=== PATIENT | female | born 1985 | race Caucasian/White ===

== ENCOUNTER → 2019-09-03 17:20 | Outpatient (CLI) | payer BC, SELFPAY ==
[2019-09-03 11:43] VITALS: BMI 29.6
[2019-09-03 18:06] LABS: Amphetamine Urine VISTA NEGATIVE (<1000 ng/mL); Barbiturate Urine VISTA NEGATIVE (< 200 ng/mL); Benzodiazepine Urine VISTA NEGATIVE (< 200 ng/mL); Cocaine Urine VISTA NEGATIVE (< 300 ng/mL); Ecstacy Urine VISTA NEGATIVE (< 500 ng/mL); Methadone Urine VISTA NEGATIVE (< 300 ng/mL); PCP Urine VISTA NEGATIVE (< 25 ng/mL); THC Urine VISTA NEGATIVE (< 50 ng/mL); Vista UDS pH Range 6
[2019-09-03 19:03] LABS: Chlamydia Trachomatis by PCR Negative (Negative); Neisserai gonorrhoeae by PCR Negative (Negative); Probe Check PASS; Sample Adequacy Control PASS; Specimen Processing Control PASS
[2019-09-10 15:26] LABS: HPV APTIMA, High Risk Negative (Negative)
== END ==
PROVIDERS: Referring Provider Obstetrics & Gynecology; Visit Provider Obstetrics & Gynecology
DX: Z12.4 Encounter for screening for malignant neoplasm of cervix (principal); Z34.90 Encounter for supervision of normal pregnancy, unspecified, unspecified trimester
CPT/HCPCS: 80307; 87086; 87088; 87491; 87591; 87624; 88175; G0145

== ENCOUNTER → 2019-09-11 16:19 | Outpatient (CLI) | payer BC, SELFPAY ==
[2019-09-03 11:43] VITALS: BMI 29.6
[2019-09-11 17:07] LABS: Absolute Lymphocyte Count 2.01 X10^3/uL (0.83-4.51); Absolute Neutrophil Count 6.4 X10^3/uL (2.0-7.7); Basophil# 0.03 X10^3/uL; Basophil% 0.3 % (0-1); Eosinophil# 0.11 X10^3/uL; Eosinophils% 1.2 % (0-5); Hematocrit 36.1 % (37-47); Hemoglobin 12.1 g/dL (12.0-15.0); Lymphocyte # 2.01 X10^3/ul (4.0); Lymphocyte % 21.9 % (19-41); Mean Corp Hgb Conc 33.5 g/dL (32-36); Mean Corpuscular Hgb 30.9 pg (27.0-32.0); Mean Corpuscular Volume 92.1 fL (81-99); Mean Platelet Vol. 12.3 fl (6.2-12.0); Monocyte# 0.66 X10^3/uL; Monocyte% 7.2 % (0-10); NRBC Flagged by Analyzer 0 % (0-5); Neutrophil # 6.36 X10^3/uL (2.7-7.7); Neutrophil % 69.2 % (47-70); Platelet Count 232 K/mm3 (150-450); RBC Distribution Width CV 12.2 % (11.6-14.6); RBC Distribution Width SD 40.8 fl (35.1-43.9); Red Blood Count 3.92 M/mm3 (4.2-5.4); White Blood Count 9.2 K/mm3 (4.4-11.0)
[2019-09-11 17:43] LABS: NATERA MAILED SPECIMEN
[2019-09-12 09:15] LABS: HIV - WCH Non-Reactive (Nonreactive); Hepatitis B Surface Antigen Non-Reactive (Nonreactive); Hepatitis C Antibody Non-Reactive (Nonreactive); Rubella IgG 412.8 IU/mL
[2019-09-13 02:01] LABS: Rapid Plasmin Reagin (RPR) NONREACTIVE (NONREACTIVE)
== END ==
PROVIDERS: Referring Provider Obstetrics & Gynecology; Visit Provider Obstetrics & Gynecology
DX: Z34.81 Encounter for supervision of other normal pregnancy, first trimester (principal); Z31.430 Encounter of female for testing for genetic disease carrier status for procreative management
CPT/HCPCS: 36415; 85025; 86592; 86703; 86762; 86803; 86850; 86900; 86901; 87340

== ENCOUNTER → 2019-11-26 16:11 | Outpatient (CLI) | payer BC, SELFPAY ==
[2019-11-26 15:35] VITALS: BMI 31.7
[2019-11-26 17:40] LABS: T4 Free Direct 0.95 ng/dL (0.76-1.46); Thyroid Stim Hormone (TSH) 2.54 uIU/mL (0.358-3.74)
== END ==
PROVIDERS: Referring Provider Nurse Practitioner Women's Health; Visit Provider Nurse Practitioner Women's Health
DX: Z13.29 Encounter for screening for other suspected endocrine disorder (principal); E03.9 Hypothyroidism, unspecified
CPT/HCPCS: 36415; 84439; 84443

== ENCOUNTER → 2020-01-14 12:48 | Outpatient (CLI) | payer BC, SELFPAY ==
[2019-12-24 13:43] VITALS: BMI 32.2
[2020-01-14 13:27] LABS: Absolute Lymphocyte Count 1.75 X10^3/uL (0.83-4.51); Absolute Neutrophil Count 6.1 X10^3/uL (2.0-7.7); Basophil# 0.03 X10^3/uL; Basophil% 0.4 % (0-1); Eosinophil# 0.06 X10^3/uL; Eosinophils% 0.7 % (0-5); Hematocrit 32.9 % (37-47); Hemoglobin 10.9 g/dL (12.0-15.0); Lymphocyte # 1.75 X10^3/ul (4.0); Lymphocyte % 20.6 % (19-41); Mean Corp Hgb Conc 33.1 g/dL (32-36); Mean Corpuscular Hgb 31.1 pg (27.0-32.0); Mean Platelet Vol. 12.3 fl (6.2-12.0); Monocyte# 0.46 X10^3/uL; Monocyte% 5.4 % (0-10); NRBC Flagged by Analyzer 0 % (0-5); Neutrophil # 6.14 X10^3/uL (2.7-7.7); Neutrophil % 72.1 % (47-70); Platelet Count 167 K/mm3 (150-450); RBC Distribution Width CV 12.8 % (11.6-14.6); RBC Distribution Width SD 43.9 fl (35.1-43.9); White Blood Count 8.5 K/mm3 (4.4-11.0)
[2020-01-14 13:53] LABS: Glucose Challenge Gest 1H 50g 108 mg/dL (70-140)
== END ==
PROVIDERS: Referring Provider Obstetrics & Gynecology; Visit Provider Obstetrics & Gynecology
DX: Z13.1 Encounter for screening for diabetes mellitus (principal); O09.90 Supervision of high risk pregnancy, unspecified, unspecified trimester
CPT/HCPCS: 36415; 82950; 85025

== ENCOUNTER → 2020-02-11 14:09 | Outpatient (CLI) | payer BC, SELFPAY ==
[2020-02-11 13:26] VITALS: BMI 34.0
[2020-02-11 14:54] LABS: Absolute Lymphocyte Count 1.91 X10^3/uL (0.83-4.51); Absolute Neutrophil Count 5.9 X10^3/uL (2.0-7.7); Basophil# 0.03 X10^3/uL; Basophil% 0.4 % (0-1); Eosinophil# 0.08 X10^3/uL; Eosinophils% 0.9 % (0-5); Hematocrit 33.2 % (37-47); Lymphocyte # 1.91 X10^3/ul (4.0); Lymphocyte % 22.6 % (19-41); Mean Corp Hgb Conc 33.1 g/dL (32-36); Mean Corpuscular Hgb 30.6 pg (27.0-32.0); Mean Corpuscular Volume 92.5 fL (81-99); Mean Platelet Vol. 12.5 fl (6.2-12.0); Monocyte# 0.47 X10^3/uL; Monocyte% 5.5 % (0-10); NRBC Flagged by Analyzer 0 % (0-5); Neutrophil # 5.86 X10^3/uL (2.7-7.7); Neutrophil % 69.2 % (47-70); Platelet Count 172 K/mm3 (150-450); RBC Distribution Width CV 13.1 % (11.6-14.6); RBC Distribution Width SD 43.5 fl (35.1-43.9); Red Blood Count 3.59 M/mm3 (4.2-5.4); White Blood Count 8.5 K/mm3 (4.4-11.0)
[2020-02-11 15:27] LABS: T4 Free Direct 0.86 ng/dL (0.76-1.46); Thyroid Stim Hormone (TSH) 1.85 uIU/mL (0.358-3.74)
== END ==
PROVIDERS: Referring Provider Obstetrics & Gynecology; Visit Provider Obstetrics & Gynecology
DX: E03.9 Hypothyroidism, unspecified (principal); O99.019 Anemia complicating pregnancy, unspecified trimester; D64.9 Anemia, unspecified; Z3A.00 Weeks of gestation of pregnancy not specified
CPT/HCPCS: 36415; 84439; 84443; 85025

== ENCOUNTER → 2020-03-10 13:17 | Outpatient (CLI) | payer BC, SELFPAY ==
[2020-03-10 10:51] VITALS: BMI 34.7
== END ==
PROVIDERS: Referring Provider Obstetrics & Gynecology; Visit Provider Obstetrics & Gynecology
DX: O09.90 Supervision of high risk pregnancy, unspecified, unspecified trimester (principal)
CPT/HCPCS: 87081

== ENCOUNTER → 2020-03-24 09:22 | Outpatient (CLI) | payer BC, SELFPAY ==
[2020-03-17 10:42] VITALS: BMI 35.6
--- NOTE | 2020-03-24 09:26 | US_ITS ---
STUDY: SECOND AND THIRD TRIMESTER OBSTETRICAL ULTRASOUND - LIMITED REASON FOR EXAM: Female, 34 years old LARGER THEN DATES LMP: 07/01/2019. PRIOR ULTRASOUND: None. TECHNIQUE: Transabdominal TECHNICAL QUALITY: Adequate. FINDINGS: There is a single intrauterine fetus. The fetus is in a cephalic presentation. There is demonstrated cardiac activity with a heart rate of 144 bpm. There is a normal amniotic fluid volume. The largest amniotic fluid pocket measures 4 cm. The amniotic fluid index (ALEYDA) is 13 cm. The placenta is posterior and left lateral in location and is not low lying. There are Grade 3 placental changes. The cervix measures 3.5 cm in length. BIOMETRY: BPD: 9 cm: 36 weeks, 3 days HC: 33.4 cm: 38 weeks, 1 days AC: 37.6 cm: 40 weeks, 4 days FL: 7.4 cm: 38 weeks, 0 days Age by LMP: 38 weeks, 1 days. VIDYA by LMP: 04/06/2020. age by current US: 38 weeks, 2 days. VIDYA by current US: 04/05/2020. Estimated weight: 3691 grams, +/- 539 grams, 85 percentile. US/OB Limited With Biometrics IMPRESSION: Single live intrauterine gestation with a mean gestational age of 38 weeks and 2 days. Electronically Signed: Andrea Nieves MD at 11:15 EST , Service support ,
== END ==
PROVIDERS: Referring Provider Obstetrics & Gynecology; Visit Provider Obstetrics & Gynecology
DX: O26.849 Uterine size-date discrepancy, unspecified trimester (principal); Z3A.00 Weeks of gestation of pregnancy not specified
CPT/HCPCS: 76816

== ENCOUNTER 2020-03-26 04:35 | Inpatient (IN) | payer BC, SELFPAY ==
[2020-03-24 10:26] VITALS: BMI 35.4
[2020-03-26] VITALS (53 sets, daily range): BP systolic 105–158; BP diastolic 52–94; PULSE 78–109; RESP 16; TEMP 36.2–37.3; O2SAT 90–100; BMI 35.3
[2020-03-26] MEDS: Lactated Ringers 1,000 ML 50 ML IV (05:00)
[2020-03-26 05:13] LABS: Absolute Lymphocyte Count 2.29 X10^3/uL (0.83-4.51); Absolute Neutrophil Count 5.5 X10^3/uL (2.0-7.7); Basophil# 0.02 X10^3/uL; Basophil% 0.2 % (0-1); Eosinophil# 0.07 X10^3/uL; Eosinophils% 0.8 % (0-5); Hematocrit 33.5 % (37-47); Lymphocyte # 2.29 X10^3/ul (4.0); Mean Corp Hgb Conc 32.8 g/dL (32-36); Mean Corpuscular Hgb 30.1 pg (27.0-32.0); Mean Corpuscular Volume 91.5 fL (81-99); Mean Platelet Vol. 13.2 fl (6.2-12.0); Monocyte# 0.58 X10^3/uL; Monocyte% 6.8 % (0-10); NRBC Flagged by Analyzer 0 % (0-5); Neutrophil # 5.45 X10^3/uL (2.7-7.7); Neutrophil % 64.4 % (47-70); Platelet Count 152 K/mm3 (150-450); RBC Distribution Width CV 13.7 % (11.6-14.6); RBC Distribution Width SD 45.1 fl (35.1-43.9); Red Blood Count 3.66 M/mm3 (4.2-5.4); White Blood Count 8.5 K/mm3 (4.4-11.0)
[2020-03-26] MEDS: Lactated Ringers 500 ML 999 ML IV (06:00)
[2020-03-26] MEDS: fentaNYL-bupivacaine (epidural) 100 ML BAG EPIDURAL ×2 (06:53→11:56)
--- NOTE | 2020-03-26 07:16 | HP.PCM_ITS ---
- Problem List (1) SROM (spontaneous rupture of membranes) Status: Acute (2) 35 weeks gestation of Status: Acute Comment: electronic covid test ordered 03/03/20 (scheduled for 03/31/20 at 1330), 03/24 US nl (3) Anemia affecting Status: Acute Qualifiers: Comment: Start iron (4) History of delivery Status: Acute Comment: plan TOLAC 67% chance success. previous cs for NRFHTs. (5) History of tetanus, diphtheria, and acellular pertussis booster vaccination (Tdap) Status: Acute Comment: 01/14/20 (6) Hypothyroid Status: Acute Qualifiers: Comment: check labs q trimester(11/25:nl) (7) Status: Acute Qualifiers: Comment: NIPT low risk, carrier, and ntd screening planned. carrier neg. NL anatomy (8) Supervision of high-risk Status: Acute Qualifiers: Comment: PRR VIDYA 04/06/20 Boy - Low PC Rama Jose History and Physical Date of Admission: 03/26/20 Intake Vital Signs 03/24/20 Height 5 ft 2 in 03/24/20 Weight: 194 lb 03/24/20 BMI 35.4 03/24/20 BP 128/64 H Intake Visit Reasons: 38 WK OB Chief Complaint: est ob Shactor Helper Required: No Is patient in pain?: No Allergies Sulfa (Sulfonamide Antibiotics) Allergy (Mild, Verified 03/24/20 10:26) hives Medications fluticasone propionate 50 mcg/actuation nasal spray,suspension 2 spray INTRANASAL DAILY 09/03/19 [History Confirmed 03/24/20] levocetirizine 5 mg tablet 5 mg PO DAILY 09/03/19 [History Confirmed 03/24/20] levothyroxine 50 mcg tablet 50 mcg PO DAILY 09/03/19 [History Confirmed 03/24/20] vitamin#30 30 mg iron-10 mg iron-folic acid 1 mg-omg3 capsule cap PO 09/03/19 [History Confirmed 03/24/20] Last Menstral Period: 06/24/19 Zika: Zika virus screening: Negative : No PFSH PFSH Medical History Thyroid disorder (Acute) Chronic sinus infection (Chronic) Surgical History delivery delivered (Acute) H/O rhinoplasty (Acute) Hx of LASIK (Acute) Family History Mother Hypertension Hyperlipidemia TIA (transient ischemic attack) Father Hypertension Grandmother Uterine cancer, Onset Age: 60 Grandfather Cancer stomach cancer (paternal) Social History (Updated 03/24/20 @ 11:[address] Renetta Toribio MD) Smoking Status: Never smoker alcohol intake: current details: pre substance use type: does not use caffeine: Yes what type of physical activity do you participate in: walking seatbelt use: always do you feel safe at home: Yes additional social history: Jose- SSA Patient works in [employer] ([employer]) Pregancy History 2 Elective abortions Hx Para 1 Spontaneous abortions Hx # Term Pregnancies Ectopic pregnancies Hx # Pregnancies Multiple births # of living children Past Pregnancies Del. Date Name GA/Weeks Outcome Route Bth Weight Gen Labor Lgth Anesthesia Del [facility] Provider FOB Unknown Rama 11/09/2014 40 live - full term 7lbs 1oz Female spinal [facility] Dr. Carrington Delivery Date: NST Decels, spontaneous ROM, Pitocin decels Renetta Torbiio HPI 38 WK OB: Details: DEONTE SESAY is a 34 year old who presents with spontaneous rupture m embranes clear fluid and regular contractions. She had previous for nonreassuring heart tones OB Visit VIDYA Calculator Estimated Delivery Date Method Current WG Current Estimate 04/06/20 Ultrasound #1 38w 1d Other Estimates 03/30/20 LMP (Certain) 39w 1d Expected Delivery Route/Plan TOLAC by 41 weeks RLTCS vs IOL at that GA based on vizcaino score patient counseled regarding risks/benefits of trial of labor versus repeat . ACOG/uptodate education given to patient. 67 % likelihood of success per calculator TOLAC consent form signed: signed 01/27 Labor Preferences- CB/BF classes: no labor support person: Jose labor intervention preferences: open to AROM, would like to avoid pitocin if possible pain management options preferred: prefers natural but open to epidural cut cord/dad catch: maybe cord : [] PP control planned: [] discussed possible routes of delivery and associated risks: discussed possible delivery modalities and possible indications for each including R/B/A of , VAVD, FAVD and CS. questions answered. special requests: no Specific Issue/Plans flu vaccine: yes tdap vaccine: 01/13 rhogam: NA LARC form signed: 01/13 movement and labor precautions reviewed. Problem list reviewed and updated with the most current plan of care details and appropriate orders placed. Relevant counseling for the gestational age provided. Continue routine care and follow up unless otherwise noted in visit notes/problem list details Initial Weight: 160 lb Date EGA Weight BP Urine Prot Glucose FHR FuHt Pres Dilation Effaced St Visit Note 09/03/19 9w 1d 162 lb (+2 lb) 116/66 175 SM- CRL SM- CRL- 2.19cm SM- CRL- 2.19cm not consistent with LMP 10/01/19 13w 1d 165 lb 4 oz (+5 lb 4 oz) 126/70 Negative Negative 160 MH-no VB, LOF. Nausea lessening. Brief US to confirm FHT. Recent antibiotic for URI. Sx of yeast-enc OTC monistat 10/29/19 17w 1d 167 lb (+7 lb) 108/66 Negative Negative 145 18 Sm- no vb cramping discussed fatigue and stress. moving. 11/26/19 21w 1d 173 lb 8 oz (+13 lb 8 oz) 112/72 Negative Negative 147 21 MH-No VB, LOF. Good FM. Flu vaccine. Reviewed anatomy US MH-No VB, LOF. Good FM. Flu vaccine. MH-No VB, LOF. Good FM. Flu vaccine. TSH and T4 today. Reviewed normal anatomy US 12/24/19 25w 1d 176 lb 2 oz (+16 lb 2 oz) 120/76 Negative Negative 150 25 GP - no ctx, LOF, VB, DFM. GCT next visit. 01/14/20 28w 1d 180 lb 8 oz (+20 lb 8 oz) 122/60 Negative Negative 135 28 GP- no ctx, LOF, VB, DFM. GCT done but pending. TDAP given. LARC form signed. 01/28/20 30w 1d 120/80 140 30 SM- no vb lof good fm no regular ctx. tolac consent signed SM- no vb lof good fm no regular ctx. tolac consent signed. check cbc tsh next visit 02/11/20 32w 1d 186 lb 4 oz (+26 lb 4 oz) 130/82 Negative Negative 130 32 GP - no LOF, VB, DFM, ctx. Discussed COVID precautions and vaccine 02/25/20 34w 1d 188 lb (+28 lb) 124/80 135 34 SM- no vb lof good fm no regular ctx, discussed covid vaccine. 03/10/20 36w 1d 190 lb 4 oz (+30 lb 4 oz) 126/82 Negative Negative 180 155 36 Cephalic 0.5 50 -2 GP - no LOF, VB, DFM, ctx . Discussed labor preferences and routes of delivery. Baby tachy initially on doppler - NST done in office. 03/17/20 37w 1d 195 lb (+35 lb) 150 37 Cephalic 0.5 SM- no vb lof good fm no regular ctx 03/24/20 38w 1d 194 lb (+34 lb) 128/64 Negative Negative 140 38 Cephalic 0.5 SM- no vb lof good fm irregular ctx increased swelling ACOG First Trimester First Trimester: Desire for , Alcohol, Tobacco Cessation, Illicit/R ecreational Drug/Substance Use, Intimate Partner Violence, Barriers to care, Unstable Housing, Communication Barriers, Environmental/Work Hazards, Anticipated Course of Care, Toxoplasmosis Precations, Use of Any medications, Sexual activity, Exercise, Dental Care, Sauna/Hot tub use, Seat Belt use, Childbirth classes/Hospital facilities, , Travel, Indications for US and Screening for Aneuploidy Diagnostics Diagnostics Diagnostics Glucose 1 Hr 50 gm 108 mg/dL (70-140) 01/14/20 Hgb 11.0 g/dL (12.0-15.0) L 02/11/20 Hct 33.2 % (37-47) L 02/11/20 Details: HIV: Urine Culture: Sequential Screen: NIPT Screen: ROS Const Reports system reviewed and no additional complaints, except as docu Card Reports system reviewed and no additional complaints, except as docu Resp Reports system reviewed and no additional complaints, except as docu GI Reports system reviewed and no additional complaints, except as docu, Reports nausea Reports system reviewed and no additional complaints, except as docu Musc Reports system reviewed and no additional complaints, except as docu Exam Const General: cooperative, healthy appearing, comfortable, anxious [facility] Head: normal to inspection Nose: external nose normal Face and sinus: normal facial exam Neck Neck: normal visual inspection, full ROM, no lymphadenopathy Thyroid: thyroid normal Chest Chest palpation & inspection: normal inspection of the chest Resp Effort & Inspection: normal respiratory effort GI Inspection: normal to inspection Palpation: soft, other (gravid uterus) Other: vertex and appropriate size for gestational age Other: Cervical Exam: Extrem General: pedal edema Results POC Urinalysis 2 Dip (Clinic) Office Urine Glucose Negative Last Edit by Martita Carney on 03/24/20 10:3 1 Office Urine Protein Negative Last Edit by Martita Carney on 03/24/20 10:3 1 Assessment & Plan Problems 1. Supervision of high-risk O09.90 PRR VIDYA 04/06/20 Jesus CARTAGENA Rama Ojse 2. History of delivery Z98.891 plan TOLAC 67% chance success. previous cs for NRFHTs. 3. Hypothyroid E03.9 check labs q trimester(11/25:nl) 4. Anemia affecting O99.019 Start iron 5. 35 weeks gestation of Z3A.35 electronic covid test ordered 03/03/20 (scheduled for 03/31/20 at 1330) 6. Z34.90 NIPT low risk, carrier, and ntd screening planned. carrier neg. 14 NL anatomy 7. History of tetanus, diphtheria, and acellular pertussis booster vaccination (Tdap) Z92.29 01/14/20 Patient presents IAL, plan expectant management for , SROM clear fluid. Pain management: [plans epidural]. GBS negative. Management of any complications: [none] I have reviewed the [facility], [facility] and made any clinically relevant updates. Orders Orders: POC Urinalysis 2 Dip (Clinic) Today Coding Level of Care Code OB Routine Diagnoses Supervision of high-risk O09.90 History of delivery Z98.891 Hypothyroid E03.9 Anemia affecting O99.019 35 weeks gestation of Z3A.35 Z34.90 History of tetanus, diphtheria, and acellular pertussis booster vaccination (Tdap) Z92.29
[2020-03-26] MEDS: Lactated Ringers 1,000 ML 200 ML IV ×2 (09:09→14:07)
[2020-03-26] MEDS: Oxytocin 30 units/NS 500 ml 30 UNITS/500 ML IV.SOLN 334 UNITS IV (14:48)
--- NOTE | 2020-03-26 15:22 | PCM.OPRPT ---
Problem List (1) SROM (spontaneous rupture of membranes) Status: Acute (2) 35 weeks gestation of Status: Acute Comment: electronic covid test ordered 03/03/20 (scheduled for 03/31/20 at 1330), 03/24 US nl (3) Anemia affecting Status: Acute Qualifiers: Comment: Start iron (4) History of tetanus, diphtheria, and acellular pertussis booster vaccination (Tdap) Status: Acute Comment: 01/14/20 (5) Hypothyroid Status: Acute Qualifiers: Comment: check labs q trimester(11/25:nl) (6) History of delivery Status: Acute Comment: plan TOLAC 67% chance success. previous cs for NRFHTs. (7) Status: Acute Qualifiers: Comment: NIPT low risk, carrier, and ntd screening planned. carrier neg. NL anatomy (8) Supervision of high-risk Status: Acute Qualifiers: Comment: PRR VIDYA 04/06/20 Jesus - Low PC Rama Jose Vaginal Delivery Maternal Presentation: Active Labor 34yo at 38 weeks admitted in active labor. Made cervical change to complete dilation without augmentation Amniotic Membrane Rupture Type: Spontaneous at home Amniotic Fluid Description: Clear Final VIDYA: 04/06/20 Gestational age: 38 Weeks and 3 Days Date of Procedure: 03/26/20 Pre-Operative Diagnosis: Term , TOLAC, Active labor Post-Operative Diagnosis: Successful Surgery/ Procedure Performed: Spontaneous Vaginal Delivery Type of Anesthesia: Epidural Description of Procedure: Patient began pushing and delivered the head in the EFE presentation. The head was delivered atraumatically and a loose nuchal cord ?1 was identified and easily reduced over the infant's head. The anterior and posterior shoulders delivered without complication followed by the rest of the infant and the was placed on the maternal abdomen. Delayed cord clamping was employed for approximately 60 seconds. Cord was clamped and cut and gentle traction was applied to the cord and the placenta delivered spontaneously immediately following it was noted to be intact with three-vessel cord. The perineum and vagina were inspected and a midline second degree perineal laceration was noted and repaired in the standard fashion using 3-0 vicryl rapide suture. EBL was 150 cc. Patient and tolerated delivery well. Presentation: Vertex, MAKEDA Placental Delivery Description: Spontaneous Placenta Disposition: [facility] Cord Vessel Description: 3 Vessels Nuchal Cord Compression: Without compression Cord Entanglement: Around neck x 1, loose Drain: Bruno to straight drain Estimated Blood Loss: 150 Infant A gender: Male (1 minute): 8 (5 minute): 9 Episiotomy Description: None Laceration: Midline, Perineal Extension/lac, 2nd degree Medications given after delivery: IV Pitocin Complications: None Multi Select Codes - Urinary/Genital Urinary/Genital CPT Codes: 79171 delivery [facility]
[2020-03-26] MEDS: Naproxen 250 MG Tablet 500 MG PO (17:06)
[2020-03-26] MEDS: 0.9% Saline Lock 10 ML Syringe IV (17:19)
[2020-03-26] MEDS: Oxymetazoline 0.05% 1 SPRAY SPRAY.BTL NASAL (21:16)
[2020-03-26] MEDS: Acetaminophen 500 MG Tablet 1000 MG PO (23:46)
[2020-03-27] VITALS (8 sets, daily range): BP systolic 112–124; BP diastolic 58–72; PULSE 77–80; RESP 16–18; TEMP 36.3–36.6
[2020-03-27] MEDS: Naproxen 250 MG Tablet 500 MG PO ×2 (02:06→11:22)
[2020-03-27] MEDS: Levothyroxine 50 MCG Tablet PO (06:34)
--- NOTE | 2020-03-27 07:42 | PCM.PN.OB ---
Patient Problems: Active and Suspected Problems (Last Reviewed 03/24/20 @ 10:27 by Martita Carney) SROM (spontaneous rupture of membranes) (Acute) 35 weeks gestation of (Acute) electronic covid test ordered 03/03/20 (scheduled for 03/31/20 at 1330), 03/24 nl Anemia affecting (Acute) Start iron History of tetanus, diphtheria, and acellular pertussis booster vaccination (Tdap) (Acute) 01/14/20 Hypothyroid (Acute) check labs q trimester(11/25:nl) History of delivery (Acute) plan TOLAC 67% chance success. previous cs for NRFHTs. (Acute) NIPT low risk, carrier, and ntd screening planned. carrier neg. NL anatomy Supervision of high-risk (Acute) PRR VIDYA 04/06/20 Boy - Low CARTAGENA Rama Jose Subjective: Patient doing well without complaints. Tolerating PO. Ambulating and voiding without difficulty. Breast feeding well. Denies chest pain, shortness of breath, calf pain/swelling, fevers, chills, lightheadedness. - Physical Exam Vitals/I&O's: Vital Signs Temp Pulse Resp BP Pulse Ox 97.5 F L 80 16 114/58 L 100 03/27/20 03:42 03/27/20 03:42 03/27/20 03:42 03/27/20 03:42 03/26/20 17:33 Weight: 193 lb Body Mass Index (BMI) 35.3 Intake and Output for Last 24 Hours 03/25/20 03/26/20 03/27/20 23:59 23:59 23:59 Intake Total 3472.50 / 3472.50 Output Total 1000 / 1000 Balance 2472.50 / 2472.50 General: Alert, Oriented x3, Cooperative, No apparent distress, Well developed, Well nourished HEENT: Atraumatic, PERRLA, EOMI, Normocephalic Neck: Supple, No JVD Lungs: Normal air movement Cardiovascular: Regular rate Abdomen: Soft, Non Tender, Non-Distended, - - fundus firm Extremities: No Calf Tenderness, Edema - trace Neurological: Cranial nerves II-XII grossly intact, Neuro grossly intact Psych/Mental Status: Normal Affect, Appropriate Microbiology Past 72 Hours 03/26/20 05:10 Mucosa - Nose SARS-CoV-2 Antigen (Rapid) - Final Current Medications Acetaminophen (Acetaminophen 500 Mg Tablet) 1,000 mg PO Q8H PRN PRN PRN Reason: Pain Score 1-3 Last Admin: 03/26/20 23:46 Dose: 1,000 mg Documented by: Bisacodyl (Bisacodyl 10 Mg Suppository) 10 mg RC UD PRN PRN Reason: If no BM Dibucaine (Dibucaine 30 Gm Tube) 1 applic TOPICAL TID PRN PRN; Protocol PRN Reason: Discomfort Hydrocortisone (Hydrocortisone 2.5% Crm) 1 applic TOPICAL TID PRN PRN; Protocol PRN Reason: Discomfort Levothyroxine Sodium (Levothyroxine 50 Mcg Tablet) 50 mcg PO DAILY@0600 [facility] Last Admin: 03/27/20 06:34 Dose: 50 mcg Documented by: Methylergonovine Maleate (Methylergonovine 0.2 Mg/Ml Ampul) 0.2 mg IM X1 PRN PRN Reason: Excess bleeding/uterine atony Naproxen (Naproxen 250 Mg Tablet) 500 mg PO Q8H PRN PRN PRN Reason: Pain Score 1-3 Last Admin: 03/27/20 02:06 Dose: 500 mg Documented by: Ondansetron HCl (Ondansetron 4 Mg/2 Ml Vial) 4 mg IV Q4H PRN PRN PRN Reason: Nausea Oxycodone HCl (Oxycodone 5 Mg Tablet) 5 - 10 mg PO Q4H PRN PRN PRN Reason: Pain Score 4-10 Oxymetazoline HCl (Oxymetazoline 0.05% 1 Gordon Gordon.Btl) 1 spray NASAL BID [facility] Last Admin: 03/26/20 21:16 Dose: 1 spray Documented by: Senna/Docusate Sodium (Senna/Docusate Sodium 1 Tablet) 1 - 2 tablet PO DAILY PRN PRN PRN Reason: Constipation Simethicone (Simethicone 80 Mg Tablet) 80 mg PO PCHS PRN PRN Reason: Indigestion/Stomach pain Sodium Chloride (0.9% Saline Lock 10 Ml Syringe) 5 - 15 ml IV UD PRN PRN Reason: SALINE FLUSH Last Admin: 03/26/20 17:19 Dose: 10 ml Documented by: Medical Necessity - Tobacco Use Smoking Status: Never smoker Assessment/Plan All Active Problems (Last Reviewed 03/24/20 @ 10:27 by Martita Carney) SROM (spontaneous rupture of membranes) (Acute) 35 weeks gestation of (Acute) Anemia affecting (Acute) History of tetanus, diphtheria, and acellular pertussis booster vaccination (Tdap) (Acute) Hypothyroid (Acute) History of delivery (Acute) (Acute) Supervision of high-risk (Acute)
--- NOTE | 2020-03-27 07:43 | DCINST_ITS ---
Discharge Diet: No Restrictions Discharge Activity: Return to Normal Activity, May not drive while taking narcotic pain medications., May Shower May resume sexual activity in: 4-6 weeks Additional Activity Instructions:: Nothing in the vagina for 4-6 weeks. You may return to work/school in 6 weeks. Call your doctor if your incision/area has: Continuous Slow Oozing, Sudden Increased Bleeding, Increased Pain/ Swelling, Increased Redness, Foul Smelling Discharge Additional Instructions: If you experience any of the following, contact your healthcare provider. * Bleeding that soaks a pad every hour for 2 hours * Fever 100.4 or higher * Unrelieved incision or abdominal pain * Swelling, redness, discharge or bleeding from your incision or episiotomy site * Your incision begins to separate * Problems urinating (including inability to urinate or burning while urinating). * Visual changes * Severe headache * Flu-like symptoms * Pain or redness in one of both of your breasts * Pain, warmth, tenderness or swelling in your legs, especially the calf area * Frequent nausea and vomiting * Symptoms of depression or anxiety If you experience any of the following, call 911 or go to the nearest Emergency Room. * Chest pain * Problems breathing * Seizure activity * Partial or complete paralysis of a body part, slurred speech, weakness or drooping of the face, or a sudden inability to walk or hold your balance Allergies/Adverse Reactions: Allergies Sulfa (Sulfonamide Antibiotics) Allergy (Mild, Verified 03/26/20 04:42) hives Medications to take at Discharge fluticasone propionate 50 mcg/actuation nasal spray,suspension 2 spray INTRANASAL DAILY 09/03/19 levocetirizine 5 mg tablet 5 mg PO DAILY 09/03/19 levothyroxine 50 mcg tablet 50 mcg PO DAILY 09/03/19 vitamin#30 30 mg iron-10 mg iron-folic acid 1 mg-omg3 capsule 1 cap PO DAILY 09/03/19 When: Call to make an appointment with your doctor in 6 weeks. If you had elevated Blood Pressure or 4th degree laceration you will need to be seen in 2 weeks. Primary Care Physician: Care Physician,No Primary [Primary Care Provider] - Test Results: Test results from this visit will be discussed in further detail at your follow- up appointment, if applicable.
[2020-03-27] MEDS: Senna/Docusate Sodium 1 Tablet PO (08:21)
[2020-03-27] MEDS: Acetaminophen 500 MG Tablet 1000 MG PO (08:21)
[2020-03-27] MEDS: Oxymetazoline 0.05% 1 SPRAY SPRAY.BTL NASAL (11:19)
== END 2020-03-27 17:05 | disposition home or self-care (01) | DRG 807 ==
LOC: WPOUT 04:38 → WP 04:38
PROVIDERS: Admitting Provider Obstetrics & Gynecology; Referring Provider Obstetrics & Gynecology; Visit Provider Obstetrics & Gynecology
DX: O70.1 Second degree perineal laceration during delivery (principal); Z37.0 Single live birth; O34.219 Maternal care for unspecified type scar from previous cesarean delivery; O99.02 Anemia complicating childbirth; D64.9 Anemia, unspecified; O99.284 Endocrine, nutritional and metabolic diseases complicating childbirth; E03.9 Hypothyroidism, unspecified; O69.1XX0 Labor and delivery complicated by cord around neck, with compression, not applicable or unspecified; Z23 Encounter for immunization; Z3A.38 38 weeks gestation of pregnancy
CPT/HCPCS: 59025; 59050; 85025; 86850; 86900; 86901; 87426; 99218; J7120; A4216; G0378

== ENCOUNTER → 2021-01-20 17:13 | Outpatient (CLI) | payer BC, SELFPAY ==
[2021-01-20 18:12] LABS: Amphetamine Urine VISTA NEGATIVE (<1000 ng/mL); Barbiturate Urine VISTA NEGATIVE (< 200 ng/mL); Benzodiazepine Urine VISTA NEGATIVE (< 200 ng/mL); Cocaine Urine VISTA NEGATIVE (< 300 ng/mL); Ecstacy Urine VISTA NEGATIVE (< 500 ng/mL); Methadone Urine VISTA NEGATIVE (< 300 ng/mL); PCP Urine VISTA NEGATIVE (< 25 ng/mL); THC Urine VISTA NEGATIVE (< 50 ng/mL); Vista UDS pH Range 7
[2021-01-22 22:07] LABS: Chlamydia By Nucleic Acid AMP Negative (Negative)
[2021-01-23 16:08] LABS: Gonococcus By Nucleic Acid AMP Negative (Negative)
== END ==
PROVIDERS: Referring Provider Obstetrics & Gynecology; Visit Provider Obstetrics & Gynecology
DX: Z34.80 Encounter for supervision of other normal pregnancy, unspecified trimester (principal)
CPT/HCPCS: 80307; 87086; 87491; 87591

== ENCOUNTER → 2021-02-02 09:32 | Outpatient (CLI) | payer BC, SELFPAY ==
[2021-02-02 10:15] LABS: Absolute Lymphocyte Count 1.35 X10^3/uL (0.83-4.51); Absolute Neutrophil Count 4.4 X10^3/uL (2.0-7.7); Basophil# 0.02 X10^3/uL; Basophil% 0.3 % (0-1); Eosinophil# 0.07 X10^3/uL; Eosinophils% 1.1 % (0-5); Hematocrit 37.8 % (37-47); Hemoglobin 12.7 g/dL (12.0-15.0); Lymphocyte # 1.35 X10^3/ul (0.83-4.51); Lymphocyte % 22.1 % (19-41); Mean Corp Hgb Conc 33.6 g/dL (32-36); Mean Corpuscular Hgb 29.9 pg (27.0-32.0); Mean Corpuscular Volume 88.9 fL (81-99); Monocyte% 4.9 % (0-10); NRBC Flagged by Analyzer 0 % (0-5); Neutrophil # 4.35 X10^3/uL (2.7-7.7); Neutrophil % 71.3 % (47-70); Platelet Count 193 K/mm3 (150-450); RBC Distribution Width SD 42.2 fl (35.1-43.9); Red Blood Count 4.25 M/mm3 (4.2-5.4); White Blood Count 6.1 K/mm3 (4.4-11.0)
[2021-02-02 10:34] LABS: Glucose Challenge Gest 1H 50g 96 mg/dL (70-140)
[2021-02-02 10:46] LABS: NATERA MAILED SPECIMEN
[2021-02-02 11:18] LABS: HIV - WCH Non-Reactive (Nonreactive); Hepatitis B Surface Antigen Non-Reactive (Nonreactive); Hepatitis C Antibody Non-Reactive (Nonreactive); Rubella IgG Reactive (Nonreactive); Syphilis Antibodies Non-reactive
== END ==
PROVIDERS: Referring Provider Obstetrics & Gynecology; Visit Provider Obstetrics & Gynecology
DX: Z34.80 Encounter for supervision of other normal pregnancy, unspecified trimester (principal)
CPT/HCPCS: 36415; 82950; 85025; 86703; 86762; 86780; 86803; 86850; 86900; 86901; 87340

== ENCOUNTER 2021-02-17 14:46 | Outpatient (CLI) | payer BC, SELFPAY ==
[2021-02-17 16:48] LABS: Thyroid Stim Hormone (TSH) 1.17 uIU/mL (0.358-3.74)
== END 2021-02-17 23:59 | disposition short-term general hospital (02) ==
LOC: LAB 14:51
PROVIDERS: Visit Provider Obstetrics & Gynecology
DX: E03.9 Hypothyroidism, unspecified (principal)
CPT/HCPCS: 36415; 84443

== ENCOUNTER 2021-06-02 14:40 | Outpatient (CLI) | payer BC, SELFPAY ==
[2021-06-02 15:20] LABS: Absolute Lymphocyte Count 2.03 X10^3/uL (0.83-4.51); Absolute Neutrophil Count 6.4 X10^3/uL (2.0-7.7); Basophil# 0.02 X10^3/uL; Basophil% 0.2 % (0-1); Eosinophil# 0.07 X10^3/uL; Eosinophils% 0.8 % (0-5); Hematocrit 33.1 % (37-47); Lymphocyte # 2.03 X10^3/ul (0.83-4.51); Lymphocyte % 22.2 % (19-41); Mean Corp Hgb Conc 33.2 g/dL (32-36); Mean Corpuscular Hgb 30.6 pg (27.0-32.0); Mean Corpuscular Volume 91.9 fL (81-99); Mean Platelet Vol. 12.9 fl (6.2-12.0); Monocyte# 0.54 X10^3/uL; Monocyte% 5.9 % (0-10); NRBC Flagged by Analyzer 0 % (0-5); Neutrophil # 6.36 X10^3/uL (2.7-7.7); Neutrophil % 69.7 % (47-70); Platelet Count 169 K/mm3 (150-450); RBC Distribution Width CV 13.3 % (11.6-14.6); RBC Distribution Width SD 45.1 fl (35.1-43.9); White Blood Count 9.1 K/mm3 (4.4-11.0)
[2021-06-02 16:00] LABS: Glucose Challenge Gest 1H 50g 120 mg/dL (70-140); T4 Free Direct 0.83 ng/dL (0.76-1.46); Thyroid Stim Hormone (TSH) 1.78 uIU/mL (0.358-3.74)
== END 2021-06-02 23:59 | disposition home or self-care (01) ==
PROVIDERS: Referring Provider Obstetrics & Gynecology; Visit Provider Obstetrics & Gynecology
DX: O09.899 Supervision of other high risk pregnancies, unspecified trimester (principal); O99.280 Endocrine, nutritional and metabolic diseases complicating pregnancy, unspecified trimester; E03.9 Hypothyroidism, unspecified
CPT/HCPCS: 36415; 82950; 84439; 84443; 85025

== ENCOUNTER → 2021-07-01 | Outpatient (CLI) | payer BC, SELFPAY ==
--- NOTE | 2021-07-01 15:16 | US_ITS ---
STUDY: SECOND AND THIRD TRIMESTER OBSTETRICAL ULTRASOUND - LIMITED REASON FOR EXAM: Female, 36 years old growth @ 32 and 36 weeks -- standing order LMP: 11/19/2020. PRIOR ULTRASOUND: None. TECHNIQUE: Transabdominal TECHNICAL QUALITY: Adequate. FINDINGS: There is a single intrauterine fetus. The fetus is in a cephalic presentation. There is demonstrated cardiac activity with a heart rate of 139 bpm. There is a normal amniotic fluid volume. The largest amniotic fluid pocket measures 5.5 cm x 2.5 cm. The amniotic fluid index (ALEYDA) is 20.54 cm. The placenta is posterior in location and is not low lying. There are Grade 2 placental changes. The cervix measures 4.4 cm in length. BIOMETRY: BPD: 8.13 cm: 32 weeks, 4 days HC: 29.65 cm: 32 weeks, 5 days AC: 28.61 cm: 32 weeks, 4 days FL: 5.98 cm: 30 weeks, 0 days Age by LMP: 32 weeks, 0 days. VIDYA by LMP: 08/26/2021. age by current US: 32 weeks, 1 days. VIDYA by current US: 08/25/2021. Estimated weight: 1942 grams, +/- 291 grams, 48.2 percentile. US/OB Limited With Biometrics IMPRESSION: Single live intrauterine gestation with a mean gestational age of 32 weeks and 1 day. Electronically Signed: Andrea Nieves MD at 9:37 EDT ,
== END | disposition home or self-care (01) ==
PROVIDERS: Visit Provider Nurse Practitioner Women's Health
DX: O98.519 Other viral diseases complicating pregnancy, unspecified trimester (principal); U07.1 COVID-19
CPT/HCPCS: 76816

== ENCOUNTER → 2021-07-29 | Outpatient (CLI) | payer BC, SELFPAY ==
--- NOTE | 2021-07-29 15:25 | US_ITS ---
STUDY: SECOND AND THIRD TRIMESTER OBSTETRICAL ULTRASOUND - LIMITED REASON FOR EXAM: Female, 36 years old. growth PRIOR ULTRASOUND: Jul 01 2021 3:27pm TECHNIQUE: Transabdominal TECHNICAL QUALITY: Adequate. FINDINGS: There is a single intrauterine fetus. The fetus is in a cephalic presentation. There is demonstrated cardiac activity with a heart rate of 145 bpm. There is a normal amniotic fluid volume. The largest amniotic fluid pocket measures 4.6 cm. The amniotic fluid index (ALEYDA) is 13.9 cm. The placenta is posterior in location and is not low lying. There are Grade 2 placental changes. The cervix measures cm in length: 3.6. BIOMETRY: BPD: 86 mm: 34 weeks, 3 days HC: 332 mm: 37 weeks, 5 days AC: 324 mm: 36 weeks, 2 days FL: 67 mm: 34 weeks, 1 days CI: 75 FL/AC: 20 FL/BPD: 77 HC/AC: 1.02 age by current US: 36 weeks, 2 days. VIDYA by current US: 7.11.22. Estimated weight: 2715 grams, +/- 407 grams, 40 %. Age by LMP: 36 weeks, 0 days. VIDYA by LMP: 7.13.22. US/OB Limited With Biometrics IMPRESSION: There is a single live intrauterine with a heart rate of 145 bpm. age by current US: 36 weeks, 2 days. VIDYA by current US: 7.11.22. Estimated weight: 2715 grams, +/- 407 grams, 40 %. Electronically Signed: Gabriel Castellano MD at 16:47 EDT ,
== END | disposition home or self-care (01) ==
LOC: US 15:22
PROVIDERS: Referring Provider Obstetrics & Gynecology; Visit Provider Obstetrics & Gynecology
DX: O09.529 Supervision of elderly multigravida, unspecified trimester (principal); Z3A.00 Weeks of gestation of pregnancy not specified
CPT/HCPCS: 76816

== ENCOUNTER → 2021-07-31 | Outpatient (CLI) | payer BC, SELFPAY | END | disposition home or self-care (01) | LOC: LABSPEC 08-03 08:13 | PROVIDERS: Visit Provider Obstetrics & Gynecology | DX: Z34.80 Encounter for supervision of other normal pregnancy, unspecified trimester (principal) | CPT/HCPCS: 87081 ==

== ENCOUNTER 2021-08-18 04:53 | Inpatient (IN) | payer BC, SELFPAY ==
[2021-08-18] VITALS (36 sets, daily range): BP systolic 107–152; BP diastolic 58–101; PULSE 68–137; RESP 16–18; TEMP 36.3–36.9; O2SAT 82–100; BMI 35.6
[2021-08-18 05:01] LABS: ROM Internal Control Test YES-OK TO RESULT pt. (Internal QC)
[2021-08-18 05:02] LABS: ROM Patient Test POSITIVE (Negative)
[2021-08-18 05:42] LABS: Absolute Lymphocyte Count 2.42 X10^3/uL (0.83-4.51); Absolute Neutrophil Count 5.9 X10^3/uL (2.0-7.7); Basophil# 0.05 X10^3/uL; Basophil% 0.5 % (0-1); Eosinophil# 0.08 X10^3/uL; Eosinophils% 0.9 % (0-5); Hematocrit 35.1 % (37-47); Hemoglobin 11.5 g/dL (12.0-15.0); Lymphocyte # 2.42 X10^3/ul (0.83-4.51); Lymphocyte % 26.4 % (19-41); Mean Corp Hgb Conc 32.8 g/dL (32-36); Mean Corpuscular Hgb 30.8 pg (27.0-32.0); Mean Corpuscular Volume 94.1 fL (81-99); Mean Platelet Vol. 13.7 fl (6.2-12.0); Monocyte% 6.5 % (0-10); NRBC Flagged by Analyzer 0 % (0-5); Neutrophil # 5.92 X10^3/uL (2.7-7.7); Neutrophil % 64.6 % (47-70); Platelet Count 185 K/mm3 (150-450); RBC Distribution Width CV 13.9 % (11.6-14.6); RBC Distribution Width SD 47.4 fl (35.1-43.9); Red Blood Count 3.73 M/mm3 (4.2-5.4); White Blood Count 9.2 K/mm3 (4.4-11.0)
--- NOTE | 2021-08-18 05:43 | NURSING ---
unsuccessful IV attempts x2 each per Nia Casarez RN, Rachel Alvarez RN, and Tiffanie Camp RN, Angelika Sanabria transfer and pumphouse operator called to attempt IV
[2021-08-18] MEDS: LACTATED RINGERS 500 ML 999 ML IV (05:46)
--- NOTE | 2021-08-18 06:11 | HP.PCM.OB_ITS ---
HPI - General General Date of Admission: 08/18/21 HPI Narrative DEONTE SESAY, is a 36 F who presents IAL 4-5 cm with ROM clear fluid good fm reassuring FHT. Maternal Data Information IVDYA Calculator Estimated Delivery Date Method Current WG Current Estimate 08/26/21 LMP (Certain) 38w 6d Other Estimates 08/28/21 Ultrasound #1 38w 4d PFSH PFSH Medical History (Updated 08/18/21 @ 06:[address] Renetta Toribio MD) Chronic sinus infection Depression Lab test positive for detection of COVID-19 virus Nuchal fold thickening on ultrasound Thyroid disorder Vaginal after Home Medications fluticasone propionate 50 mcg/actuation nasal spray,suspension 2 spray intranasal DAILY nutrition 09/03/19 [History Last Taken 03/25/20 23:00] levothyroxine 50 mcg tablet 50 mcg PO DAILY nutrition 09/03/19 [History Last Taken 08/17/21 09:00] multivitamin no.47-iron fum 27 mg-folate no.1 1 mg-dha 300 mg capsule (PNV-DHA) 1 cap PO DAILY 01/06/21 [History Last Taken 08/17/21 09:00] aspirin 81 mg capsule 81 mg PO DAILY COVID during 08/18/21 [History Last Taken 08/17/21 09:00] bupropion HCl 150 mg 24 hr tablet, extended release (Wellbutrin XL) 150 mg PO QAM depression 08/18/21 [History Last Taken 08/17/21 09:00] Allergy/AdvReac Type Severity Reaction Status Date / Time Sulfa (Sulfonamide Allergy Mild hives Verified 08/18/21 06:04 Antibiotics) Family History Mother Hypertension Hyperlipidemia TIA (transient ischemic attack) Father Hypertension Grandmother Uterine cancer, Onset Age: 60 Grandfather Cancer stomach cancer (paternal) Surgical History (Updated 08/18/21 @ 05:17 by Betty Alvarez) delivery delivered H/O rhinoplasty Hx of LASIK [place] teeth removed Social History household members: family housing: house number of children: 2 current occupational status: employed Smoking Status: Never smoker second hand exposure: No alcohol intake: current details: pre substance use type: does not use caffeine: Yes what type of physical activity do you participate in: walking seatbelt use: always do you feel safe at home: Yes additional social history: Jose- SSA Patient works in [employer] ([employer]) History 3 Elective abortions Hx Para 2 Spontaneous abortions Hx # Term Pregnancies Ectopic pregnancies Hx # Pregnancies Multiple births # of living children 2 Past Pregnancies Del. Date Name GA/Weeks Outcome Route Bth Weight Infant Gen Labor Lgth Anesthesia Del Locatn Provider FOB Unknown Rama 11/09/2014 40 live - full term 7lbs 1o z Female spinal [facility]. Carrington 03/26/20 Low 38 live - full term 7lbs 1oz Male 11 hours epidural [facility] GP Delivery Date: Last Updated by: Renetta Toribio MD NST Decels, spontaneous ROM, Pitocin decels Delivery Date: 03/26/20 Last Updated by: Seble Dodson Laceration: Midline, Perineal Extension/lac, 2nd degree; nuchal cord loose Visit Details Expected Delivery Route/Plan patient counseled regarding risks/benefits of trial of labor versus repeat . ACOG/uptodate education given to patient. [] % likelihood of success per calculator TOLAC consent form signed: [] Labor Preferences- CB/BF classes: no labor support person: Jose labor intervention preferences: [] pain management options preferred: epidural ok if needed cut cord/dad catch: cord : yes PP control planned: discussed-vasectomy completed discussed possible routes of delivery and associated risks: [] special requests: [] Plans Covid status: fully vaccinated Flu vaccine: vaccinated Tdap vaccine: given Rhogam: na LARC form signed: yes Problem list reviewed and updated with the most current plan of care details and appropriate orders placed. Relevant counseling for the gestational age provided. Continue routine care and follow up unless otherwise noted in visit notes/problem list details OB Flowsheet Initial Weight: 179 lb Date -?-?-?-?-?-?-?-?-?-?-?-?- EGA Weight BP Urine Prot -?-?-?-?-?-?-?-?-?-?-?-?- Glucose FHR FuHt Pres Dilation -?-?-?-?-?-?-?-?-?-?-?-?- Effaced St Visit Note 01/20/21 -?-?-?-?-?-?-?-?-?-?-?-?- 8w 6d 179 lb 6 oz (+6 oz) 120/70 -?-?-?-?-?-?-?-?-?-?-?-?- -?-?-?-?-?-?-?-?--?-?-?-?- JV- CRL consiste nt with LMP 02/17/21 -?-?-?-?-?-?-?-?-?-?-?-?- 12w 6d 179 lb 8 oz (+8 oz) 126/72 -?-?-?-?-?-?-?-?-?-?-?-?- 168 -?-?-?-?-?-?-?-?-?-?-?-?- JV- tsh was not collected. pt to go down now for blood draw. She is requesting to go back on wellbutrin starting 2nd trimester 03/16/21 -?-?-?-?-?-?-?-?-?-?-?-?- 16w 5d 177 lb (-2 lb) 112/70 -?-?-?-?-?-?-?-?-?-?-?-?- 150 -?-?-?-?-?-?-?--?-?-?-?-?- SM- no bang lacy, seeing chiropractor for pain 04/13/21 -?-?-?-?-?-?-?-?-?-?-?-?- 20w 5d 180 lb (+16 oz) 102/66 -?-?-?-?-?-?-?-?-?-?-?-?- 150 -?-?-?-?-?-?-?-?-?-?-?-?- SM- she has had a cough since tuesday, pink eye left all drainage and congestion, greenish. pressure in ears. she took a course of augmentin a few weeks ago. 05/11/21 -?-?-?-?-?-?-?-?-?-?-?-?- 24w 5d 183 lb (+4 lb) 118/72 Negative -?-?-?-?-?-?-?--?-?-?-?-?- Negative 145 -?-?-?-?-?-?-?-?-?-?-?-?- SM- no vb lof go od fm no regular ctx 06/02/21 -?-?-?-?-?-?-?-?-?-?-?-?- 27w 6d 187 lb 4 oz (+8 lb 4 oz) 110/62 Negative -?-?-?-?-?-?-?-?-?-?-?-?- Negative 141 -?-?-?-?-?-?-?-?-?-?-?-?- -No Vb, LOF. G ood FM. 28 wk labs, larc, tdap. 06/22/21 -?-?-?-?-?-?-?-?-?-?-?-?- 30w 5d 188 lb 4 oz (+9 lb 4 oz) 132/80 Trace -?-?-?-?-?-?-?-?-?-?-?-?- Negative 153 30 -?-?-?-?-?-?-?-?-?-?-?-?- MH-No Vb, LOF. G ood FM. Recent covid. Taking ASA. Fatigue is problematic. Growth US 32 wk. 07/10/21 -?-?-?-?-?-?--?-?-?-?-?-?- 33w 2d 191 lb 4 oz (+12 lb 4 oz) 120/68 Trace -?-?-?-?-?-?-?-?-?-?-?-?- Negative 140 33 -?-?-?-?-?-?-?-?-?-?-?-?- SM- no vb lof go od fm no regualr ctx 07/24/21 -?-?-?-?-?-?-?-?-?-?-?-?- 35w 2d 194 lb 2 oz (+15 lb 2 oz) 122/70 Negative -?-?-?-?-?-?-?-?-?-?-?-?- Negative 155 36 -?-?-?-?-?-?-?-?-?-?-?-?- JV- no lof, va g inal bleeding, or dec fm. no complaitns. needs to bring back tolac consent. growth scan next viist. still wants to . 07/31/21 -?-?-?-?-?-?-?-?-?-?-?-?- 36w 2d 196 lb (+17 lb) 110/72 Negative -?-?-?-?-?-?-?-?-?-?-?-?- Negative 162 36 Cephalic 1 -?-?-?-?-?-?-?-?-?-?-?-?- 60 -2 JV- GBS co llect. pt forgot to bring back consent. normal growth scan. 08/06/21 -?-?-?-?-?-?-?-?-?-?-?-?- 37w 1d 192 lb 8 oz (+13 lb 8 oz) 120/78 Negative -?-?-?-?-?-?-?-?-?-?-?-?- Negative 145 37 Cephalic 1 -?-?-?-?-?-?-?-?-?-?-?-?- 50 -1 JV-GBS is negative. aunt and uncle at home this week and patient will be attending this weekend. 08/14/21 -?-?-?-?-?-?-?--?-?-?-?-?- 38w 2d 198 lb (+19 lb) 134/70 Negative -?-?-?-?-?-?-?-?-?-?-?-?- Negative 140 38 Cephalic 1 -?-?-?-?-?-?-?-?-?-?-?-?- 60 -1 JV- pt hav ing episodes of decreased movement more than usual. NST ordered. 08/18/21 -?-?-?-?-?-?-?-?-?-?-?-?- 38w 6d 195 lb 3.2 oz (+16 lb 3.2 oz) 152/101 139/87 -?-?-?-?-?-?-?-?-?-?-?-?- -?-?-?-?-?-?-?-?-?-?-?-?- NST FHR Rate Baby A Baseline: 140 Variability:: Moderate Accelerations:: 15 x 15 Decelerations:: None NST Reactive:: Yes FHR Category:: Category I Uterine Activity:: q3-5 ROS Constitutional Constitutional: Reports systems reviewed and no addt'l complaints, except as documented ENT HEENT: Reports systems reviewed and no addt'l complaints, except as documented Cardiovascular Cardiovascular: Reports systems reviewed and no addt'l complaints, except as documented Respiratory/Chest Respiratory/Chest: Reports systems reviewed and no addt'l complaints, except as documented Gastrointestinal Gastrointestinal: Reports systems reviewed and no addt'l complaints, except as documented and nausea; Denies abdominal pain Genitourinary Genitourinary: Reports systems reviewed and no addt'l complaints, except as documented, contractions Details: present and frequency (regular ) and movement Details: present Musculoskeletal Musculoskeletal: Reports systems reviewed and no addt'l complaints, except as documented Integumentary Integumentary: Reports as per HPI Neurologic Neurologic: Reports systems reviewed and no addt'l complaints, except as documented Endocrine Endocrinology: Reports systems reviewed and no addt'l complaints, except as documented Vital Signs Vital Signs Vital Signs: 08/18/21 04:47 08/18/21 04:47 08/18/21 04:59 Pulse Rate 85 Blood Pressure 152/101 H BP Systolic 152 BP Diastolic 101 Pulse Ox 99 08/18/21 04:59 08/18/21 06:01 08/18/21 06:01 Pulse Rate 74 69 Blood Pressure 139/87 H BP Systolic 139 BP Diastolic 87 Pulse Ox Weight Weight: 195 lb 3.2 oz Body Mass Index (BMI) 35.6 Physical Exam Const alert, oriented x3 and healthy appearing Constitutional Narrative: uncomfortable with contractions HEENT normocephalic and moist oral mucous membranes Head and Scalp: atraumatic Neck full ROM, no lymphadenopathy, supple and thyroid normal General: trachea midline Thyroid: thyroid normal Lymph Lymphatic: no lymphadenopathy noted Chest inspection of chest normal Resp normal respiratory effort Cardio regular rate GI normal to inspection, nondistended, normoactive bowel sounds, soft to palpation and non-tender Inspection: gravid external exam normal Bimanual Exam - Vag & Uterus: uterus non-tender Manual OB Exam: estimated gestational size appropriate, presentation cephalic, dilated, effaced and station Extremity normal to inspection General Extremity: Negative for edema Skin no rashes or lesions noted Neuro deep tendon reflexes 2+ bilaterally Motor Exam: strength 5/5 throughout and clonus absent Psych mental status grossly normal Labs Labs Labs: Blood Type B POSITIVE Antibody Screen NEGATIVE Hct 35.1 % (37-47) L Hgb 11.5 g/dL (12.0-15.0) L Pap Smear Negative Obstetrics US Syphilis Total Ab Non-reactive Rubella IgG Antibody Reactive (Nonreactive) Hep Bs Antigen Non-Reactive (Nonreactive) Chlamydia DNA (AAMIR) Negative (Negative) Neisseria gonorrhoeae DNA (AAMIR) Negative (Negative) HIV 1&2 Antibody Non-Reactive (Nonreactive) Glucose 1 Hr 50 gm 120 mg/dL (70-140) Rhogam given: No Assessment & Plan (1) History of delivery: COMMENT: previous cs for NRFHTs. successful 03/2020 (2) Hypothyroid: COMMENT: Synthroid 50mcg- check labs q trimester- last checked 10/2020 (3) : QUALIFIERS: Weeks of gestation: 38 weeks Qualified Code(s): Z3A.38 - 38 weeks gestation of COMMENT: anatomy nl, NIPT low risk, Carrier neg . afp declined. GBS neg (4) Supervision of other normal : COMMENT: PRR VIDYA: 08/26/21 BOY PC: Low Ontiveros Spouse: Jose (5) Short interval between pregnancies affecting , antepartum: COMMENT: 03/2020 (6) Depression affecting : COMMENT: Wellbutrin (7) Obesity affecting : (8) AMA (advanced maternal age) multigravida 35+: COMMENT: nl NIPT growth us at 36 weeks (9) Lab test positive for detection of COVID-19 virus: COMMENT: 32 and 36 wk growth US, 81mg asa, 32 wk growth nl (10) Nuchal fold thickening on ultrasound: COMMENT: 04/01 anatomy US showed 7.9mm, normal echo (11) Active labor at term: PLAN: Plan Patient presents IAL, plan expectant management for , pitocin/AROM PRN if needed. Pain management: plans epidural. GBS neg. Management of any complications: none I have reviewed the [facility] and made any clinically relevant updates.
[2021-08-18] MEDS: Lactated Ringers 1,000 ML 200 ML IV (06:21)
[2021-08-18 06:24] LABS: ALB/GLOB Ratio 0.6 RATIO (0.9-2.4); AST(SGOT) 29 U/L (15-37); Alanine Aminotransfer ALT/SGPT 18 U/L (13-56); Albumin, Serum 2.5 g/dL (3.2-5.0); Alkaline Phosphatase 138 U/L (45-117); Anion Gap 7 (5-15); BUN 10 mg/dL (7-18); BUN/Creat Ratio 13.1 RATIO (10-20); Calcium,Total 9.5 mg/dL (8.5-10.1); Chloride 108 mmol/L (98-107); Creatinine, Serum 0.76 mg/dL (0.55-1.02); EST Glomerular Filtration Rate 91 mL/min (>60); Est Glom Filt Rate - Afr Amer 111 mL/min (>60); Estimated Creatinine Clearance 81.71 ml/min; Globulin 4.2 g/dL (2.2-4.2); Glucose 101 mg/dL (74-106); Potassium 4.2 mmol/L (3.5-5.1); Protein, Total 6.7 g/dL (6.4-8.2); Sodium Level 138 mmol/L (136-145)
[2021-08-18] MEDS: fentaNYL-bupivacaine (epidural) 100 ML BAG EPIDURAL (06:45)
[2021-08-18] MEDS: Oxytocin 30 units/NS 500 ml 30 UNITS/500 ML IV.SOLN 334 UNITS IV (07:25)
--- NOTE | 2021-08-18 07:48 | OP.PCM_ITS ---
Maternal Data Information VIDYA Calculator Estimated Delivery Date Method Current Current Estimate 08/26/21 LMP (Certain) 38w 6d Other Estimates 08/28/21 Ultrasound #1 38w 4d Vaginal Delivery Operative Information Date of Procedure: 08/18/21 Pre-Operative Diagnosis: IAL Post-Operative Diagnosis: same Surgery / Procedure Performed: Type of Anesthesia: Epidural and Local with 1% Lidocaine Special Medications: none Estimated Blood Loss: 100 Fluids Replaced: crystalloid Findings Description of Procedure: Patient began pushing and delivered the head in the EFE presentation. The head was delivered atraumatically . The anterior and posterior shoulders delivered without complication followed by the rest of the infant and the was placed on the maternal abdomen. Delayed cord clamping was employed for approximately 60 seconds. Cord was clamped and cut and gentle traction was applied to the cord and the placenta delivered spontaneously immediately following it was noted to be intact with three-vessel cord. The perineum and vagina were inspected and noted to have a second degree laceration repaired in the usual fashion with 3-0 rapide. EBL was 100 cc. Patient and tolerated delivery well. Presentation: EFE Amniotic Membrane Rupture Type: Artificial Amniotic Fluid Description: Clear Placental Delivery Description: Spontaneous Placenta Disposition: [facility] Cord Vessel Description: 3 Vessels Cord Entanglement: None Delayed Cord Clamping: Yes Post Vaginal Delivery Medications Given After Delivery: IV Pitocin Episiotomy Description: None Laceration: Perineal Extension/lac and 2nd degree Complication Complications: None Procedures Urinary/Genital [id number]: [id number] delivery [facility]
--- NOTE | 2021-08-18 07:49 | DCINST_ITS ---
Discharge Instructions Diet Discharge Diet: No restrictions Activity Discharge Activity: Return to Normal Activity, May Drive, May Shower and May Take a Tub Bath (in 4 weeks) May resume sexual activity in: 6-8 weeks (after seen by OB provider) Weight Bearing Status: Full weight bearing Lifting Restrictions: none Dressing / Incision Call your doctor if you observe: Fever of 101 or Higher, Inability to urinate, Using more than 1 pad per hour (for more than 2 hours in a row or more), Shortness of breath, Dizziness, Chest pain and - (headache not controlled with tylenol, change in vision) Follow Up Care When: in 6 weeks for visit, call the office to make the appointment. If you had elevated blood pressures call the office to be seen within 1 week. Test Results: Test results from this visit will be discussed in further detail at your follow- up appointment, if applicable. Discharge Plan Admission Admit Date/Time: 08/18/21 04:53 Attending Provider: Renetta Toribio Primary Care Provider: DEJUAN GONZALEZ Discharge Orders/Prescriptions Prescriptions: No Action fluticasone propionate 50 mcg/actuation spray,suspension 2 spray INTRANASAL DAILY Rx Instructions: administer into each nostril levothyroxine 50 mcg tablet 50 mcg PO DAILY PNV-DHA 27 mg iron-1 mg -300 mg capsule 1 cap PO DAILY bupropion HCl [Wellbutrin XL] 150 mg tablet extended release 24 hr 150 mg PO QAM aspirin 81 mg Capsule 81 mg PO DAILY Referrals / Follow Up: DEJUAN GONZALEZ [Other] Disposition Disposition (needs filled in before D/C Order can be placed): Home, Self Care
[2021-08-18] MEDS: buPROPion (XL) 150 MG TABLET.XL PO (09:10)
[2021-08-18] MEDS: Levothyroxine 50 MCG Tablet PO (09:10)
[2021-08-18] MEDS: Naproxen 500 MG Tablet PO ×2 (09:30→18:00)
[2021-08-18] MEDS: Acetaminophen 500 MG Tablet 1000 MG PO ×2 (13:51→20:53)
--- NOTE | 2021-08-18 15:30 | NURSING ---
This RN in room to perform fundal check and vitals. Patient's abdomen firm and distended. Bleeding WNL. Patient reports pain when abdomen is pushed. Assisted patient in getting to the bathroom to void. 800 mL out. Fundus then felt at the umbilicus, but abdomen still somewhat firm. Dr. Peres notified. Order to place freeman catheter and monitor output.
[2021-08-19 04:12] VITALS: BP 121/75; PULSE 75; RESP 17; TEMP 36.6; O2SAT 100
[2021-08-19 04:14] VITALS: BP 121/75; PULSE 76
[2021-08-19] MEDS: Levothyroxine 50 MCG Tablet PO (06:20)
[2021-08-19] MEDS: buPROPion (XL) 150 MG TABLET.XL PO (06:20)
--- NOTE | 2021-08-19 08:12 | PCM.PN.OB ---
Subjective Subjective Patient doing well without complaints. Tolerating PO. Ambulating and voiding without difficulty. Feeding well. Denies chest pain, shortness of breath, calf pain/swelling, fevers, chills, lightheadedness. Objective Data Objective Data Vital Signs: Vital Signs Temp Pulse Resp BP Pulse Ox O2 Del Method 97.8 F 76 17 121/75 H 100 Room Air 08/19/21 04:12 08/19/21 04:14 08/19/21 04:12 08/19/21 04:14 08/19/21 04:12 08/19/21 04:12 Oxygen Delivery Method Room Air Weight: 195 lb 3.2 oz Body Mass Index (BMI) 35.6 Intake & Output: Intake and Output for Last 24 Hours 08/17/21 08/18/21 08/19/21 23:59 23:59 23:59 Intake Total 1213.33 / 1213.33 Output Total 700 / 700 Balance 513.33 / 513.33 Lab / Micro Data Result Diagrams: 08/18/21 05:30 08/18/21 05:45 Physical Exam Const alert and oriented x3 HEENT normocephalic Eyes PERRL Neck full ROM Resp normal respiratory effort GI soft to palpation GI Narrative: FF below U Assessment & Plan (1) Vaginal after : COMMENT: IAL 39 SM boy [place] (2) Depression affecting : COMMENT: Wellbutrin; stable PLAN: Plan s/p PPD # 1 1. routine post delivery care 2. breast feeding- support given 3. rh positive 4. rubella immune
[2021-08-19 08:22] VITALS: BP 114/66; PULSE 72
[2021-08-19 08:25] VITALS: BP 114/66; PULSE 72; RESP 16; TEMP 36
[2021-08-19] MEDS: Naproxen 500 MG Tablet PO (08:34)
[2021-08-19] MEDS: Senna/Docusate Sodium 1 Tablet PO (08:34)
[2021-08-19 13:10] VITALS: BP 125/77; PULSE 67; RESP 16; TEMP 36.5
[2021-08-19 13:11] VITALS: BP 125/77; PULSE 67
== END 2021-08-19 14:10 | disposition home or self-care (01) | DRG 807 ==
LOC: WPOUT 04:56 → WP 04:56
PROVIDERS: Admitting Provider Obstetrics & Gynecology; Visit Provider Obstetrics & Gynecology
DX: O34.219 Maternal care for unspecified type scar from previous cesarean delivery (principal); Z37.0 Single live birth; O26.23 Pregnancy care for patient with recurrent pregnancy loss, third trimester; E03.9 Hypothyroidism, unspecified; O99.284 Endocrine, nutritional and metabolic diseases complicating childbirth; O70.1 Second degree perineal laceration during delivery; Z79.82 Long term (current) use of aspirin; Z3A.38 38 weeks gestation of pregnancy; Z86.16 Personal history of COVID-19
CPT/HCPCS: 59025; 59050; 80053; 84112; 85025; 86850; 86900; 86901; 99218; J7120; G0378

== ENCOUNTER → 2022-10-04 | Outpatient (CLI) | payer BC, SELFPAY ==
[2022-10-04 17:14] LABS: Prolactin 24.1 ng/mL
[2022-10-08 04:07] LABS: 17-Hydroxyprogesterone 178 ng/dL (.)
[2022-10-14 01:07] LABS: Testosterone Free 0.8 pg/mL (0.0-4.2)
== END | disposition home or self-care (01) ==
PROVIDERS: Referring Provider Obstetrics & Gynecology; Visit Provider Obstetrics & Gynecology
DX: N91.4 Secondary oligomenorrhea (principal); E03.9 Hypothyroidism, unspecified
CPT/HCPCS: 36415; 82627; 83498; 84146; 84402; 82626

== ENCOUNTER → 2024-10-08 | Outpatient (CLI) | payer BC, SELFPAY ==
[2024-10-10 12:08] LABS: HPV APTIMA, High Risk Negative (Negative)
== END | disposition home or self-care (01) ==
LOC: LABSPEC 12:11
PROVIDERS: Referring Provider Obstetrics & Gynecology; Visit Provider Obstetrics & Gynecology
DX: Z12.4 Encounter for screening for malignant neoplasm of cervix (principal)
CPT/HCPCS: 87624; 88175; G0145

== ENCOUNTER → 2024-11-07 | Outpatient (CLI) | payer BC, SELFPAY ==
--- OUTSIDE RECORDS SUMMARY | 2024-11-07 07:37 | XMS RPT_ITS | CCD ---
Author Organization [facility] Care Team Providers Care Pantograph I Engraver Name Role Phone GIBRAN KING Unavailable Unavailable KEATONMADELYN SUTTON C Unavailable Unavailable KEATONMADELYN SUTTON C Unavailable Unavailable MADELYN PUGH C Unavailable Unavailable CIARA VICTORIA Unavailable Unavailable PROVIDER, UNKNOWN Unavailable Unavailable Damon Ponce Attending Unavailable Gibran King Primary Care Unavailable Javid Mon Attending Unavailable Gbiran King Primary Care Unavailable Care Physician, No Primary Referring Provider Un available Dr. Maureen Hartman Attending Provider [phone] DEJUAN GONZALEZ Primary Care Provider UnavailDr. Renetta Nixon Attending Provider [phone] Vianney AGRICULTURAL SPECIALIST, CLIFF Vasquez Attending Provider [phone] DEJUAN GONZALEZ Referring Provider Unavailable Dr. Renetta Toribio Attending Provider [phone] DEJUAN GONZALEZ Primary Care Provider UnavailDr. Maureen Velasquez Attending Provider [phone] CARLOS TORIBIO, DEJUAN Primary Care Physician [phone] Dr. Renetta Toribio Attending Provider [phone] Unavailable Primary Care Provider Unavailabl e RODO VALERO DO Attending Unavailable [employer] FOREST PATHOLOGY ASSOCIATE PROFESSOR-ROTATING FIELD ASSEMBLER, DEJUAN Primary Care Unavaila ble [employer] FOREST PATHOLOGY ASSOCIATE PROFESSOR-ROTATING FIELD ASSEMBLER, DEJUAN Attending Unavaila ble [employer] FOREST PATHOLOGY ASSOCIATE PROFESSOR-ROTATING FIELD ASSEMBLER, DEJUAN Primary Care Unavaila ble [employer]OSLER FOREST PATHOLOGY ASSOCIATE PROFESSOR-ROTATING FIELD ASSEMBLER, DEJUAN Attending Unavaila ble CARLOS FOREST PATHOLOGY ASSOCIATE PROFESSOR-ROTATING FIELD ASSEMBLER, DEJUAN Primary Care Unavaila ble RODO VALERO DO Attending Unavailable ALEXANDERLER FOREST PATHOLOGY ASSOCIATE PROFESSOR-ROTATING FIELD ASSEMBLER, DEJUAN Primary Care Unavaila RODO Kam DO Attending Unavailable [employer]EST PATHOLOGY ASSOCIATE PROFESSOR-ROTATING FIELD ASSEMBLER, DEJUAN Primary Care Unavaila ble RODO VALERO DO Attending Unavailable [employer] FOREST PATHOLOGY ASSOCIATE PROFESSOR-ROTATING FIELD ASSEMBLER, DEJUAN Primary Care Unavaila ble RODO VALERO DO Attending Unavailable [employer] FOREST PATHOLOGY ASSOCIATE PROFESSOR-ROTATING FIELD ASSEMBLER, DEJUAN Primary Care Unavaila JOANA Urena MD Consulting Unavailable [employer] FOREST PATHOLOGY ASSOCIATE PROFESSOR-ROTATING FIELD ASSEMBLER, DEJUAN Attending Unavaila ble [employer] FOREST PATHOLOGY ASSOCIATE PROFESSOR-ROTATING FIELD ASSEMBLER, DEJUAN Primary Care Unavaila ble [employer]LER FOREST PATHOLOGY ASSOCIATE PROFESSOR-ROTATING FIELD ASSEMBLER, DEJUAN Primary Care Unavaila ble GATO FOREST PATHOLOGY ASSOCIATE PROFESSOR-CNM, LAKESHIA Lynn Attending Stephani vailable [employer] PATHOLOGY ASSOCIATE PROFESSOR-ROTATING FIELD ASSEMBLER, DEJUAN Primary Care Unavaila ble [employer] FOREST PATHOLOGY ASSOCIATE PROFESSOR-ROTATING FIELD ASSEMBLER, DEJUAN Attending Unavaila brando Toribio MD, Dr. Jackson Attending Provider Dr. Renetta Toribio MD Referring Provider [phone] Renetta Toribio Attending Unavailable Renetta Toribio Referring Unavailable Renetta Toribio Attending Unavailable Allergies Allergy Classification Reported Allergen(s) Allergy Type Date of Onset Reaction(s) Facility (1 source) Sulfonamides (Antibiotic) [facility] Sulfonamides (Antibiotic); Translations: [Sulfa (Sulfonamide Antibiotics)] Allergy to substance 2 [facility] (1 source) Sulfamethoxazole ; Translations: [sulfamethoxazol e] Drug Allergy [facility] (2 sources) Sulfonamides (Antibiotic); Translations: [sulfa drugs] Drug allergy [place] (disorder) [facility] Medications Current Medications Medication Drug Class(es) Dates Sig (Normalized) Sig (Original) acetaminophen 325 mg / HYDROcodone bitartrate 5 mg oral tablet (1 source) Opioid Agonist Start: 11-05-2022 End: 11-07-2022 take 1 tablet by mouth every four hours as needed for pain [place]ondo 325- 5 mg oral tablet Dose = 1 tab(s), Oral, q4h, PRN as needed for pain, X 2 day(s), # 5 tab(s), 0 Refill(s), Pharmacy: [id number], Post-op pain, 157.5, cm, 11/05/22 8:52:00 EDT, Height, 78.1, kg, 11/05/22 8:52:00 EDT, Dosing Weight Start Date: 11/05/22 Stop Date: 11/07/22 Status: Ordered bacitracin 0.5 unt/mg / polymyxin b 10 unt/mg ophthalmic ointment (3 sources) Polymyxin-class Antibacterial Start: 04-13-2021 Bacitracin-Polym yxin B Active 1 APPLIC OPHTHALMIC 6 times per day 3.5 April 13, 2021 1:00am administer while awake 24 hr buPROPion hydrochloride 300 mg extended release oral tablet (16 sources) Aminoketone Start: 08-03-2022 take 1 tablet by mouth every hour, then take 1 tablet by mouth once daily Wellbutrin XL 300 mg/24 hours oral tablet, extended release Dose : 300 mg = 1 tab(s), Oral, qDay, # 30 tab(s), 0 Refill(s) Start Date: 08/03/22 Status: Ordered Start: 11-03-2021 End: 10-04-2022 take 1 tablet by mouth once daily in the morning Bupropion Hcl 300 mg tablet extended release 24 hr Discontinued 300 mg PO EVERY MORNING 12 02November 03, 2021 11:25am October 04, 2022 3:21pm depression Start: 11-03-2021 End: 11-03-2021 Bupropion Hcl (Wellbutrin Xl ) 150 mg tablet extended release 24 hr Discontinued 300 mg PO EVERY MORNING November 03, 2021 11:25am November 03, 2021 11:25am depression Start: 02-17-2021 End: 11-03-2021 take 1 tablet by mouth once daily in the morning Bupropion Hcl (Wellbutrin Xl) 150 mg tablet extended release 24 hr Discontinued 150 mg PO EVERY MORNING August 18, 2021 5:19am November 03, 2021 11:25am depression levothyroxine (14 sources) l-Thyroxine Start: 10-08-2024 take 1 capsule by mouth once daily Levothyroxine 88 mcg capsule Active 88 ug PO daily October 08, 2024 12:00am Start: 10-04-2022 End: 10-08-2024 take 2 tablets by mouth once daily Levothyroxine 50 mcg tablet Discontinued 100 ug PO DAILY October 04, 2022 3:21pm October 08, 2024 11:15am nutrition Start: 10-04-2022 take 100 ug by mouth once ozzie y Levothyroxine Active 100 MCG PO DAILY October 04, 2022 3:21pm Start: 07-22-2022 levothyroxine 100 mcg (0.1 mg) oral tablet Dose : 100 mcg = 1 tab(s), Oral, qAM, # 30 tab(s), 2 Refill(s), Pharmacy: [id number], 159, cm, 07/22/22 10:23:00 EDT, Height Start Date: 07/22/22 Status: Ordered Start: 09-03-2019 End: 10-04-2022 take 1 tablet by mouth once daily Levothyroxine 50 mcg tablet Discontinued 50 ug PO DAILY September 03, 2019 12:00am October 04, 2022 3:21pm nutrition liothyronine sodium 0.05 mg oral tablet (2 sources) l-Triiodothyronine Start: 10-08-2024 take 1 tablet by mouth once daily Liothyronine 50 mcg tablet Active 100 ug PO daily October 08, 2024 12:00am montelukast 10 mg oral tablet (3 sources) Leukotriene Receptor Antagonist Start: 01-06-2021 take 1 tablet by mouth once daily Montelukast (Singulair) 10 mg tablet Active 10 MG PO DAILY January 06, 2021 1:00am Multiple Vitamins oral capsule (3 sources) Start: 07-24-2018 take 1 capsule by mouth once daily Multiple Vitamins oral capsule Dose = 1 cap(s), Oral, qDay, 0 Refill(s) Start Date: 07/24/18 Status: Ordered Start: 07-24-2018 take 1 capsule by [facility] once daily Multiple Vitamins oral capsule Dose = 1 cap(s), Oral, Daily, 0 Refill(s) Start Date: 07/24/18 Status: Ordered Multivit 00-Rytu-Xyhfso 1-Dh a (Pnv-Dha) 27 mg iron-1 mg -300 mg capsule (6 sources) Start: 01-06-2021 Multivit 47-Ir on-Folate 1-Dha (Pnv-Dha) 27 mg iron-1 mg -300 mg capsule Active CAP PO January 06, 2021 11:23am Start: 01-06-2021 End: 10-08-2024 Multivit 00-Xjeo-Tfbvso 1-Dh a (Pnv-Dha) 27 mg iron-1 mg -300 mg capsule Discontinued 1 NMA PO DAILY January 06, 2021 1:00am October 08, 2024 11:15am Start: 01-06-2021 take 1 capsule by mo uth once daily Multivit 20-Eyed-Itblzc 1-Dha (Pnv-Dha) 27 mg iron-1 mg -300 mg capsule Active 1 CAP PO DAILY January 06, 2021 1:00am Start: 01-06-2021 Multivit 47-Ir on-Folate 1-Dha (Pnv-Dha) 27 mg iron-1 mg -300 mg capsule Active CAP PO January 06, 2021 1:00am progesterone 100 mg oral capsule (2 sources) Progesterone Start: 10-08-2024 take 1 capsule by mouth once daily in the morning Progesterone Micronized 100 mg capsule Active 100 mg PO EVERY MORNING October 08, 2024 12:00am off 7 days; repeat cycle Completed/Discontinued Medications Medication Drug Class(es) Dates Sig (Normalized) Sig (Original) amoxicillin 500 mg / clavulanate 125 mg oral tablet (18 sources) Penicillin-class Antibacterial Start: 04-13-2021 End: 04-20-2021 Amoxicillin-Pot Clavulanate (Augmentin) 500-125 mg tablet Discontinued 1 {tbl} PO Q8H 21 7 0 April 13, 2021 1:00am April 19, 2021 1:00am April 20, 2021 1:03am Start: 03-10-2020 End: 03-24-2020 Amoxicillin-Pot Clavulanate (Augmentin) 500-125 mg tablet Discontinued 1 {tbl} PO TWICE A DAY March 10, 2020 1:00am March 24, 2020 11:26am Start: 10-01-2019 End: 10-29-2019 Amoxicillin-Pot Clavulanate (Augmentin) 875-125 mg tablet Discontinued 1 {tbl} PO TWICE A DAY October 01, 2019 12:00am October 29, 2019 3:27pm aspirin 81 mg oral tablet (3 sources) Platelet Aggregation Inhibitor, Nonsteroidal Anti-inflammatory Drug Start: 08-18-2021 End: 10-02-2021 take 1 capsule by mouth once daily Aspirin 81 mg Capsule Discontinued 81 mg PO DAILY August 18, 2021 12:00am October 02, 2021 3:06pm COVID during fluticasone propionate 0.05 mg/actuat metered dose nasal spray (7 sources) Corticosteroid Start: 09-03-2019 End: 10-02-2021 Fluticasone Propionate 50 mcg/actuation spray,suspension Discontinued 2 NMA INTRANASAL DAILY September 03, 2019 12:00am October 02, 2021 3:06pm nutrition administer into each nostril Start: 09-03-2019 End: 10-02-2021 take 1 spray(s) nasal route once daily Fluticasone Propionate Discontinued 2 SPRAY INTRANASAL DAILY September 03, 2019 12:00am October 02, 2021 3:06pm administer into each nostril Start: 07-24-2018 take 1 dose nasal ro [place] twice daily fluticasone 50 mcg/inh NASAL spray Dose = 2 spray(s), Nostril, each, BID, 0 Refill(s) Start Date: 07/24/18 Status: Ordered levocetirizine dihydrochloride 5 mg oral tablet (6 sources) Histamine-1 Receptor Antagonist Start: 09-03-2019 End: 01-06-2021 take 1 tablet by mouth once daily Levocetirizine (Xyzal) 5 mg tablet Discontinued 5 mg PO DAILY September 03, 2019 12:00am January 06, 2021 11:24am Check with primary doctor naproxen 250 mg oral tablet (6 sources) Nonsteroidal Anti-inflammatory Drug Start: 03-27-2020 End: 05-07-2020 take 250-500 mg by mouth every eight hours as needed for pain Naproxen 250 MG tablet Discontinued 250 - 500 mg PO EVERY 8 HOURS NEEDED as needed for MILD PAIN 30 March 27, 2020 1:00am May 07, 2020 10:03am Pnv #42-Ebxf-Zmhli Acid-Omega3 30 mg iron-10 mg iron-1 mg capsule (1 source) Start: 09-03-2019 End: 05-07-2020 Pnv #05-Mclm-Jwcur Acid-Omega3 30 mg iron-10 mg iron-1 mg capsule Discontinued 1 NMA PO DAILY September 03, 2019 12:00am May 07, 2020 10:04am Check with primary doctor Pnv 39-Jhkn-Dvlcd Oilv-Gmdna-3 30 mg iron-10 mg iron-1 mg capsule (1 source) Start: 09-03-2019 End: 05-07-2020 Pnv 01-Fobq-Nbpjo Awer-Zejoz-6 30 mg iron-10 mg iron-1 mg capsule Discontinued 1 NMA PO DAILY September 03, 2019 12:00am May 07, 2020 10:04am Check with primary doctor vitamin#30 30 mg iron-10 mg iron-folic acid 1 mg-omg3 capsule (4 sources) Start: 09-03-2019 End: 05-07-2020 take 1 capsule by mouth once daily vitamin#30 30 mg iron-10 mg iron-folic acid 1 mg-omg3 capsule Discontinued 1 CAP PO DAILY September 03, 2019 11:44am May 07, 2020 10:04am Start: 09-03-2019 End: 05-07-2020 take 1 capsule by mouth once daily vitamin#30 30 mg iron-10 mg iron-folic acid 1 mg-omg3 capsule Discontinued 1 CAP PO DAILY September 03, 2019 12:00am May 07, 2020 10:04am Problems Active Problems Problem Classification Problem Date Documented Date Episodic/Chronic Abdominal hernia (3 sources) Umbilical hernia 07-22-2022 Episodic Cardiac dysrhythmias (3 sources) Intermittent palpitations 02-25-2019 Episod ic Deficiency and other anemia (1 source) Iron deficiency anemia 07-21-2020 Episodic Disorders of lipid metabolism (3 sources) Hypertriglyceridemia 01-21-2020 Chronic Genitourinary symptoms and ill-defined conditions (5 sources) Genuine stress incontinence; Translations: [Stress incontinence (female) (male)] Onset: 10-09-19 25 10-08-2024 Chronic Comment on above: pfpt recommended Menstrual disorders (7 sources) Secondary oligomenorrhea; Translations: [Secondary oligomenorrhea] Onset: 10-09-1910-04-2022 Chronic Comment on above: sees myobgyn, on bio identical progesterone, discussed slynd or prometrium. Mood disorders (3 sources) Depressive disorder 11-03-2020 Chronic Mycoses (3 sources) Onychomycosis 11-03-2020 Episodic Nutritional deficiencies (1 source) Vitamin D deficiency 02-25-2019 Chronic Other and unspecified benign neoplasm (3 sources) Lipoma (clinical) 07-22-2022 Episodic Other complications of (6 sources) Anemia of ; Translations: [Anemia complicating , unspecified trimester] 01-06-2021 Chronic Comment on above: Start iron Other complications of (6 sources) Maternal obesity complicating , childbirth and the puerperium, antepartum; Translations: [Obesity complicating , unspecified trimester] 08-18-2021 Chronic Other complications of (19 sources) Obesity complicating , unspecified trimester; Translations: [Obesity complicating , childbirth, or the puerperium, unspecified as to episode of care or not applicable] Chronic Other complications of (6 sources) Multigravida of advanced maternal age; Translations: [Supervision of elderly multigravida, unspecified trimester] 08-18-2021 Episodic Comment on above: nl NIPT growth us at 36 weeks Other complications of (6 sources) High risk ; Translations: [Supervision of high risk , unspecified, unspecified trimester] 01-06-2021 Episodic Comment on above: PRR VIDYA 04/06/20 Jesus CARTAGENA Rama Jose Other complications of (6 sources) Finding of pattern of ; Translations: [Supervision of other high risk pregnancies, unspecified trimester] 08-18-2021 Episodic Comment on above: 03/2020 Other complications of (6 sources) ultrasound scan abnormal; Translations: [Abnormal ultrasonic finding on screening of mother] 08-18-2021 Episodic Comment on above: 04/01 anatomy US show ed 7.9mm, normal echo Other complications of (6 sources) Depressive disorder in mother complicating ; Translations: [Other mental disorders complicating , unspecified trimester] 08-19-2021 Episodic Comment on above: Wellbutrin; stable Other complications of (19 sources) Other mental disorders complicating , unspecified trimester; Translations: [Mental disorders of mother, unspecified as to episode of care or not applicable] Episodic Other complications of (19 sources) Supervision of other high risk pregnancies, unspecified trimester; Translations: [Supervision of other high-risk ] Episodic Other complications of (14 sources) Supervision of elderly multigravida, unspecified trimester; Translations: [Elderly multigravida, unspecified as to episode of care or not applicable] Episodic Other complications of (14 sources) Abnormal ultrasonic finding on screening of mother; Translations: [Abnormal finding on screening] Episodic Other ear and sense organ disorders (2 sources) Tinnitus 10-22-2022 Episodic Other gastrointestinal disorders (1 source) Irritable bowel syndrome 07-21-2020 Chronic Other nervous system disorders (1 source) Postoperative pain ; Translations: [Other acute postprocedural pain] Onset: 11-06-19 Episodic Other nutritional; endocrine; and metabolic disorders (3 sources) Body mass index 30+ - obesity 07-22-2022 Chronic Other nutritional; endocrine; and metabolic disorders (3 sources) Obese class I 07-22-2022 Chronic Other and delivery including normal (20 sources) Supervision of other normal ; Translations: [] Episodic Comment on above: PRR VIDYA: 2 BOY PC: Low Ontiveros Spouse: Jose NIPT low risk, la er, and ntd screening planned. carrier neg. NL anatomy anatomy nl, NIPT low risk, Carrier neg . afp declined. GBS neg Other screening for suspected conditions (not mental disorders or infectious disease) (1 source) Encounter for screening for malignant neoplasm of cervix; Translations: [Encounter for screening for malignant neoplasm of cervix] Onset: 10-13-19 Episodic Other upper respiratory disease (2 sources) Seasonal allergy 10-22-2022 Chronic Other upper respiratory disease (2 sources) Congestion of nasal sinus 10-22-2022 Episod ic Polyhydramnios and other problems of amniotic cavity (2 sources) Spontaneous rupture of membranes 01-06-2021 Episodic Previous (3 sources) Vaginal delivery following previous section; Translations: [Maternal care for unspecified type scar from previous delivery] 08-18-2021 Episodic Comment on above: IAL 39 SM boy A rthur Residual codes; unclassified (12 sources) History of vaccination; Translations: [Personal history of other drug therapy] 03-16-2021 Episodic Comment on above: Moderna 02/2020; 202001/14/20 Residual codes; unclassified (6 sources) Gestation period, 35 weeks; Translations: [35 weeks gestation of ] 01-06-2021 Episodic Comment on above: electronic covid perry t ordered 03/03/20 (scheduled for 03/31/20 at 1330), 03/24 US nl Residual codes; unclassified (14 sources) History of uterine scar from previous surgery; Translations: [Other postprocedural status] Episodic Residual codes; unclassified (1 source) Personal history of other drug therapy; Translations: [Personal history of other drug therapy] Episodic Thyroid disorders (20 sources) Hypothyroidism; Translations: [Hypothyroidism, unspecified] Onset: 09-11-19 23 Chronic Comment on above: Synthroid 50mcg- bob ck labs q trimester- last checked 10/2020 Unclassified (1 source) Unknown / UNK(Unknown) Onset: 12-16-19 18 Unclassified (2 sources) COUGH,SORE THROAT,CONGESTION,LOW FEVER Onset: 05-18-19 19 Unclassified (9 sources) Patient encounter status 07-21-2020 Viral infection (14 sources) COVID-19; Translations: [Severe acute respiratory syndrome coronavirus 2 (SARS-CoV-2) detected] Episodic Comment on above: 32 and 36 wk growth US, 81mg asa, 32 wk growth nl Past or Other Problems Problem Classification Problem Date Documented Da te Episodic/Chronic Unclassified (1 source) E03.9 E55.9 Onset: 12-15-2017 Unclassified (4 sources) Spontaneous rupture of membranes; Translations: [Spontaneous rupture of amniotic membranes] 01-06-2021 Unclassified (1 source) Normal labor; Translations: [Active labor at term] 08-18-2021 Results Test Name Value Interpretation Reference Range Facility PAP IG HPV APTIMA 16/18,45on 10-10-2024 ADEQ Comment Normal . [facility] Comment on above: Order Comment: Speci marcio Comment: [id number] Specimen Comment: No. of containers..01 ThinPrep Vial Result Comment: Sati sfactory for evaluation. Endocervical and/or squamous metaplastic cells (endocervical component) are present. Performed By: #### L 7400.0280 #### [facility] [address] [place], [place], [id number] COMM . Normal . [facility] Comment on above: Order Comment: Specfaustina buckley Comment: [id number] Specimen Comment: No. of containers..01 ThinPrep Vial Performed By: #### L [id number] #### [facility] [address] [place], [place], [address] COMMENT Comment Normal . [facility] Comment on above: Order Comment: Speci men Comment: [id number] Specimen Comment: No. of containers..01 ThinPrep Vial Result Comment: This liquid based ThinPrep(R) pap test was screened with the use of an image guided system. Performed By: #### L 7400.0280 #### [facility] [address] [place], [address] DIAG Comment Normal . [facility] Comment on above: Order Comment: Speci men Comment: [id number] Specimen Comment: No. of containers..01 ThinPrep Vial Result Comment: NEGA TIVE FOR INTRAEPITHELIAL LESION OR MALIGNANCY. Performed By: #### L 7400.0280 #### [facility] [address] [place], [address] HPV APTIMA, HR Negative Normal Negative [facility] Comment on above: Order Comment: Speci men Comment: [id number] Specimen Comment: No. of containers..01 ThinPrep Vial Result Comment: This nucleic acid amplification test detects fourteen high- risk HPV types (16,18,31,33,35,39,45,51,52,56,58,59,66,68) without differentiation. Performed By: #### L [id number] #### [facility] [address] [place], [address] HPV Ayde Rfx Comment Normal . [facility] Comment on above: Order Comment: Speci men Comment: [id number] Specimen Comment: No. of containers..01 ThinPrep Vial Result Comment: Crit eria not met, HPV Genotype not performed. Performed at: [address] [id number] [employer]: Anju Rogers MD, Phone: [phone] Performed at: =[address] [id number] [employer]: Anju Rogers MD, Phone: [phone] Performed By: #### L [id number] #### [facility] [address] [place], [place], [address] PAPSMR Comment Normal . [facility] Comment on above: Order Comment: Speci men Comment: [id number] Specimen Comment: No. of containers..01 ThinPrep Vial Result Comment: The Pap smear is a screening test designed to aid in the detection of premalignant and malignant conditions of the uterine cervix. It is not a diagnostic procedure and should not be used as the sole means of detecting cervical cancer. Both false-positive and false-negative reports do occur. Performed By: #### L [id number] #### [facility] [address] [place], [place], [id number] PERFORM Comment Normal . [facility] Comment on above: Order Comment: Speci men Comment: [id number] Specimen Comment: No. of containers..01 ThinPrep Vial Result Comment: Aishwarya Dasilva Tar Worker Performed By: #### L [id number] #### [facility] [address] [place], [place], [id number] Cervical or vaginal specimen microscopic examination by liquid based cytology (reportOrdered By: Renetta Toribio on 10-08-2024 Cytology report Cyto stain.thin prep Doc (Cvx/Vag) Comment . [facility] Comment on above: Criteria not met, HP V Genotype not performed.Performed at: - [address] [id number] Director: Anju Rogers MD, Phone: [phone] at: =[address] [id number] Director: Anju Rogers MD, Phone: [phone] Cervical or vagninal specime n microscopic examination by cytology stain (reported asOrdered By: Renetta Toribio on 10-08-2024 Cytology report Cyto stain Doc (Cvx/Vag) Comment . [facility] Comment on above: The Pap smear is a s creening test designed to aid in thedetection of premalignant and malignant conditions of theuterine cervix. It is not a diagnostic procedure andshould not be used as the sole means of detecting cervicalcancer. Both false-positive and false-negative reports dooccur. Detection in cervical specim en of any of human papilloma virus (HPV) 16, 18, 31, 33,Ordered By: Renetta Toribio on 10-08-2024 HPV 16+18+31+33+35+39+4 5+51+52+56+58+59+66 +68 DNA Probe+sig amp Ql (Cvx) Negative Negative [facility] Comment on above: This nucleic acid am plification test detects fourteen high- risk HPV types (16,18,31,33,35,39,45,51,52,56,58,59,66,68)without differentiation. Laboratory - CytologyOrdered By: Renetta Toribio on 10-08-2024 Tar Worker Cyto stain Nom (Cvx/Vag) [ID] Comment . [facility] Comment on above: [facility] - Miscellaneous t estsOrdered By: Renetta Toribio on 10-08-2024 Service comment (Unsp spec) [Interp] . . [facility] No Panel InformationOrdered By: Renetta Toribio on 10-08-2024 Pap Smear Specimen Adequacy Comment . [facility] Comment on above: Satisfactory for tuyet luation. Endocervical and/or squamous metaplasticcells (endocervical component) are present. [facility] Visit Reporton 10-08-2024 [facility] Visit Report [facility] [address], [address] [place] [address] OFFICE VISIT Date of Service: 10/08/24 MR#: [id number] Acct: [id number] Name: HEIDY CAMPA Rep #: [id number] : 1985 Provider: Dr. 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 Required: No Is patient in pain?: No Allergies Sulfa (Sulfonamide Antibiotics) Allergy (Mild, Verified 10/08/24 11:15) hives Medications ???Medication ???Instructions ???Recorded ???Confirmed ???Type levothyroxine 88 mcg capsule 88 mcg PO QDAY 10/08/24 10/08/24 H istory liothyronine 50 mcg tablet 100 mcg PO QDAY 10/08/24 10/08/24 History progesterone micronized 100 mg 100 mg PO QAM 10/08/24 10/08/24 Hi story capsule Is last menstrual period known: Yes Last Menstrual Period: 10/01/24 Post menopausal: No Patient : No : No PFSH Medical History Vaginal after Depression Lab test positive for detection of COVID-19 virus Nuchal fold thickening on ultrasound Chronic sinus infection Thyroid disorder Surgical History [place] teeth removed Hx of LASIK delivery delivered H/O rhinoplasty Family History Mother Hypertension Hyperlipidemia TIA (transient ischemic attack) Father Hypertension Grandmother Uterine cancer, Onset Age: 60 Grandfather Cancer stomach cancer (paternal) Social History (Updated 10/08/24 @ 11:17 by Christina Banda) household members: family housing: house number of children: 3 current occupational status: employed 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 Date Name GA/Weeks Outcome Route Bth Weight Infant Gen Labor Lgth Anesthesia Del Locatn Provider FOB Unknown Rama 11/09/2014 40 live - full term 7lbs 1oz Female spinal [facility]. Carrington 03/26/20 Low 38 live - full term 7lbs 1oz Male 11 hours epidural [facility] GP 08/18/21 [place] 39 live - full term Male [facility] Dr. Ruth lovett Delivery Date: Last Updated by: Renetta Toribio MD NST Decels, spontaneous ROM, Pitocin decels Delivery Date: 03/26/20 Last Updated by: Seble Dodson Laceration: Midline, Perineal Extension/lac, 2nd degree; nuchal cord loose HPI Encounter for routine gynecological examination Details: HEIDY CAMPA is a 39 year old who presents for annual exam. Last PAP: 09/03/2019 - normal History of abnormal PAP: Last mammogram: not due History of abnormal mammogram: Colon cancer screening: not due Other preventative health care screenings: PCP Carlos Hutchison). Sees "[facility]" AGRICULTURAL SPECIALIST for progesterone Female Reproductive History Last Menstrual Period: 10/01/24 Cycle Length: 21-35 Bleeding Duration: 5 Questions: metrorrhagia: No, sexually active: Yes, dyspareunia: No and PCB: No Menopausal Symptoms: Yes hot flashes, No night sweats, No weight change, No mood changes, No difficulty concentrating, No sleep problems and No change in libido ROS Const Constitutional: Reports as per HPI; Denies fatigue, increased appetite, poor appetite, night sweats, weight gain or weight loss Cardio Card: Denies chest pain Resp Resp: Denies cough or dyspnea GI GI: Reports as per HPI and bloating; Denies abdominal pain, constipation, nausea or vomiting : Reports as per HPI, hot flashes, urinary incontinence and other; Denies difficulty voiding, dysuria, hematuria, nipple discharge, pelvic pain, prolapse symptoms, urinary frequency, urinary urgency, vaginal discharge, vaginal dryness, vaginal odor or vaginal pruritus Skin Skin/Breast: Denies changing lesions, breast mass, breast pain, breast skin changes or nipple discharge Psych Psych: Denies anxiety, change in libido, depression or difficulty concentrating Exam Const General: cooperative, healthy appearing, comfortable, no acute distress, well developed and well groomed HENMI Head: normal to inspection and (more content not included)... Normal [facility] FT3on 07-24-2024 Free T3 [Mass/Vol] 4.10 pg/mL Normal 2.30-4.20 [facility] Comment on above: Performed By: #### F T3, FT4, VIDH #### [address] [address] FT4on 07-24-2024 Free T4 [Mass/Vol] 1.60 ng/dL Normal 0.89-1.76 [facility] Comment on above: Result Comment: No te - New Reference Range in effect 19 Performed By: #### F T3, FT4, VIDH #### [address] [address] VIDHon 07-24-2024 Vit. D 25-Hydroxy 78.1 ng/mL Normal [facility] Comment on above: Result Comment: Inte rpretive Values Based on Total 25(OH)D: Severe Deficiency <20 ng/mL Mild to Moderate Deficiency 20-30 ng/mL Optimum Levels 30-100 ng/mL Toxicity Possible >100 ng/mL Performed By: #### F T3, FT4, VIDH #### [address] [address] .Auto Diffon 07-16-2024 Basophil, Absolute 0.0 10 3/mcL Normal 0.0-0.3 [facility] Comment on above: Performed By: #### C BC, CMP, ADIFF, ANEU, GFR, LIPID, TSH #### [address] [address] Basophils/100 WBC (Bld) 0.2 % Normal 0.0-2.5 [facility] Comment on above: Performed By: #### C BC, CMP, ADIFF, ANEU, GFR, LIPID, TSH #### [address] [address] Eosinophil, Absolute 0.1 10 3/mcL Normal 0.0-0.7 [facility] Comment on above: Performed By: #### C BC, CMP, ADIFF, ANEU, GFR, LIPID, TSH #### [place] [id number] Eosinophils/100 WBC (Bld) 2.0 % Normal 0.0-6.0 [facility] Comment on above: Performed By: #### C BC, CMP, ADIFF, ANEU, GFR, LIPID, TSH #### [address] [address] Lymphocyte, Absolute 1.6 10 3/mcL Normal 0.9-4.3 [facility] Comment on above: Performed By: #### C BC, CMP, ADIFF, ANEU, GFR, LIPID, TSH #### [address] [address] Lymphocytes/100 WBC (Bld) 31.9 % Normal 20.0-40.0 [facility] Comment on above: Performed By: #### C BC, CMP, ADIFF, ANEU, GFR, LIPID, TSH #### [address] [address] Monocyte, Absolute 0.4 10 3/mcL Normal 0.1-1.4 [facility] Comment on above: Performed By: #### C BC, CMP, ADIFF, ANEU, GFR, LIPID, TSH #### [address] [address] Monocytes/100 WBC (Bld) 7.2 % Normal 2.0-13.0 [facility] Comment on above: Performed By: #### C BC, CMP, ADIFF, ANEU, GFR, LIPID, TSH #### [address] [address] Neutrophils/100 WBC (Bld) 58.7 % Normal 50.0-75.0 [facility] Comment on above: Performed By: #### C BC, CMP, ADIFF, ANEU, GFR, LIPID, TSH #### [address] [address] .GFRon 07-16-2024 Estimated Glomerular Filtration Rate 108 ml/min/1.73sqm Normal [facility] Comment on above: Result Comment: Stages of Chronic Kidney Disease (CKD) Stage Description eGFR(ml/min/1.73 sq.m.) CKD 1 Normal kidney function or >=90 normal kindney function with possible kidney damage (ex. Proteinuria) CKD 2 Kidney damage with mild loss 60-89 of kidney function CKD 3a Mild to moderate loss of kidney 45-59 function CKD 3b Moderate to severe loss of 30-44 of kindey function CKD 4 Severe loss of kidney function 15-29 CKD 5 Kidney failure <15 Note: (go live 2024) the eGFR calculation was updated to the 2020 CKD-EPI creatinine equation without a race factor to calculate the eGFR results. Performed By: #### C BC, CMP, ADIFF, ANEU, GFR, LIPID, TSH #### [address] [address] .NEUABSon 07-16-2024 Neutrophil, Absolute 3.0 10 3/mcL Normal 2.3-8.1 [facility] Comment on above: Performed By: #### C BC, CMP, ADIFF, ANEU, GFR, LIPID, TSH #### [place] [address] CBCon 07-16-2024 Erythrocyte distribution width (RBC) [Ratio] 12.5 % Normal 11.5-15.5 [facility] Comment on above: Performed By: #### C BC, CMP, ADIFF, ANEU, GFR, LIPID, TSH #### [place] [address] Hematocrit (Bld) [Volume fraction] 42.2 % Normal 34.0-46.0 [facility] Comment on above: Performed By: #### C BC, CMP, ADIFF, ANEU, GFR, LIPID, TSH #### [place] [address] Hgb 14.0 G/dL Normal 12.0-16.0 [facility] Comment on above: Performed By: #### C BC, CMP, ADIFF, ANEU, GFR, LIPID, TSH #### [place] [address] MCH (RBC) [Entitic mass] 29.7 pg Normal 27.0-33.0 [facility] Comment on above: Performed By: #### C BC, CMP, ADIFF, ANEU, GFR, LIPID, TSH #### [place] [id number] MCHC 33.2 G/dL Normal 32.0-36.0 [facility] Comment on above: Performed By: #### C BC, CMP, ADIFF, ANEU, GFR, LIPID, TSH #### [place] [address] MCV (RBC) [Entitic vol] 89.4 fL Normal 80.0-99.0 [facility] Comment on above: Performed By: #### C BC, CMP, ADIFF, ANEU, GFR, LIPID, TSH #### [place] [id number] Platelet 186 10 3/mcL Normal 150-450 [facility] Comment on above: Performed By: #### C BC, CMP, ADIFF, ANEU, GFR, LIPID, TSH #### [place] [address] Platelet mean volume (Bld) [Entitic vol] 11.4 fL High 6.6-10.5 [facility] Comment on above: Performed By: #### C BC, CMP, ADIFF, ANEU, GFR, LIPID, TSH #### [place] [address] RBC 4.72 10 6/mcL Normal 4.10-5.30 [facility] Comment on above: Performed By: #### C BC, CMP, ADIFF, ANEU, GFR, LIPID, TSH #### [place] [id number] WBC 5.0 10 3/mcL Normal 4.5-10.8 [facility] Comment on above: Performed By: #### C BC, CMP, ADIFF, ANEU, GFR, LIPID, TSH #### [place] [address] CMPon 07-16-2024 Albumin Level 3.9 G/dL Normal 3.2-4.8 [facility] Comment on above: Performed By: #### C BC, CMP, ADIFF, ANEU, GFR, LIPID, TSH #### [place] [address] Albumin/Globulin [Mass ratio] 1.3 {ratio} Normal 0.9-1.6 [facility] Comment on above: Performed By: #### C BC, CMP, ADIFF, ANEU, GFR, LIPID, TSH #### [address] [address] ALP [Catalytic activity/Vol] 59 U/L Normal 38-126 [facility] Comment on above: Performed By: #### C BC, CMP, ADIFF, ANEU, GFR, LIPID, TSH #### [address] [address] ALT [Catalytic activity/Vol] 15 U/L Normal 10-49 [facility] Comment on above: Performed By: #### C BC, CMP, ADIFF, ANEU, GFR, LIPID, TSH #### [address] [address] AST [Catalytic activity/Vol] 18 U/L Normal 8-34 [facility] Comment on above: Performed By: #### C BC, CMP, ADIFF, ANEU, GFR, LIPID, TSH #### [place] [id number] Bili Total 0.50 mg/dL Normal 0.20-1.20 [facility] Comment on above: Result Comment: Use of this assay is not recommended for patients undergoing treatment with eltrombopag due to the potential for falsely elevated results. Performed By: #### C BC, CMP, ADIFF, ANEU, GFR, LIPID, TSH #### [address] [address] BUN/Creatinine Ratio 27.4 ratio High 10.0-22.0 [facility] Comment on above: Performed By: #### C BC, CMP, ADIFF, ANEU, GFR, LIPID, TSH #### [address] [address] Calcium [Mass/Vol] 9.2 mg/dL Normal 8.7-10.4 [facility] Comment on above: Performed By: #### C BC, CMP, ADIFF, ANEU, GFR, LIPID, TSH #### [address] [address] Chloride [Moles/Vol] 107 mmol/L Normal 98-110 [facility] Comment on above: Performed By: #### C BC, CMP, ADIFF, ANEU, GFR, LIPID, TSH #### [address] [address] CO2 [Moles/Vol] 30 mmol/L Normal 22-32 [facility] Comment on above: Performed By: #### C BC, CMP, ADIFF, ANEU, GFR, LIPID, TSH #### [address] [address] Creatinine [Mass/Vol] 0.73 mg/dL Normal 0.50-1.20 [facility] Comment on above: Result Comment: Test ing performed on Balluun analyzer using enzymatic creatinine methodology. Performed By: #### C BC, CMP, ADIFF, ANEU, GFR, LIPID, TSH #### [address] [address] Electrolyte Balance 5.0 mEq/L Normal 4.0-15.0 [facility] Comment on above: Performed By: #### C BC, CMP, ADIFF, ANEU, GFR, LIPID, TSH #### [address] [address] Globulin 2.9 G/dL Normal 2.5-4.2 [facility] Comment on above: Performed By: #### C BC, CMP, ADIFF, ANEU, GFR, LIPID, TSH #### [address] [address] Glucose [Mass/Vol] 89 mg/dL Normal 70-110 [facility] Comment on above: Performed By: #### C BC, CMP, ADIFF, ANEU, GFR, LIPID, TSH #### [address] [address] Potassium [Moles/Vol] 4.7 mmol/L Normal 3.5-5.0 [facility] Comment on above: Performed By: #### C BC, CMP, ADIFF, ANEU, GFR, LIPID, TSH #### [address] [address] Sodium [Moles/Vol] 142 mmol/L Normal 136-145 [facility] Comment on above: Performed By: #### C BC, CMP, ADIFF, ANEU, GFR, LIPID, TSH #### [address] [address] Total Protein 6.8 G/dL Normal 5.7-8.2 [facility] Comment on above: Performed By: #### C BC, CMP, ADIFF, ANEU, GFR, LIPID, TSH #### [address] [address] Urea nitrogen [Mass/Vol] 20.0 mg/dL Normal 8.0-22.0 [facility] Comment on above: Performed By: #### C BC, CMP, ADIFF, ANEU, GFR, LIPID, TSH #### [address] [address] LIPIDon 07-16-2024 Cholesterol [Mass/Vol] 146 mg/dL Normal 50-199 [facility] Comment on above: Result Comment: Chol esterol Reference Interval: Less than 200 Desirable 200-239 Borderline high risk 240 and above High risk Performed By: #### C BC, CMP, ADIFF, ANEU, GFR, LIPID, TSH #### [place] [id number] Cholesterol in HDL [Mass/Vol] 36 mg/dL Low 40-59 [facility] Comment on above: Performed By: #### C BC, CMP, ADIFF, ANEU, GFR, LIPID, TSH #### [address] [address] Cholesterol in LDL [Mass/Vol] 95 mg/dL Normal 0-129 [facility] Comment on above: Performed By: #### C BC, CMP, ADIFF, ANEU, GFR, LIPID, TSH #### [address] [address] Triglyceride [Mass/Vol] 76 mg/dL Normal 3-149 [facility] Comment on above: Performed By: #### C BC, CMP, ADIFF, ANEU, GFR, LIPID, TSH #### [address] [address] TSHon 07-16-2024 TSH 0.186 mIU/mL Low 0.550-4.78 0 [facility] Comment on above: Performed By: #### C BC, CMP, ADIFF, ANEU, GFR, LIPID, TSH #### [place] [address] [address] [place] [address] .Auto Diffon 05-04-2024 Basophil, Absolute 0.0 10 3/mcL Normal 0.0-0.2 [facility] Comment on above: Performed By: #### C MP, ANEU, LIPID, GFR, ADIFF, TSH, CBC #### [address] [address] Basophils/100 WBC (Bld) 0.4 % Normal 0.0-2.5 [facility] Comment on above: Performed By: #### C MP, ANEU, LIPID, GFR, ADIFF, TSH, CBC #### [address] [address] Eosinophil, Absolute 0.1 10 3/mcL Normal 0.0-0.7 [facility] Comment on above: Performed By: #### C MP, ANEU, LIPID, GFR, ADIFF, TSH, CBC #### [address] [address] Eosinophils/100 WBC (Bld) 1.8 % Normal 0.0-7.0 [facility] Comment on above: Performed By: #### C MP, ANEU, LIPID, GFR, ADIFF, TSH, CBC #### [address] [address] Lymphocyte, Absolute 1.7 10 3/mcL Normal 0.9-4.3 [facility] Comment on above: Performed By: #### C MP, ANEU, LIPID, GFR, ADIFF, TSH, CBC #### [address] [address] Lymphocytes/100 WBC (Bld) 35.4 % Normal 20.0-40.0 [facility] Comment on above: Performed By: #### C MP, ANEU, LIPID, GFR, ADIFF, TSH, CBC #### [address] [address] Monocyte, Absolute 0.3 10 3/mcL Normal 0.1-1.4 [facility] Comment on above: Performed By: #### C MP, ANEU, LIPID, GFR, ADIFF, TSH, CBC #### [place] [address] [place], [place] [address] Monocytes/100 WBC (Bld) 5.6 % Normal 2.0-13.0 [facility] Comment on above: Performed By: #### C MP, ANEU, LIPID, GFR, ADIFF, TSH, CBC #### [place] [address] [place], [place] [address] Neutrophils/100 WBC (Bld) 56.8 % Normal 50.0-75.0 [facility] Comment on above: Performed By: #### C MP, ANEU, LIPID, GFR, ADIFF, TSH, CBC #### [address] [address] .GFRon 05-04-2024 Estimated Glomerular Filtration Rate 89 ml/min/1.73sqm Normal [facility] Comment on above: Result Comment: Stages of Chronic Kidney Disease (CKD) Stage Description eGFR(ml/min/1.73 sq.m.) CKD 1 Normal kidney function or >=90 normal kindney function with possible kidney damage (ex. Proteinuria) CKD 2 Kidney damage with mild loss 60-89 of kidney function CKD 3a Mild to moderate loss of kidney 45-59 function CKD 3b Moderate to severe loss of 30-44 of kindey function CKD 4 Severe loss of kidney function 15-29 CKD 5 Kidney failure <15 Note: (go live 2024) the eGFR calculation was updated to the 2020 CKD-EPI creatinine equation without a race factor to calculate the eGFR results. Performed By: #### C MP, ANEU, LIPID, GFR, ADIFF, TSH, CBC #### [address] [address] .NEUABSon 05-04-2024 Neutrophil, Absolute 2.8 10 3/mcL Normal 2.3-8.1 [facility] Comment on above: Performed By: #### C MP, ANEU, LIPID, GFR, ADIFF, TSH, CBC #### [place] [address] [place], [place] [address] CBCon 05-04-2024 Erythrocyte distribution width (RBC) [Ratio] 12.5 % Normal 11.5-15.5 [facility] Comment on above: Performed By: #### C MP, ANEU, LIPID, GFR, ADIFF, TSH, CBC #### [address] [address] Hematocrit (Bld) [Volume fraction] 41.2 % Normal 34.0-46.0 [facility] Comment on above: Performed By: #### C MP, ANEU, LIPID, GFR, ADIFF, TSH, CBC #### [address] [address] Hgb 14.0 G/dL Normal 12.0-16.0 [facility] Comment on above: Performed By: #### C MP, ANEU, LIPID, GFR, ADIFF, TSH, CBC #### [address] [address] MCH (RBC) [Entitic mass] 30.0 pg Normal 27.0-33.0 [facility] Comment on above: Performed By: #### C MP, ANEU, LIPID, GFR, ADIFF, TSH, CBC #### [address] [address] MCHC 34.1 G/dL Normal 32.0-36.0 [facility] Comment on above: Performed By: #### C MP, ANEU, LIPID, GFR, ADIFF, TSH, CBC #### [address] [address] MCV (RBC) [Entitic vol] 87.9 fL Normal 80.0-99.0 [facility] Comment on above: Performed By: #### C MP, ANEU, LIPID, GFR, ADIFF, TSH, CBC #### [address] [address] Platelet 236 10 3/mcL Normal 150-450 [facility] Comment on above: Performed By: #### C MP, ANEU, LIPID, GFR, ADIFF, TSH, CBC #### [address] [address] Platelet mean volume (Bld) [Entitic vol] 10.4 fL Normal 6.6-10.5 [facility] Comment on above: Performed By: #### C MP, ANEU, LIPID, GFR, ADIFF, TSH, CBC #### [address] [address] RBC 4.68 10 6/mcL Normal 4.10-5.30 [facility] Comment on above: Performed By: #### C MP, ANEU, LIPID, GFR, ADIFF, TSH, CBC #### [address] [address] WBC 4.8 10 3/mcL Normal 4.5-10.8 [facility] Comment on above: Performed By: #### C MP, ANEU, LIPID, GFR, ADIFF, TSH, CBC #### [address] [address] CMPon 05-04-2024 Albumin Level 3.7 G/dL Normal 3.5-5.0 [facility] Comment on above: Performed By: #### C MP, ANEU, LIPID, GFR, ADIFF, TSH, CBC #### [address] [address] Albumin/Globulin [Mass ratio] 1.1 {ratio} Normal 1.1-2.5 [facility] Comment on above: Performed By: #### C MP, ANEU, LIPID, GFR, ADIFF, TSH, CBC #### [address] [address] ALP [Catalytic activity/Vol] 70 U/L Normal 40-135 [facility] Comment on above: Performed By: #### C MP, ANEU, LIPID, GFR, ADIFF, TSH, CBC #### [address] [address] ALT [Catalytic activity/Vol] 19 U/L Normal 14-59 [facility] Comment on above: Performed By: #### C MP, ANEU, LIPID, GFR, ADIFF, TSH, CBC #### [address] [address] AST [Catalytic activity/Vol] 17 U/L Normal 10-40 [facility] Comment on above: Performed By: #### C MP, ANEU, LIPID, GFR, ADIFF, TSH, CBC #### [address] [address] Bili Total 0.3 mg/dL Normal 0.2-1.0 [facility] Comment on above: Result Comment: Use of this assay is not recommended for patients undergoing treatment with eltrombopag due to the potential for falsely elevated results. Performed By: #### C MP, ANEU, LIPID, GFR, ADIFF, TSH, CBC #### [address] [address] BUN/Creatinine Ratio 20 ratio Normal 7-27 [facility] Comment on above: Performed By: #### C MP, ANEU, LIPID, GFR, ADIFF, TSH, CBC #### [address] [address] Calcium [Mass/Vol] 9.1 mg/dL Normal 8.4-10.2 [facility] Comment on above: Performed By: #### C MP, ANEU, LIPID, GFR, ADIFF, TSH, CBC #### [address] [address] Chloride [Moles/Vol] 102 mmol/L Normal 98-107 [facility] Comment on above: Performed By: #### C MP, ANEU, LIPID, GFR, ADIFF, TSH, CBC #### [address] [address] CO2 [Moles/Vol] 27 mmol/L Normal 22-29 [facility] Comment on above: Performed By: #### C MP, ANEU, LIPID, GFR, ADIFF, TSH, CBC #### [address] [address] Creatinine [Mass/Vol] 0.86 mg/dL Normal 0.55-1.02 [facility] Comment on above: Result Comment: Test ing performed on Siemens Dimension EXL analyzer using a modified kinetic Lucas technique. Performed By: #### C MP, ANEU, LIPID, GFR, ADIFF, TSH, CBC #### [address] [address] Electrolyte Balance 9.0 mEq/L Normal 4.0-15.0 [facility] Comment on above: Performed By: #### C MP, ANEU, LIPID, GFR, ADIFF, TSH, CBC #### [address] [address] Globulin 3.5 G/dL Normal 1.5-3.8 [facility] Comment on above: Performed By: #### C MP, ANEU, LIPID, GFR, ADIFF, TSH, CBC #### [address] [address] Glucose [Mass/Vol] 82 mg/dL Normal 70-105 [facility] Comment on above: Performed By: #### C MP, ANEU, LIPID, GFR, ADIFF, TSH, CBC #### [address] [address] Potassium [Moles/Vol] 4.2 mmol/L Normal 3.5-5.1 [facility] Comment on above: Performed By: #### C MP, ANEU, LIPID, GFR, ADIFF, TSH, CBC #### [address] [address] Sodium [Moles/Vol] 138 mmol/L Normal 136-145 [facility] Comment on above: Performed By: #### C MP, ANEU, LIPID, GFR, ADIFF, TSH, CBC #### [address] [address] Total Protein 7.2 G/dL Normal 6.4-8.2 [facility] Comment on above: Performed By: #### C MP, ANEU, LIPID, GFR, ADIFF, TSH, CBC #### [address] [address] Urea nitrogen [Mass/Vol] 17 mg/dL Normal 7-18 [facility] Comment on above: Performed By: #### C MP, ANEU, LIPID, GFR, ADIFF, TSH, CBC #### [address] [address] LIPIDon 05-04-2024 Cholesterol [Mass/Vol] 168 mg/dL Normal 0-200 [facility] Comment on above: Result Comment: Chol esterol Reference Interval: Less than 200 Desirable 200-239 Borderline high risk 240 and above High risk Performed By: #### C MP, ANEU, LIPID, GFR, ADIFF, TSH, CBC #### [address] [address] Cholesterol in HDL [Mass/Vol] 46 mg/dL Normal 40-60 [facility] Comment on above: Performed By: #### C MP, ANEU, LIPID, GFR, ADIFF, TSH, CBC #### [address] [address] Cholesterol in LDL [Mass/Vol] 97 mg/dL Normal 0-130 [facility] Comment on above: Performed By: #### C MP, ANEU, LIPID, GFR, ADIFF, TSH, CBC #### [address] [address] Triglyceride [Mass/Vol] 124 mg/dL Normal 0-150 [facility] Comment on above: Result Comment: Trig lyceride Reference Interval: Less than 150 Normal 150-199 Borderline high risk 200-499 High risk 500 or higher Very high risk Performed By: #### C MP, ANEU, LIPID, GFR, ADIFF, TSH, CBC #### [address] [address] TSHon 05-04-2024 TSH Qn 0.87 m[IU]/L Normal 0.36-3.74 [facility] Comment on above: Performed By: #### C MP, ANEU, LIPID, GFR, ADIFF, TSH, CBC #### [address] [address] .Auto Diffon 07-18-2023 Basophil, Absolute 0.0 10 3/mcL Normal 0.0-0.3 [facility] ([place]) Comment on above: Performed By: #### C MP, ANEU, GFR, CBC, VIDH, ADIFF, TSH, LIPID #### [facility] [address] [place] [id number] Basophils/100 WBC (Bld) 0.6 % Normal 0.0-2.5 [facility] ([place]) Comment on above: Performed By: #### C MP, ANEU, GFR, CBC, VIDH, ADIFF, TSH, LIPID #### [address] [address] Eosinophil, Absolute 0.1 10 3/mcL Normal 0.0-0.7 [facility] ([place]) Comment on above: Performed By: #### C MP, ANEU, GFR, CBC, VIDH, ADIFF, TSH, LIPID #### [address] [address] Eosinophils/100 WBC (Bld) 2.5 % Normal 0.0-6.0 [facility] ([place]) Comment on above: Performed By: #### C MP, ANEU, GFR, CBC, VIDH, ADIFF, TSH, LIPID #### [address] [address] Lymphocyte, Absolute 2.0 10 3/mcL Normal 0.9-4.3 [facility] ([place]) Comment on above: Performed By: #### C MP, ANEU, GFR, CBC, VIDH, ADIFF, TSH, LIPID #### [address] [address] Lymphocytes/100 WBC (Bld) 40.0 % Normal 20.0-40.0 [facility] ([place]) Comment on above: Performed By: #### C MP, ANEU, GFR, CBC, VIDH, ADIFF, TSH, LIPID #### [address] [address] Monocyte, Absolute 0.3 10 3/mcL Normal 0.1-1.4 [facility] ([place]) Comment on above: Performed By: #### C MP, ANEU, GFR, CBC, VIDH, ADIFF, TSH, LIPID #### [address] [address] Monocytes/100 WBC (Bld) 5.2 % Normal 2.0-13.0 [facility] ([place]) Comment on above: Performed By: #### C MP, ANEU, GFR, CBC, VIDH, ADIFF, TSH, LIPID #### [address] [address] Neutrophils/100 WBC (Bld) 51.7 % Normal 50.0-75.0 [facility] ([place]) Comment on above: Performed By: #### C MP, ANEU, GFR, CBC, VIDH, ADIFF, TSH, LIPID #### [address] [address] .GFRon 07-18-2023 GFR Non- >60 Normal [facility] ([place]) Comment on above: Result Comment: GFR Population mean for , Non- Americans Ages 20-29 = 116 mL/min/1.73 sq.m. Ages 30-39 = 107 mL/min/1.73 sq.m. Ages 40-49 = 99 mL/min/1.73 sq.m. Ages 50-59 = 93 mL/min/1.73 sq.m. Ages 60-69 = 85 mL/min/1.73 sq.m. Ages 70+ = 75 mL/min/1.73 sq.m. Chronic Kidney Disease: Less than 60 mL/min/1.73 square meters End Stage Renal Disease: Less than 15 mL/min/1.73 square meters Performed By: #### T SH #### [address] [address] GFR >60 Normal [facility] ([place]) Comment on above: Result Comment: GFR Population mean for , Non- Americans Ages 20-29 = 116 mL/min/1.73 sq.m. Ages 30-39 = 107 mL/min/1.73 sq.m. Ages 40-49 = 99 mL/min/1.73 sq.m. Ages 50-59 = 93 mL/min/1.73 sq.m. Ages 60-69 = 85 mL/min/1.73 sq.m. Ages 70+ = 75 mL/min/1.73 sq.m. Chronic Kidney Disease: Less than 60 mL/min/1.73 square meters End Stage Renal Disease: Less than 15 mL/min/1.73 square meters Performed By: #### T SH #### [address] [address] .NEUABSon 07-18-2023 Neutrophil, Absolute 2.6 10 3/mcL Normal 2.3-8.1 [facility] ([place]) Comment on above: Performed By: #### C MP, ANEU, GFR, CBC, VIDH, ADIFF, TSH, LIPID #### [place] [address] CBCon 07-18-2023 Erythrocyte distribution width (RBC) [Ratio] 12.7 % Normal 11.5-15.5 [facility] ([place]) Comment on above: Performed By: #### C MP, ANEU, GFR, CBC, VIDH, ADIFF, TSH, LIPID #### [place] [address] Hematocrit (Bld) [Volume fraction] 40.0 % Normal 34.0-46.0 [facility] ([place]) Comment on above: Performed By: #### C MP, ANEU, GFR, CBC, VIDH, ADIFF, TSH, LIPID #### [place] [address] Hgb 13.4 G/dL Normal 12.0-16.0 [facility] ([place]) Comment on above: Performed By: #### C MP, ANEU, GFR, CBC, VIDH, ADIFF, TSH, LIPID #### [place] [address] MCH (RBC) [Entitic mass] 30.3 pg Normal 27.0-33.0 [facility] ([place]) Comment on above: Performed By: #### C MP, ANEU, GFR, CBC, VIDH, ADIFF, TSH, LIPID #### [place] [address] MCHC 33.4 G/dL Normal 32.0-36.0 [facility] ([place]) Comment on above: Performed By: #### C MP, ANEU, GFR, CBC, VIDH, ADIFF, TSH, LIPID #### [place] [address] MCV (RBC) [Entitic vol] 90.8 fL Normal 80.0-99.0 [facility] ([place]) Comment on above: Performed By: #### C MP, ANEU, GFR, CBC, VIDH, ADIFF, TSH, LIPID #### [place] [id number] Platelet 222 10 3/mcL Normal 150-450 [facility] ([place]) Comment on above: Performed By: #### C MP, ANEU, GFR, CBC, VIDH, ADIFF, TSH, LIPID #### [place] [id number] Platelet mean volume (Bld) [Entitic vol] 10.6 fL High 6.6-10.5 [facility] ([place]) Comment on above: Performed By: #### C MP, ANEU, GFR, CBC, VIDH, ADIFF, TSH, LIPID #### [place] [id number] RBC 4.41 10 6/mcL Normal 4.10-5.30 [facility] ([place]) Comment on above: Performed By: #### C MP, ANEU, GFR, CBC, VIDH, ADIFF, TSH, LIPID #### [place] [id number] WBC 5.1 10 3/mcL Normal 4.5-10.8 [facility] ([place]) Comment on above: Performed By: #### C MP, ANEU, GFR, CBC, VIDH, ADIFF, TSH, LIPID #### [address] [address] CMPon 07-18-2023 Albumin Level 3.9 G/dL Normal 3.2-4.8 [facility] ([place]) Comment on above: Performed By: #### T SH #### [place] [id number] Albumin/Globulin [Mass ratio] 1.4 {ratio} Normal 0.9-1.6 [facility] ([place]) Comment on above: Performed By: #### T SH #### [place] [id number] ALP [Catalytic activity/Vol] 64 U/L Normal 38-126 [facility] ([place]) Comment on above: Performed By: #### T SH #### [address] [address] ALT [Catalytic activity/Vol] 18 U/L Normal 10-49 [facility] ([place]) Comment on above: Performed By: #### T SH #### [address] [address] AST [Catalytic activity/Vol] 19 U/L Normal 8-34 [facility] ([place]) Comment on above: Performed By: #### T SH #### [place] [id number] Bili Total 0.50 mg/dL Normal 0.20-1.20 [facility] ([place]) Comment on above: Result Comment: Use of this assay is not recommended for patients undergoing treatment with eltrombopag due to the potential for falsely elevated results. Performed By: #### T SH #### [place] [id number] BUN/Creatinine Ratio 19.0 ratio Normal 10.0-22.0 [facility] ([place]) Comment on above: Performed By: #### T SH #### [place] [id number] Calcium [Mass/Vol] 9.3 mg/dL Normal 8.7-10.4 [facility] ([place]) Comment on above: Performed By: #### T SH #### [place] [id number] Chloride [Moles/Vol] 109 mmol/L Normal 98-110 [facility] ([place]) Comment on above: Performed By: #### T SH #### [place] [id number] CO2 [Moles/Vol] 26 mmol/L Normal 22-32 [facility] ([place]) Comment on above: Performed By: #### T SH #### [place] [id number] Creatinine [Mass/Vol] 0.79 mg/dL Normal 0.50-1.20 [facility] ([place]) Comment on above: Performed By: #### T SH #### [place] [id number] Electrolyte Balance 7.0 mEq/L Normal 4.0-15.0 [facility] ([place]) Comment on above: Performed By: #### T SH #### [address] [address] Globulin 2.8 G/dL Normal 1.5-3.8 [facility] ([place]) Comment on above: Performed By: #### T SH #### [place] [id number] Glucose [Mass/Vol] 79 mg/dL Normal 70-110 [facility] ([place]) Comment on above: Performed By: #### T SH #### [place] [id number] Potassium [Moles/Vol] 4.9 mmol/L Normal 3.5-5.0 [facility] ([place]) Comment on above: Performed By: #### T SH #### [place] [address] Sodium [Moles/Vol] 142 mmol/L Normal 136-145 [facility] ([place]) Comment on above: Performed By: #### T SH #### [place] [id number] Total Protein 6.7 G/dL Normal 5.7-8.2 [facility] ([place]) Comment on above: Result Comment: No te - New Reference Range in effect 19 Performed By: #### T SH #### [place] [id number] Urea nitrogen [Mass/Vol] 15.0 mg/dL Normal 8.0-22.0 [facility] ([place]) Comment on above: Performed By: #### T SH #### [place] [id number] LIPIDon 07-18-2023 Cholesterol [Mass/Vol] 158 mg/dL Normal 50-199 [facility] ([place]) Comment on above: Result Comment: Chol esterol Reference Interval: Less than 200 Desirable 200-239 Borderline high risk 240 and above High risk Performed By: #### T SH #### [facility] [address] [place], [place] [address] Cholesterol in HDL [Mass/Vol] 41 mg/dL Normal 40-59 [facility] ([place]) Comment on above: Performed By: #### T SH #### [address] [address] Cholesterol in LDL [Mass/Vol] 89 mg/dL Normal 0-129 [facility] ([place]) Comment on above: Performed By: #### T SH #### [address] [address] Triglyceride [Mass/Vol] 142 mg/dL Normal 3-149 [facility] ([place]) Comment on above: Performed By: #### T SH #### [place] [id number] TSHon 07-18-2023 TSH 1.017 mIU/mL Normal 0.550-4.78 0 [facility] ([place]) Comment on above: Result Comment: No te - New Reference Range in effect 19 Performed By: #### T SH #### [address] [address] VIDHon 07-18-2023 Vit. D 25-Hydroxy 42.0 ng/mL Normal [facility] ([place]) Comment on above: Result Comment: Inte rpretive Values Based on Total 25(OH)D: Severe Deficiency <20 ng/mL Mild to Moderate Deficiency 20-30 ng/mL Optimum Levels 30-100 ng/mL Toxicity Possible >100 ng/mL Performed By: #### T SH #### [place] [address] Final Surgical Pathology Rep [facility] 11-08-2022 Final Surgical Pathology Report . Pathology Reports Accession: Collected Date/Time: Received Date/Time: Pathologist: [id number] 11/05/2022 11:06 EDT 11/05/2022 14:11 EDT EUGENE RIDDLE MD Final Surgical Pathology Report DIAGNOSIS: A. SOFT TISSUE, BACK, LESIONS X 2: - ANGIOLIPOMAS X 2 B. SOFT TISSUE, RIGHT FLANK: - ANGIOLIPOMA C. SOFT TISSUE, RIGHT INNER THIGH: - ANGIOLIPOMA D. SOFT TISSUE, RIGHT ANTERIOR UPPER THIGH: - ANGIOLIPOMA CLINICAL INFORMATION: Procedure: EXCISION LIPOMA LEFT LOWER BACK X2, RIGHT FLANK, RIGHT INNER THIGH, AND RIGHT ANTERIOR UPPER THIGH Preoperative diagnosis: LIPOMA LEFT LOWER BACK X2, RIGHT FLANK, RIGHT INNER THIGH, RIGHT ANTERIOR UPPER THIGH Postoperative diagnosis: LIPOMA LEFT LOWER BACK X2, RIGHT FLANK, RIGHT INNER THIGH, RIGHT ANTERIOR UPPER THIGH SPECIMEN: A BACK LIPOMA X2 B RIGHT FLANK LIPOMA C RIGHT INNER THIGH LIPOMA D RIGHT ANTERIOR UPPER THIGH LIPOMA GROSS DESCRIPTION: A. Received in formalin, labeled with the patients name, Case # [id number], and "back lipoma x 2 are 2 yellow lobulated portions of smooth adipose tissue measuring 1.2 x 0.8 x 0.6 and 3.1 x 1.7 x 1 cm. Sectioning reveals yellow, homogeneous cut surfaces with no areas of hemorrhage or necrosis. RS -1 B. Received in formalin labeled "right flank lipoma" is a yellow lobulated portion of adipose tissue measuring 2.6 x 1.5 x 1 cm. RS -1 C. Received in formalin labeled "right inner thigh lipoma" is a yellow smooth portion of adipose tissue measuring 3 x 2.4 x 1 cm. Tissue is sectioned to reveal yellow, glistening, homogeneous cut surfaces. RS -1 D. Received in formalin labeled "right anterior upper thigh lipoma" is a yellow, lobulated portion of adipose tissue measuring 1.2 x 1 x 0.8 cm. Tissue is bisected. TS -1 Dictated by PACO VANEGAS MICROSCOPIC DESCRIPTION: The microscopic examination is performed, except in the case of Gross Only. Electronically Signed by Pathology Report verified by [facility] EUGENE RIDDLE Sign out Date: 11/08/2022 12:44 Performing Lab: [address] Pathology Dept Pathology Reports Accession: Collected Date/Time: Received Date/Time: Pathologist: [id number] 11/05/2022 11:06 EDT 11/05/2022 14:11 EDT EUGENE RIDDLE MD Disclaimer If ancillary studies were utilized, the following Laboratory Developed Test (LDT) disclaimer will apply: Under CLIA requirements, [facility] is qualified to perform high complexity testing. For all ancillary stains, positive and negative controls stain appropriately. Performance characteristics of immunohistochemical and chromogenic in-situ hybridization tests have been determined by [facility]. These tests are used for clinical purposes, They should not be regarded as investigational or for research. Normal [facility]) LABORATORYOrdered By: Danya Barnes on 11-05-2022 Beta HCG ( test) Ql (U) Negative (11/05/22 8:56 AM) [facility] Work Phone: .Auto Diffon 10-22-2022 Basophil, Absolute 0.0 10 3/mcL Normal 0.0-0.3 [facility] ([place]) Comment on above: Performed By: #### A DIFF, BMP, GFR, ANEU, CBC #### [address] [address] Basophils/100 WBC (Bld) 0.5 % Normal 0.0-2.5 [facility] ([place]) Comment on above: Performed By: #### A DIFF, BMP, GFR, ANEU, CBC #### [address] [address] Eosinophil, Absolute 0.1 10 3/mcL Normal 0.0-0.7 [facility] ([place]) Comment on above: Performed By: #### A DIFF, BMP, GFR, ANEU, CBC #### [address] [address] Eosinophils/100 WBC (Bld) 2.3 % Normal 0.0-6.0 [facility] ([place]) Comment on above: Performed By: #### A DIFF, BMP, GFR, ANEU, CBC #### [address] [address] Lymphocyte, Absolute 1.2 10 3/mcL Normal 0.9-4.3 [facility] ([place]) Comment on above: Performed By: #### A DIFF, BMP, GFR, ANEU, CBC #### [address] [address] Lymphocytes/100 WBC (Bld) 33.9 % Normal 20.0-40.0 [facility] ([place]) Comment on above: Performed By: #### A DIFF, BMP, GFR, ANEU, CBC #### [address] [address] Monocyte, Absolute 0.4 10 3/mcL Normal 0.1-1.4 [facility] ([place]) Comment on above: Performed By: #### A DIFF, BMP, GFR, ANEU, CBC #### [address] [address] Monocytes/100 WBC (Bld) 11.7 % Normal 2.0-13.0 [facility] ([place]) Comment on above: Performed By: #### A DIFF, BMP, GFR, ANEU, CBC #### [address] [address] Neutrophils/100 WBC (Bld) 51.6 % Normal 50.0-75.0 [facility] ([place]) Comment on above: Performed By: #### A DIFF, BMP, GFR, ANEU, CBC #### [address] [address] .GFRon 10-22-2022 GFR Non- >60 Normal [facility] ([place]) Comment on above: Result Comment: GFR Population mean for , Non- Americans Ages 20-29 = 116 mL/min/1.73 sq.m. Ages 30-39 = 107 mL/min/1.73 sq.m. Ages 40-49 = 99 mL/min/1.73 sq.m. Ages 50-59 = 93 mL/min/1.73 sq.m. Ages 60-69 = 85 mL/min/1.73 sq.m. Ages 70+ = 75 mL/min/1.73 sq.m. Chronic Kidney Disease: Less than 60 mL/min/1.73 square meters End Stage Renal Disease: Less than 15 mL/min/1.73 square meters Performed By: #### A DIFF, BMP, GFR, ANEU, CBC #### [address] [address] GFR >60 Normal [facility] ([place]) Comment on above: Result Comment: GFR Population mean for , Non- Americans Ages 20-29 = 116 mL/min/1.73 sq.m. Ages 30-39 = 107 mL/min/1.73 sq.m. Ages 40-49 = 99 mL/min/1.73 sq.m. Ages 50-59 = 93 mL/min/1.73 sq.m. Ages 60-69 = 85 mL/min/1.73 sq.m. Ages 70+ = 75 mL/min/1.73 sq.m. Chronic Kidney Disease: Less than 60 mL/min/1.73 square meters End Stage Renal Disease: Less than 15 mL/min/1.73 square meters Performed By: #### A DIFF, BMP, GFR, ANEU, CBC #### [address] [address] .NEUABSon 10-22-2022 Neutrophil, Absolute 1.8 10 3/mcL Low 2.3-8.1 [facility] ([place]) Comment on above: Performed By: #### A DIFF, BMP, GFR, ANEU, CBC #### [address] [address] BMPon 10-22-2022 BUN/Creatinine Ratio 18.3 ratio Normal 10.0-22.0 [facility] ([place]) Comment on above: Performed By: #### A DIFF, BMP, GFR, ANEU, CBC #### [address] [address] Calcium [Mass/Vol] 9.0 mg/dL Normal 8.7-10.4 [facility] ([place]) Comment on above: Performed By: #### A DIFF, BMP, GFR, ANEU, CBC #### [address] [address] Chloride [Moles/Vol] 108 mmol/L Normal 98-110 [facility] ([place]) Comment on above: Performed By: #### A DIFF, BMP, GFR, ANEU, CBC #### [address] [address] CO2 [Moles/Vol] 28 mmol/L Normal 22-32 [facility] ([place]) Comment on above: Performed By: #### A DIFF, BMP, GFR, ANEU, CBC #### [address] [address] Creatinine [Mass/Vol] 0.71 mg/dL Normal 0.50-1.20 [facility] ([place]) Comment on above: Performed By: #### A DIFF, BMP, GFR, ANEU, CBC #### [address] [address] Electrolyte Balance 6.0 mEq/L Normal 4.0-15.0 [facility] ([place]) Comment on above: Performed By: #### A DIFF, BMP, GFR, ANEU, CBC #### [address] [address] Glucose [Mass/Vol] 91 mg/dL Normal 70-110 [facility] ([place]) Comment on above: Performed By: #### A DIFF, BMP, GFR, ANEU, CBC #### [place] [address] Potassium [Moles/Vol] 5.0 mmol/L Normal 3.5-5.0 [facility] ([place]) Comment on above: Performed By: #### A DIFF, BMP, GFR, ANEU, CBC #### [place] [address] Sodium [Moles/Vol] 142 mmol/L Normal 136-145 [facility] ([place]) Comment on above: Performed By: #### A DIFF, BMP, GFR, ANEU, CBC #### [address] [address] Urea nitrogen [Mass/Vol] 13.0 mg/dL Normal 8.0-22.0 [facility] ([place]) Comment on above: Performed By: #### A DIFF, BMP, GFR, ANEU, CBC #### [address] [address] CBCon 10-22-2022 Erythrocyte distribution width (RBC) [Ratio] 12.8 % Normal 11.5-15.5 [facility] ([place]) Comment on above: Performed By: #### A DIFF, BMP, GFR, ANEU, CBC #### [address] [address] Hematocrit (Bld) [Volume fraction] 39.3 % Normal 34.0-46.0 [facility] ([place]) Comment on above: Performed By: #### A DIFF, BMP, GFR, ANEU, CBC #### [address] [address] Hgb 13.2 G/dL Normal 12.0-16.0 [facility] ([place]) Comment on above: Performed By: #### A DIFF, BMP, GFR, ANEU, CBC #### [address] [address] MCH (RBC) [Entitic mass] 30.3 pg Normal 27.0-33.0 [facility] ([place]) Comment on above: Performed By: #### A DIFF, BMP, GFR, ANEU, CBC #### [place] [address] MCHC 33.5 G/dL Normal 32.0-36.0 [facility] ([place]) Comment on above: Performed By: #### A DIFF, BMP, GFR, ANEU, CBC #### [place] [address] MCV (RBC) [Entitic vol] 90.5 fL Normal 80.0-99.0 [facility] ([place]) Comment on above: Performed By: #### A DIFF, BMP, GFR, ANEU, CBC #### [place] [address] Platelet 193 10 3/mcL Normal 150-450 [facility] ([place]) Comment on above: Performed By: #### A DIFF, BMP, GFR, ANEU, CBC #### [place] [address] Platelet mean volume (Bld) [Entitic vol] 10.8 fL High 6.6-10.5 [facility] ([place]) Comment on above: Performed By: #### A DIFF, BMP, GFR, ANEU, CBC #### [place] [address] RBC 4.34 10 6/mcL Normal 4.10-5.30 [facility] ([place]) Comment on above: Performed By: #### A DIFF, BMP, GFR, ANEU, CBC #### [place] [id number] WBC 3.4 10 3/mcL Low 4.5-10.8 [facility] ([place]) Comment on above: Performed By: #### A DIFF, BMP, GFR, ANEU, CBC #### [place] [id number] [place] [address] LABORATORYOrdered By: SYSTEM SYSTEM on 10-22-2022 Basophils (Bld) [#/Vol] 0.0 103/mcL Invalid Interpretation Code 0.0 - 0.3 10^3/mcL Workflow SS Basophils/100 WBC (Bld) 0.5 % Invalid Interpretation Code 0.0 - 2.5 % Workflow SS Calcium [Mass/Vol] 9.0 mg/dL Invalid Interpretation Code 8.7 - 10.4 mg/dL ADM SS Chloride [Moles/Vol] 108 mmol/L Invalid Interpretation Code 98 - 110 mEq/L ADM SS CO2 [Moles/Vol] 28 mmol/L Invalid Interpretation Code 22 - 32 mEq/L ADM SS Creatinine [Mass/Vol] 0.71 mg/dL Invalid Interpretation Code 0.50 - 1.20 mg/dL ADM SS Electrolyte Balance 6.0 mEq/L Invalid Interpretation Code 4.0 - 15.0 mEq/L ADM SS Eosinophils (Bld) [#/Vol] 0.1 103/mcL Invalid Interpretation Code 0.0 - 0.7 10^3/mcL Workflow SS Eosinophils/100 WBC (Bld) 2.3 % Invalid Interpretation Code 0.0 - 6.0 % Workflow SS Erythrocyte distribution width (RBC) [Ratio] 12.8 % Invalid Interpretation Code 11.5 - 15.5 % Workflow SS GFR/1.73 sq M.predicted among blacks MDRD (S/P/Bld) [Vol rate/Area] ml/min/1.73sqm Invalid Interpretation Code Chemistry S Comment on above: Interpretive Data: GFR Population mean for , Non- Americans Ages 20-29 = 116 mL/min/1.73 sq.m. Ages 30-39 = 107 mL/min/1.73 sq.m. Ages 40-49 = 99 mL/min/1.73 sq.m. Ages 50-59 = 93 mL/min/1.73 sq.m. Ages 60-69 = 85 mL/min/1.73 sq.m. Ages 70+ = 75 mL/min/1.73 sq.m. Chronic Kidney Disease: Less than 60 mL/min/1.73 square meters End Stage Renal Disease: Less than 15 mL/min/1.73 square meters GFR/1.73 sq M.predicted among non-blacks MDRD (S/P/Bld) [Vol rate/Area] ml/min/1.73sqm Invalid Interpretation Code Chemistry S Comment on above: Interpretive Data: GFR Population mean for , Non- Americans Ages 20-29 = 116 mL/min/1.73 sq.m. Ages 30-39 = 107 mL/min/1.73 sq.m. Ages 40-49 = 99 mL/min/1.73 sq.m. Ages 50-59 = 93 mL/min/1.73 sq.m. Ages 60-69 = 85 mL/min/1.73 sq.m. Ages 70+ = 75 mL/min/1.73 sq.m. Chronic Kidney Disease: Less than 60 mL/min/1.73 square meters End Stage Renal Disease: Less than 15 mL/min/1.73 square meters Glucose [Mass/Vol] 91 mg/dL Invalid Interpretation Code 70 - 110 mg/dL ADM SS Hematocrit (Bld) [Volume fraction] 39.3 % Invalid Interpretation Code 34.0 - 46.0 % Workflow SS Hemoglobin (Bld) [Mass/Vol] 13.2 G/dL Invalid Interpretation Code 12.0 - 16.0 G/dL AH Workflow SS Lymphocytes (Bld) [#/Vol] 1.2 103/mcL Invalid Interpretation Code 0.9 - 4.3 10^3/mcL Workflow SS Lymphocytes/100 WBC (Bld) 33.9 % Invalid Interpretation Code 20.0 - 40.0 % Workflow SS MCH (RBC) [Entitic mass] 30.3 pg Invalid Interpretation Code 27.0 - 33.0 pg AH Workflow SS MCHC 33.5 G/dL Invalid Interpretation Code 32.0 - 36.0 G/dL Workflow SS MCV (RBC) [Entitic vol] 90.5 fL Invalid Interpretation Code 80.0 - 99.0 fL Workflow SS Monocytes (Bld) [#/Vol] 0.4 103/mcL Invalid Interpretation Code 0.1 - 1.4 10^3/mcL AH Workflow SS Monocytes/100 WBC (Bld) 11.7 % Invalid Interpretation Code 2.0 - 13.0 % AH Workflow SS Neutrophils (Bld) [#/Vol] 1.8 103/mcL Invalid Interpretation Code 2.3 - 8.1 10^3/mcL AH Workflow SS Neutrophils/100 WBC (Bld) 51.6 % Invalid Interpretation Code 50.0 - 75.0 % AH Workflow SS Platelet mean volume (Bld) [Entitic vol] 10.8 fL Invalid Interpretation Code 6.6 - 10.5 fL AH Workflow SS Platelets (Bld) [#/Vol] 193 103/mcL Invalid Interpretation Code 150 - 450 10^3/mcL AH Workflow SS Potassium [Moles/Vol] 5.0 mmol/L Invalid Interpretation Code 3.5 - 5.0 mEq/L AH ADM SS RBC (Bld) [#/Vol] 4.34 106/mcL Invalid Interpretation Code 4.10 - 5.30 10^6/mcL AH Workflow SS Sodium [Moles/Vol] 142 mmol/L Invalid Interpretation Code 136 - 145 mEq/L ADM SS Urea nitrogen [Mass/Vol] 13.0 mg/dL Invalid Interpretation Code 8.0 - 22.0 mg/dL AH ADM SS Urea nitrogen/Creatinine [Mass ratio] 18.3 ratio Invalid Interpretation Code 10.0 - 22.0 ratio AH ADM SS WBC (Bld) [#/Vol] 3.4 103/mcL Invalid Interpretation Code 4.5 - 10.8 10^3/mcL Workflow SS Serum or plasma 17-hydroxypr ogesterone measurement (mass/volume)Ordered By: Renetta Toribio on 10-04-2022 17-Hydroxyprogester one [Mass/Vol] 178 ng/dL . [facility] Comment on above: Adult Female Follicu lar 15 - 70 Luteal 35 - 290Performed at: - [facility] [address] [id number] Director: Alejandra Fam MD, Phone: [phone] Serum or plasma prolactin me asurement (mass/volume)Ordered By: Renetta Toribio on 10-04-2022 Prolactin [Mass/Vol] 24.1 ng/mL [facility] Comment on above: NORMAL REFERENCE RAN GES FEMALE NON- 2.2 - 30.3 ng/mL 8.1 - 347.6 ng/mL POST-MENOPAUSAL 0.7 - 31.5 ng/mL MALE 2.5 - 17.4 ng/mL TSHon 09-10-2022 TSH 1.178 mIU/mL Normal 0.550-4.78 0 [facility] ([place]) Comment on above: Result Comment: No te - New Reference Range in effect 19 Performed By: #### T SH #### [facility] [address] [place] [address] Laboratory - Chemistry and C hemistry - challengeon 07-31-2021 Glucose Ql (U) Negative [facility] Work Phone: Laboratory - Urinalysison Protein Ql (U) Negative [facility] Work Phone: Laboratory - Chemistry and C hemistry - challengeon 07-24-2021 Glucose Ql (U) Negative [facility] Work Phone: Laboratory - Urinalysison Protein Ql (U) Negative [facility] Work Phone: Laboratory - Chemistry and C hemistry - challengeon 07-10-2021 Glucose Ql (U) Negative [facility] Work Phone: Laboratory - Urinalysison Protein Ql (U) Trace [facility] Work Phone: Laboratory - Chemistry and C hemistry - challengeon 06-22-2021 Glucose Ql (U) Negative [facility] Work Phone: Laboratory - Urinalysison Protein Ql (U) Trace [facility] Work Phone: Absolute lymphocyte counton 06-02-2021 Lymphocytes Auto (Unsp spec) [#/Vol] 2.03 10*3/uL 0.83-4.51 [facility] Work Phone: Basophil percentageon 2021 Basophils/100 WBC (Bld) 0.2 % 0-1 [facility] Work Phone: Eosinophils/100 WBC (Bld) 0.8 % 0-5 [facility] Work Phone: Neutrophils (Bld) [#/Vol] 6.4 10*3/uL 2.0-7.7 [facility] Work Phone: [phone] Neutrophils/100 WBC (Bld) 69.7 % 47-70 [facility] Work Phone: WBC (Bld) [#/Vol] 9.1 10*3/uL 4.4-11.0 [facility] Work Phone: Blood erythrocytes count (nu mber/volume)on 06-02-2021 RBC (Bld) [#/Vol] 3.60 10*6/uL 4.2-5.4 [facility] Work Phone: Blood hemoglobin measurement (mass/volume)on 06-02-2021 Hemoglobin (Bld) [Mass/Vol] 11.0 g/dL 12.0-15.0 [facility] Work Phone: Blood lymphocytes/100 leukoc yteson 06-02-2021 Lymphocytes/100 WBC (Bld) 22.2 % 19-41 [facility] Work Phone: Blood monocytes/100 leukocyt eson 06-02-2021 Monocytes/100 WBC (Bld) 5.9 % 0-10 [facility] Work Phone: Blood platelet mean volumeon 06-02-2021 Platelet mean volume (Bld) [Entitic vol] 12.9 fL 6.2-12.0 [facility] Work Phone: Determination of erythrocyte mean corpuscular volume (MCV)on 06-02-2021 MCV (RBC) [Entitic vol] 91.9 fL 81-99 [facility] Work Phone: Gestational diabetes screen 1-hour screen with 50g oral glucose loadon 06-02-2021 Glucose 1 Hr post 50 g glucose PO [Mass/Vol] 120 mg/dL 70-140 [facility] Work Phone: Hematocrit Auto (Bld) [Volum e fraction]on 06-02-2021 Hematocrit (Bld) [Volume fraction] 33.1 % 37-47 [facility] Work Phone: Laboratory - Chemistry and C hemistry - challengeon 06-02-2021 Glucose Ql (U) Negative [facility] Work Phone: Free T4 [Mass/Vol] 0.83 ng/dL 0.76-1.46 [facility] Work Phone: Laboratory - Hematology and Cell countson 06-02-2021 Erythrocyte distribution width (RBC) [Entitic vol] 45.1 fL 35.1-43.9 [facility] Work Phone: Erythrocyte distribution width (RBC) [Ratio] 13.3 % 11.6-14.6 [facility] Work Phone: Immature granulocytes/100 WBC (Bld) 1.200 % 0.0-0.9 [facility] Work Phone: Comment on above: IG% - Immature Granu locytes (promyelocytes, myelocytes and metamyelocytes) > 1% indicates that a LEFT SHIFT is Present. MCH (RBC) [Entitic mass] 30.6 pg 27.0-32.0 [facility] Work Phone: Nucleated RBC/100 WBC (Bld) [Ratio] 0 % 0-5 [facility] Work Phone: Laboratory - Urinalysison Protein Ql (U) Negative [facility] Work Phone: MCHC Auto (RBC) [Mass/Vol]on 06-02-2021 MCHC (RBC) [Mass/Vol] 33.2 g/dL 32-36 [facility] Work Phone: No Panel Informationon 06-02 Thyroid Stimulating Hormone (TSH) 1.78 uIU/mL 0.358-3.74 [facility] Work Phone: Platelets bldon 06-02-2021 Platelets (Bld) [#/Vol] 169 10*3/uL 150-450 [facility] Work Phone: Laboratory - Chemistry and C hemistry - challengeon 05-11-2021 Glucose Ql (U) Negative [facility] Work Phone: Laboratory - Urinalysison Protein Ql (U) Negative [facility] Work Phone: Progress Noteon 04-03-2021 [employer] Captain Authentication Interface Message Text We had the pleasure of seeing Heidy Campa in the Heart Clinic at the [facility] on 04/03/2021. Mrs. Campa is a 35 y.o. woman who is currently at 19 2/7 weeks of gestation seen in consultation for increased nuchal fold thickness and suboptimal cardiac views at the request of Dr. Sally Gill. On review of obstetric history, Mrs. Campa is 3 para 2 with estimated due date 08/26/2021. Past medical history was reviewed and is significant for hypothyroidism and depression. Current medications are levothyroxine, bupropion, amoxicillin-clavulanate, and vitamins. There are allergies to sulfa antibiotics. Family history was reviewed and is negative for congenital heart disease. On review of social history, Heidy Campa lives with her family in [place], [place]. Today's echocardiogram demonstrated: SUMMARY: 1. Normal echocardiogram. 2. This study is limited in evaluating minor valve abnormalities, septal defects, partial anomalous pulmonary venous connection, and aortic arch abnormalities. 3. The above findings, including the limitations, were discussed with the patient. ------- REASON FOR EXAM: Increased nuchal fold thickness. ------- STUDY AND PROCEDURE DATA: Procedure Description: New ([id number]) . Study status: Routine. Location: Echo laboratory. Procedure: Transabdominal echocardiography for congenital heart disease evaluation. Patient status: Outpatient. Maternal age: 35yr. : 3. Parity: 2. Expected delivery date: 08/26/2021. Gestational age: 19wk. Trimester: 2nd trimester. ------- FINDINGS: DESCRIPTION One fetus is present. Normal three vessel view. The rhythm is sinus rhythm, with a heart rate of 161bpm. The position is breech. Normal Doppler pattern of the ductus venosus, umbilical artery, and vein. Three vessel cord. ANATOMIC RELATIONSHIPS - Normal visceral situs, with left sided stomach. Left sided cardiac apex (levocardia).Normally related great vessels. VEINS AND ATRIA Atrial septum - There is a patent foramen ovale. There is a [id number] shunt. Left atrium - The atrium is normal in size. Right atrium - The atrium is normal in size. Systemic veins - Inferior vena cava and superior vena cava seen entering normally into the right atrium. Pulmonary veins: There are at least 2 out of 4 pulmonary veins seen entering normally into the left atrium, with normal Doppler pattern. A-V CANAL Tricuspid valve - The valve is structurally normal. - There is normal biphasic inflow spectral Doppler. There is no regurgitation. Mitral valve - The valve is structurally normal. - There is normal biphasic inflow spectral Doppler. There is no regurgitation. VENTRICLES Right ventricle - The cavity size is normal. Wall thickness is normal. Systolic function is qualitatively normal. Left ventricle - The cavity size is normal. Wall thickness is normal. Systolic function is quantitatively normal. The endocardial fractional shortening (MM) is 42%. CONOTRUNCUS Aortic valve - There is no stenosis. There is no insufficiency. Pulmonic valve - There is no stenosis. There is no insufficiency. GREAT ARTERIES Aorta - Left aortic arch and normal branching pattern is demonstrated. Normal ductal arch seen. Normally related great arteries. Pulmonary arteries - The proximal branch pulmonary arteries are normal. - Main pulmonary artery: The artery is of normal size. Systemic-pulmonary shunts - Patent ductus arteriosus. Normal pulsed wave Doppler pattern. PERICARDIUM - There is no significant pericardial effusion. Impression: Following the echocardiogram, I met with Mrs. Campa to discuss today's findings and recommendations. I reviewed the normal cardiac anatomy, and explained that there is no evidence of significant cardiac disease in the fetus. I explained the limitations of echocardiography in general, including our inability to rule out mild valve abnormalities, smaller VSDs, and persistent patency of the ductus arteriosus or the interatrial communication after . Recommendations: Given the normal findings today, we have not made a follow up appointment for Mrs. Campa in the Heart Clinic. However, should any new concerns arise about the baby's heart either before or after delivery, we would be more than happy to reevaluate the baby at that time. Normal [facility] No Panel Informationon 02-17 Thyroid Stimulating Hormone (TSH) 1.17 uIU/mL 0.358-3.74 [facility] Work Phone: IG, rflx HPV-hion 07-06-2018 DIAGNOSIS [facility] Comment on above: Order Comment: Speci men Comment: [id number] Specimen Comment: Source.............Vagina Specimen Comment: No. of containers..01 ThinPrep Vial Result Comment: NEGA TIVE FOR INTRAEPITHELIAL LESION OR MALIGNANCY. Performed By: #### L 801.4010 #### [place] [address] Note [facility] Comment on above: Order Comment: Speci men Comment: [id number] Specimen Comment: Source.............Vagina Specimen Comment: No. of containers..01 ThinPrep Vial Result Comment: The Pap smear is a screening test designed to aid in the detection of premalignant and malignant conditions of the uterine cervix. It is not a diagnostic procedure and should not be used as the sole means of detecting cervical cancer. Both false-positive and false-negative reports do occur. Performed By: #### L 801.4010 #### [place] [address] Performed By [facility] Comment on above: Order Comment: Speci men Comment: [id number] Specimen Comment: Source.............Vagina Specimen Comment: No. of containers..01 ThinPrep Vial Result Comment: [facility] lalo Roper, Electronics Manufacturer (ASCP) Performed By: #### L 801.4010 #### [place] [address] Spec Adequacy [facility] Comment on above: Order Comment: Speci men Comment: [id number] Specimen Comment: Source.............Vagina Specimen Comment: No. of containers..01 ThinPrep Vial Result Comment: Sati sfactory for evaluation. Endocervical and/or squamous metaplastic cells (endocervical component) are present. Performed By: #### L 801.4010 #### LAB [facility] [place] [address] Test Methodlogy [facility] Comment on above: Order Comment: Speci men Comment: [id number] Specimen Comment: Source.............Vagina Specimen Comment: No. of containers..01 ThinPrep Vial Result Comment: This liquid based ThinPrep(R) pap test was screened with the use of an image guided system. Performed By: #### L 801.4010 #### LAB [facility] [place] [address] Test Ordered Pap(IG), rflx HPV-hi Normal [facility] Comment on above: Order Comment: Speci men Comment: [id number] Specimen Comment: Source.............Vagina Specimen Comment: No. of containers..01 ThinPrep Vial Performed By: #### L 801.4010 #### [place] [address] . . [facility] Comment on above: Order Comment: Speci men Comment: [id number] Specimen Comment: Source.............Vagina Specimen Comment: No. of containers..01 ThinPrep Vial Performed By: #### L 801.4010 #### LAB [facility] ([place] [place] [address] . [facility] Comment on above: Order Comment: Speci men Comment: [id number] Specimen Comment: Source.............Vagina Specimen Comment: No. of containers..01 ThinPrep Vial Result Comment: The HPV DNA reflex criteria were not met with this specimen result therefore, no HPV testing was performed. Performed at: [address] [place] [id number] [employer]: Anju Rogers MD, Phone: [phone] Performed By: #### L 801.4010 #### [place] [address] Formerly [facility] 05-26-2018 [facility] DATE OF SERVICE: 01/2019 CHIEF COMPLAINT: Sinus congestion. HISTORY OF PRESENT ILLNESS: A 32-year-old has sinus congestion, facial ache, postnasal drainage, and cough over the past 2 weeks. A course of azithromycin only minimally improved this. She has had sinus surgery in the past and feels allergies are probably a big part of her symptoms. She is already using Flonase, Claritin, and Singulair. PAST MEDICAL HISTORY: Otherwise remarkable for hypothyroidism. CURRENT MEDICATIONS: As above plus thyroid. ALLERGIES: SULFA. PHYSICAL EXAMINATION: Vital Signs: On examination she is afebrile and vital signs are normal. General: She appears comfortable. HEENT: Fairly unremarkable. There is some complaint of tenderness over the maxillary sinuses. The pharynx is clear. Neck: Without nodes. Chest: Clear. IMPRESSION: Sinusitis and seasonal allergies. PLAN: Medrol Dosepak. Continue Flonase, Singulair, and Claritin. Follow up as needed. Javid Mon MD NW/[id number] [facility] File#: [id number] Verified/Reviewed by 05/30/[address] [facility] PATIENT NAME: HEIDY CAMPA [address] MEDICAL REC #: [id number] [place] [address] [facility] PHYSICIAN [facility] STAT[facility]ARE REPORT [facility] 05-17-2018 [facility] $$NEEDS REVIEW$S - b lank DATE OF SERVICE: 05/17/2018 HISTORY OF PRESENT ILLNESS: This 32-year-old female comes in with sinus congestion and sore throat that has been going on now for the past 2 days. Is having fever. No mucus. ALLERGIES, MEDICATIONS, MEDICAL AND SURGICAL HISTORY: Per nursing assessment sheets. PHYSICAL EXAMINATION: On exam, pupils round and reactive. Ears clear. Tenderness with percussion of maxillary sinuses. Pharyngeal erythema, no exudate or adenopathy. Lungs are clear. Heart sounds without any prominent rub, murmur or bruit. Belly soft. Good color to the periphery. Otherwise stable appearing. IMPRESSION: 1. Sinusitis. 2. Pharyngitis. Antibiotic coverage and discharged. HELDER Patel/[id number] [facility] File#: [id number] [facility] PATIENT NAME: IZAIAHHEIDY KitchenFerdinand Mirna Hayes MEDICAL REC #: [id number] [place] [address] [facility] RE[facility] PHYSICIAN [facility] STATCARE REPORT This is a preliminary report only, as the practitioner review and authentication has not occurred. [facility] URINEon 01-03-2018 EXTERNAL QC DONE? YES Normal [facility] Comment on above: Performed By: #### 2 [id number] ####[facility],[address] [place] [address] INTERNAL QC PASS Normal [facility] Comment on above: Performed By: #### 2 [id number] ####[facility],[address] [place] [address] UR Negative Normal NEGATIVE [facility] Comment on above: Performed By: #### 2 [id number] ####[facility],[address] [place] [address] Free T4on 12-15-2017 T4 free mass conc 1.46 ng/dL Normal 0.93-1.7 [facility] Comment on above: Performed By: #### L 304.0140, L304.0162, L304.0470 ####ML - [facility] [id number] [place] [address] TSHon 12-15-2017 Thyrotropin Qn 2.45 uIU/mL Normal 0.45-4.50 [facility] Comment on above: Performed By: #### L 304.0140, L304.0162, L304.0470 ####[facility] - [facility] [id number] [place] [address] VITAMIN Don 12-15-2017 VITAMIN D 56.7 ng/mL Normal 30-100 [facility] Comment on above: Performed By: #### L 304.0140, L304.0162, L304.0470 ####[facility] - [facility] [id number] [place] [address] SURGICAL PATHOLOGY, CONVERTE Don 11-09-2014 [facility] No Panel Information Group B Streptococcus Culture Group B Beta Streptococcus is not isolated. [facility] Work Phone: Vital Signs Date Time Vital Sign Value Performing Clinician Wayne grande 10-08-2024 11:13-0400 Body height 157.[address] Renetta Toribio MD Work Phone: [facility] 10-08-2024 11:13-0400 Body mass index (BMI) [Ratio] 30.7 kg/m2 Dr. Renetta Toribio MD Work Phone: [facility] 10-08-2024 11:13-0400 Body weight 76.[address] Renetta Toribio MD Work Phone: [facility] 10-08-2024 11:13-0400 Diastolic blood pressure 75 mm[Hg] Dr. Renetta Toribio MD Work Phone: [facility] 10-08-2024 11:13-0400 Systolic blood pressure 111 mm[Hg] Dr. Renetta Toribio MD Work Phone: [facility] 11-05-2022 12:45-[address] [facility] 11-05-2022 12:45-0400 Body temperature 95.9 [degF] [facility] 11-05-2022 12:45-0400 Diastolic Blood Pressure Non-Invasive [address] [facility] 11-05-2022 12:45-0400 Heart rate 56 /min [facility] 11-05-2022 12:45-0400 Mean blood pressure 77 mm[Hg] [facility] 11-05-2022 12:45-0400 Respiratory rate 16 /min [facility] 11-05-2022 12:45-0400 Systolic Blood Pressure Non-Invasive [address] [facility] 11-05-2022 12:32-0400 Body temperature 97.34 [degF] [facility] 11-05-2022 12:32-0400 Diastolic Blood Pressure Non-Invasive [address] [facility] 11-05-2022 12:32-0400 Heart rate 63 /min [facility] [employer] [facility] 11-05-2022 12:32-0400 Respiratory rate 16 /min [facility] [employer] [facility] 11-05-2022 12:32-0400 Systolic Blood Pressure Non-Invasive [address] [facility] [employer] [facility] 11-05-2022 12:31-0400 Heart rate 64 /min [facility] [employer] [facility] 11-05-2022 12:25-0400 Diastolic Blood Pressure Non-Invasive [address] [facility] [employer] [facility] 11-05-2022 12:25-0400 Heart rate 64 /min [facility] [employer] [facility] 11-05-2022 12:25-0400 Mean blood pressure 76 mm[Hg] [facility] [employer] [facility] 11-05-2022 12:25-0400 Systolic Blood Pressure Non-Invasive [address] [facility] [employer] [facility] 11-05-2022 12:20-0400 Respiratory rate 16 /min [facility] [employer] [facility] 11-05-2022 12:03-0400 Body temperature 96.98 [degF] [facility] [employer] [facility] 11-05-2022 12:03-0400 Mean blood pressure 69 mm[Hg] [facility] [employer] [facility] 11-05-2022 11:55-0400 Respiratory Rate - Anes 11 br/min [facility] [employer] [facility] 11-05-2022 11:50-0400 Respiratory Rate - Anes 17 br/min [facility] [employer] [facility] 11-05-2022 11:45-0400 Respiratory Rate - Anes 0 br/min [facility] [employer] [facility] 11-05-2022 11:40-0400 Body temperature 94.62 [degF] [facility] [employer] [facility] 11-05-2022 11:35-0400 Body temperature 94.41 [degF] [facility] [employer] [facility] 11-05-2022 11:30-0400 Body temperature 94.12 [degF] [facility] [employer] [facility] 11-05-2022 08:50-0400 Body height 157.[address] [facility] [employer] [facility] 11-05-2022 08:50-0400 Body weight 78.[address] [facility] [employer] [facility] 11-05-2022 08:50-0400 Heart rate 82 /min [facility] [employer] [facility] 10-22-2022 08:19-0400 Blood Pressure Cuff Size [facility] [employer] [facility] 10-22-2022 08:19-0400 Blood Pressure Location [facility] [employer] [facility] 10-22-2022 08:19-[address] [facility] [employer] [facility] 10-22-2022 08:19-0400 Body height 157.5 cm [facility] 10-22-2022 08:19-0400 Body temperature 98.42 [degF] [facility] [employer] [facility] 10-22-2022 08:19-0400 Body weight 79.3 kg [facility] 10-22-2022 08:19-0400 Diastolic Blood Pressure Non-Invasive 71 1 [facility] 10-22-2022 08:19-0400 Heart rate 74 /min [facility] 10-22-2022 08:19-0400 Systolic Blood Pressure Non-Invasive 103 1 [facility] 10-04-2022 15:20-0400 Body height 157.[address] Renetta Toribio Work Phone: [facility] 10-04-2022 15:20-0400 Body mass index (BMI) [Ratio] 32.4 kg/m2 Dr. Renetta Toribio Work Phone: [facility] 10-04-2022 15:20-0400 Body weight 80.[address] Renetta Toribio Work Phone: [facility] 10-04-2022 15:20-0400 Diastolic blood pressure 62 mm[Hg] Dr. Renetta Toribio Work Phone: [facility] 10-04-2022 15:20-0400 Systolic blood pressure 110 mm[Hg] Dr. Renetta Toribio Work Phone: [facility] 07-31-2021 10:48-0400 Body height 157.[address] Renetta Toribio Work Phone: [facility] Work Phone: 07-31-2021 10:47-0400 Body mass index (BMI) [Ratio] 35.8 kg/m2 Dr. Renetta Toribio Work Phone: [facility] Work Phone: 07-31-2021 10:47-0400 Body weight 88.[address] Renetta Toribio Work Phone: [facility] Work Phone: 07-31-2021 10:47-0400 Diastolic blood pressure 72 mm[Hg] Dr. Renetta Toribio Work Phone: [facility] Work Phone: 07-31-2021 10:47-0400 Systolic blood pressure 110 mm[Hg] Dr. Renetta Toribio Work Phone: [facility] Work Phone: 07-24-2021 09:36-0400 Body mass index (BMI) [Ratio] 35.5 kg/m2 Dr. Renetta Toribio Work Phone: [facility] Work Phone: 07-24-2021 09:36-0400 Body weight 88.[address] Renetta Toribio Work Phone: [facility] Work Phone: 07-24-2021 09:36-0400 Diastolic blood pressure 70 mm[Hg] Dr. Renetta Toribio Work Phone: [facility] Work Phone: 07-24-2021 09:36-0400 Systolic blood pressure 122 mm[Hg] Dr. Renetta Toribio Work Phone: [facility] Work Phone: 07-10-2021 10:02-0400 Body mass index (BMI) [Ratio] 34.9 kg/m2 Dr. Renetta Toribio Work Phone: [facility] Work Phone: 07-10-2021 10:02-0400 Body weight 86.[address] Renetta Toribio Work Phone: [facility] Work Phone: 07-10-2021 10:02-0400 Diastolic blood pressure 68 mm[Hg] Dr. Renetta Toribio Work Phone: [facility] Work Phone: 07-10-2021 10:02-0400 Systolic blood pressure 120 mm[Hg] Dr. Renetta Toribio Work Phone: [facility] Work Phone: 06-22-2021 10:05-0400 Body mass index (BMI) [Ratio] 34.4 kg/m2 Dr. Renetta Toribio Work Phone: [facility] Work Phone: 06-22-2021 10:05-0400 Body weight 85.[address] Renetta Toribio Work Phone: [facility] Work Phone: 06-22-2021 10:05-0400 Diastolic blood pressure 80 mm[Hg] Dr. Renetta Toribio Work Phone: [facility] Work Phone: 06-22-2021 10:05-0400 Systolic blood pressure 132 mm[Hg] Dr. Renetta Toribio Work Phone: [facility] Work Phone: 06-02-2021 15:01-0400 Body mass index (BMI) [Ratio] 34.2 kg/m2 Dr. Renetta Toribio Work Phone: [facility] Work Phone: 06-02-2021 15:01-0400 Body weight 84.[address] Renetta Toribio Work Phone: [facility] Work Phone: 06-02-2021 15:01-0400 Diastolic blood pressure 62 mm[Hg] Dr. Renetta Toribio Work Phone: [facility] Work Phone: 06-02-2021 15:01-0400 Systolic blood pressure 110 mm[Hg] Dr. Renetta Toribio Work Phone: [facility] Work Phone: 06-02-2021 15:01-0400 Body height 157.48 cm No Primary Care Physician [facility] Work Phone: 06-02-2021 15:01-0400 Body mass index (BMI) [Ratio] 34.2 kg/m2 No Primary Care Physician [facility] Work Phone: 06-02-2021 15:01-0400 Body weight 84.93 kg No Primary Care Physician [facility] Work Phone: 06-02-2021 15:01-0400 Diastolic blood pressure 62 mm[Hg] No Primary Care Physician [facility] Work Phone: 06-02-2021 15:01-0400 Systolic blood pressure 110 mm[Hg] No Primary Care Physician [facility] Work Phone: 05-11-2021 14:08-0400 Body mass index (BMI) [Ratio] 33.5 kg/m2 Dr. Renetta Toribio Work Phone: [facility] Work Phone: 05-11-2021 14:08-0400 Body weight [address] Renetta Toribio Work Phone: [facility] Work Phone: 05-11-2021 14:08-0400 Diastolic blood pressure 72 mm[Hg] Dr. Renetta Toribio Work Phone: [facility] Work Phone: 05-11-2021 14:08-0400 Systolic blood pressure 118 mm[Hg] Dr. Renetta Toribio Work Phone: [facility] Work Phone: 05-11-2021 14:08-0400 Body mass index (BMI) [Ratio] 33.5 kg/m2 No Primary Care Physician [facility] Work Phone: 05-11-2021 14:08-0400 Body weight 83 kg No Primary Care Physician [facility] Work Phone: 05-11-2021 14:08-0400 Diastolic blood pressure 72 mm[Hg] No Primary Care Physician [facility] Work Phone: 05-11-2021 14:08-0400 Systolic blood pressure 118 mm[Hg] No Primary Care Physician [facility] Work Phone: 04-13-2021 16:15-0500 Body mass index (BMI) [Ratio] 32.9 kg/m2 Dr. Renetta Toribio Work Phone: [facility] Work Phone: 04-13-2021 16:15-0500 Body weight 81.[address] Renetta Toribio Work Phone: [facility] Work Phone: 04-13-2021 16:15-0500 Diastolic blood pressure 66 mm[Hg] Dr. Renetta Toribio Work Phone: [facility] Work Phone: 04-13-2021 16:15-0500 Systolic blood pressure 102 mm[Hg] Dr. Reentta Toribio Work Phone: [facility] Work Phone: 04-13-2021 15:15-0500 Body mass index (BMI) [Ratio] 32.9 kg/m2 No Primary Care Physician [facility] Work Phone: 04-13-2021 15:15-0500 Body weight 81.64 kg No Primary Care Physician [facility] Work Phone: 04-13-2021 15:15-0500 Diastolic blood pressure 66 mm[Hg] No Primary Care Physician [facility] Work Phone: 04-13-2021 15:15-0500 Systolic blood pressure 102 mm[Hg] No Primary Care Physician [facility] Work Phone: 03-16-2021 13:31-0500 Diastolic blood pressure 70 mm[Hg] No Primary Care Physician [facility] Work Phone: 03-16-2021 13:31-0500 Systolic blood pressure 112 mm[Hg] No Primary Care Physician [facility] Work Phone: 03-16-2021 13:13-0500 Body mass index (BMI) [Ratio] 32.3 kg/m2 No Primary Care Physician [facility] Work Phone: 03-16-2021 13:13-0500 Body weight 80.28 kg No Primary Care Physician [facility] Work Phone: 02-17-2021 12:37-0500 Body mass index (BMI) [Ratio] 32.8 kg/m2 No Primary Care Physician [facility] Work Phone: 02-17-2021 12:37-0500 Body weight 81.41 kg No Primary Care Physician [facility] Work Phone: 02-17-2021 12:37-0500 Diastolic blood pressure 72 mm[Hg] No Primary Care Physician [facility] Work Phone: 02-17-2021 12:37-0500 Systolic blood pressure 126 mm[Hg] No Primary Care Physician [facility] Work Phone: Encounters Encounter Date Encounter Type Care Provider Facility Start: 10-08-2024 Encounter for gynecological examination (general) (routine) without abnormal findings Renetta Toribio [facility] Start: 10-08-2024 End: 10-08-[address] Renetta Toribio MD [place] Work Phone: Start: 10-08-2024 End: 10-08-[address] Renetta Toribio MD [facility] Start: 10-08-2024 End: 10-08-[address] Renetta Toribio MD Work Phone: [place] Start: 10-08-2024 End: 10-08-2024 ambulatory Renetta Toribio Facility:[facility] Start: 07-24-2024 End: 07-24-2024 ambulatory DEJUAN GONZALEZ [employer] ASSOCI[employer] PROFESSOR-ROTATING FIELD ASSEMBLER Facility:A Start: 07-16-2024 End: 07-16-2024 ambulatory DEJUAN GONZALEZ FOREST PATHOLOGY ASSOCIATE PROFESSOR-ROTATING FIELD ASSEMBLER Facility:A Start: 05-04-2024 End: 05-04-2024 ambulatory DEJUAN CARLOS FOREST PATHOLOGY ASSOCIATE PROFESSOR-ROTATING FIELD ASSEMBLER Facility:[facility] Start: 07-18-2023 End: 07-18-2023 ambulatory DEJUAN GONZALEZ FOREST PATHOLOGY ASSOCIATE PROFESSOR-ROTATING FIELD ASSEMBLER Facility:A Start: 11-18-2022 End: 11-18-2022 ambulatory [facility] Facility:A Start: 11-05-2022 End: 11-05-2022 ambulatory [facility] Facility:A Start: 11-05-2022 End: 11-05-[address] [facility] [place] Start: 10-22-2022 End: 10-22-2022 Admission to [facility] [place] Start: 10-22-2022 End: 10-22-2022 ambulatory [facility] Facility:A Start: 10-14-2022 End: 10-14-2022 ambulatory [facility] Facility:A Start: 10-04-2022 End: 10-04-[address] Renetta Toribio Work Phone: [facility] Work Phone: Start: 10-04-2022 End: 10-04-[address] Renetta Toribio Work Phone: [facility] Work Phone: Start: 10-04-2022 End: 10-04-[address] Renetta Toribio Work Phone: [facility] Work Phone: Start: 09-10-2022 End: 09-14-2022 ambulatory DEJUAN GONZALEZ FOREST PATHOLOGY ASSOCIATE PROFESSOR-ROTATING FIELD ASSEMBLER Facility:A Start: 08-03-2022 End: 08-03-2022 ambulatory [facility] Facility:A Start: 08-03-2022 End: 08-03-2022 Patient encounter procedure [facility] [place] Start: 07-31-2021 End: 07-31-[address] Renetta Toribio Work Phone: [facility] Start: 07-31-2021 End: 07-31-[address] [facility] Start: 07-29-2021 End: 07-29-[address] Ren[facility]ib[facility] Start: 07-24-2021 End: 07-24-[address] Renetta Toribio Work Phone: [facility] Start: 07-10-2021 End: 07-10-[address] Renetta Toribio Work Phone: [facility] Start: 07-01-2021 End: 07-01-[address] Renetta Toribio [facility] Start: 06-22-2021 End: 06-22-[address] Renetta Toribio Work Phone: [facility] Start: 06-02-2021 End: 06-02-2021 Patient encounter procedure No Primary Care Physician [facility] Start: 05-11-2021 End: 05-11-2021 Patient encounter procedure No Primary Care Physician [facility] Start: 04-13-2021 End: 04-13-2021 Patient encounter procedure No Primary Care Physician [facility] Start: 03-16-2021 End: 03-16-2021 Patient encounter procedure No Primary Care Physician [facility] Start: 02-17-2021 End: 02-17-2021 Patient encounter procedure No Primary Care Physician [facility] Start: 02-17-2021 End: 02-17-2021 Patient encounter procedure No Primary Care Physician [facility] Start: 05-26-2018 Patient encounter procedure Javid Mon Facility:[facility] Start: 05-17-2018 Patient encounter procedure Damon Ponce Facility:[facility] Start: 01-03-2018 End: 01-03-2018 Patient encounter procedure MADELYN PUGH [facility] Start: 12-15-2017 Patient encounter procedure GIBRAN KING Facility:[facility] Start: 11-11-2014 Documentation procedure Jonah Carrington MD Work Phone: [facility] Start: 11-11-2014 Historic EMR Jonah Carrington MD Work Phone: [facility] Procedures Date Procedure Procedure Detail Performing Clinician Start: 10-08-2024 Liquid based cervica l cytology screening Dr. Renetta Toribio MD Work Phone: Comment on above: NEGATIVE FOR INTRAEP ITHELIAL LESION OR MALIGNANCY. This liquid based Th inPrep(R) pap test was screened withthe use of an image guided system. Start: 07-29-2021 Ultrasound scan for growth Dr. Renetta Toribio Work Phone: Start: 07-01-2021 Ultrasound scan for growth Dr. Renetta Toribio Work Phone: Start: 09-25-2017 Excision of lipoma ELSW ORTH [employer] Comment on above: upper buttock Start: 09-25-2017 Mass (morphologic abnormality) ELSWORTH Seelio DO Start: 02-14-2017 Endoscopic balloon dilatation of ostium of paranasal sinus ELSWORTH Seelio DO Start: 02-14-2017 Other (qualifier value) ELSWORTH Seelio DO Comment on above: sinus surgery proced ure Start: 11-09-2014 SURGICAL PATHOLOGY, CONVERTED Jonah Carrington MD Work Phone: Start: 10-15-2014 section ELSWOR TH Seelio DO Start: 02-14-2011 Laser assisted in si tu keratomileusis [facility] DO Start: 02-14-2011 Other (qualifier value) [facility] [employer] Comment on above: lasix Start: 02-15-2008 Surgical removal of impacted third molar tooth [facility] [employer] B Streptococcu s Culture Dr. Renetta Toribio Work Phone: H/O: section History of delivery No Primary Care Physician Comment on above: previous cs for NRFH Ts. successful 03/2020 Plan of Treatment Date Care Activity Detail Author Start: 10-04-2022 Dehydroepiandrostero ne sulfate (DHEA-S) [Mass/volume] in Serum or Plasma [facility] Start: 10-04-2022 Testosterone Free [M ass/volume] in Serum or Plasma [facility] Liquid based cervica l cytology screening [facility] Work Phone: Immunizations Immunization Date Immunization Notes Care Provider Fa cility 06-02-2021 diphtheria, tetanus toxoids and acellular pertussis vaccine, unspecified formulation No Primary Care Physician [facility] Work Phone: 06-02-2021 tetanus toxoid, redu melvina diphtheria toxoid, and acellular pertussis vaccine, adsorbed No Primary Care Physician [facility] 01-21-2021 SARS-CoV-2 mRNA (tozinameran) vaccine [facility] [employer] [facility] 12-22-2020 influenza virus vaccine, unspecified formulation [facility] [employer] [facility] 04-03-2020 SARS-CoV-2 (COVID-19 ) mRNA-12[address] [facility] [employer] [facility] 02-27-2020 Covid (Moderna) No Primary C are Physician [facility] 01-14-2020 tetanus toxoid, redu melvina diphtheria toxoid, and acellular pertussis vaccine, adsorbed No Primary Care Physician [facility] 01-14-2020 diphtheria, tetanus toxoids and acellular pertussis vaccine, unspecified formulation No Primary Care Physician [facility] Work Phone: 11-26-2019 Flucelvax Quad (PF) (flu vac qs 2020(4 yr up)CD(PF)) 60 mcg (15 mcg x No Primary Care Physician [facility] Work Phone: 11-26-2019 influenza virus vaccine, unspecified formulation [facility] DO [facility] 11-26-2019 influenza, injectable,quadrivalent , preservative free, pediatric No Primary Care Physician [facility] Payers Date Payer Category Payer Self-pay [id number] 2024 Unknown [id number] 2017 Unknown [id number] 1986 Unknown [id number] 2.16.84 [id number] 1986 Unknown [id number] 2.16.8 [id number] 1986 Unknown [id number] 2.16.8 [id number] 1986 Unknown [id number] 2.16.8 [id number] 1986 Unknown [id number] 2.16.8 [id number] 1986 Unknown [id number] 2.16.8 [id number] 1986 Unknown [id number] 2.16.8 [id number] 1986 Unknown [id number] 2.16.8 [id number] 1986 Unknown [id number] 2.16.8 [id number] 1986 Unknown [id number] 2.16. [id number] 1986 Unknown [id number] 2.16.8 [id number] Unknown [id number] 2.16.8 [id number] Unknown [id number] 2.16.8 [id number] Unknown [id number] 2.16.8 [id number] Unknown [id number] 2.16.8 [id number] Unknown [id number] 2.16.8 [id number] Social History Date Type Detail Facility Start: 06-02-2021 End: 10-04-2022 Tobacco smoking status NHIS Unknown if ever smoked [facility] Start: 1985 Sex Assigned At Female A [facility] Start: 07-25-2019 End: 10-08-2024 Tobacco smoking status Never smoked tobacco (finding) [facility] Start: 1985 Sex Assigned At Not on file [facility] Gender identity Not on file [facility] Functional Status Date Assessment Result Facility 11-05-2022 Functional Status ice on [facility] 11-05-2022 Functional Status Maintained [facility] 10-22-2022 Functional Status Sensory Deficits None A [facility] Mental Status Date Assessment Result Facility 11-05-2022 Mental Status Oriented x 4 [facility] Clinical Notes 04-01-2021 to 10-08-2024 Note Date & Type Note Facility 10-08-2024 Evaluation note Diagnosis Onset Date Resolution Secondary oligomenorrhea acute October 08, 2024 11:10am Stress incontinence acute Augus t 2024 11:10am Encounter for routine gynecological examination noneactive October 08 11:10am [facility] Work Phone: [phone]) 261-730408-25-2025 [facility] [address], [address] [place] [address] OFFICE VISIT Date of Service: 10/08/24 MR#: [id number] Acct: [id number] Name: HEIDY CAMPA Rep #: [id number] : 1985 Provider: Dr. 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: No Is patient in pain?: No Allergies Sulfa (Sulfonamide Antibiotics) Allergy (Mild, Verified 10/08/24 11:15) hives Medications ?Medication ?Instructions ?Recorded ?Confirmed ?Type levothyroxine 88 mcg capsule 88 mcg PO QDAY 10/08/24 0 10/08/24 History liothyronine 50 mcg tablet 100 mcg PO QDAY 10/08/24 History progesterone micronized 100 mg 100 mg PO QAM 10/08/24 10/08/24 History capsule Is last menstrual period known: Yes Last Menstrual Period: 10/01/24 Post menopausal: No Patient : No : No PFSH Medical History Vaginal after Depression Lab test positive for detection of COVID-19 virus Nuchal fold thickening on ultrasound Chronic sinus infection Thyroid disorder Surgical History [place] teeth removed Hx of LASIK delivery delivered H/O rhinoplasty Family History Mother Hypertension Hyperlipidemia TIA (transient ischemic attack) Father Hypertension Grandmother Uterine cancer, Onset Age: 60 Grandfather Cancer stomach cancer (paternal) Social History (Updated 10/08/24 @ 11:17 by Christina Banda) household members: family housing: house number of children: 3 current occupational status: employed 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 Date Name GA/Weeks Outcome Route Bth Weight Infant Gen Labor Lgth Anesthesia Del Locatn Provider FOB Unknown Rama 11/09/2014 40 live - full term 7lbs 1o z Female spinal [facility] Carrington 03/26/20 Low 38 live - full term 7lbs 1oz Male 11 hours epidural [facility] GP 08/18/21 [place] 39 live - full term Male [facility] Dr. Toribio Delivery Date: Last Updated by: Renetta Toribio MD NST Decels, spontaneous ROM, Pitocin decels Delivery Date: 03/26/20 Last Updated by: Seble Dodson Laceration: Midline, Perineal Extension/lac, 2nd degree; nuchal cord loose HPI Encounter for routine gynecological examination Details: HEIDY CAMPA is a 39 year old who presents for annual exam. Last PAP: 09/03/2019 - normal History of abnormal PAP: Last mammogram: not due History of abnormal mammogram: Colon cancer screening: not due Other preventative health care screenings: PCP Carlos Hutchison). 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 Female Reproductive History Last Menstrual Period: 10/01/24 Cycle Length: 21-35 Bleeding Duration: 5 Questions: metrorrhagia: No, sexually active: Yes, dyspareunia: No and PCB: No Menopausal Symptoms: Yes hot flashes, No night sweats, No weight change, No moodchanges, No difficulty concentrating, No sleep problems and No change in libido ROS Const Constitutional: Reports as per HPI; Denies fatigue, increased appetite, poor appetite, night sweats, weight gain or weight loss Cardio Card: Denies chest pain Resp Resp: Denies cough or dyspnea GI GI: Reports as per HPI and bloating; Denies abdominal pain, constipation, nausea or vomiting : Reports as per HPI, hot flashes, urinary incontinence and other; Denies difficulty voiding, dysuria, hematuria, nipple discharge, pelvic pain, prolapse symptoms, urinary frequency, urinary urgency, vaginal discharge, vaginal dryness, vaginal odor or vaginal pruritus Skin Skin/Breast: Denies changing lesions, breast mass, breast pain, breast skin changes or nipple discharge Psych Psych: Denies anxiety, change in libido, depression or difficulty concentrating Exam Const General: cooperative, healthy appearing, comfortable, no acute distress, well developed and well groomed [facility] Head: normal to inspection and normocephalic Ears: hearing grossly normal bilaterally and external ears normal Nose: external nose normal Face and sinus: normal facial exam Neck Neck: normal visual inspection, full ROM and no lymphadenopathy Thyroid: thyroid normal Chest Chest palpation & inspection: normal inspection of the chest Breast inspection: normal inspection of the breasts and normal inspection of theaxillae Breast palpation: normal palpation of the breasts, normal palpation of the axillae and no axillary lymphadenopathy Resp Effort & Inspection: normal respiratory effort GI Inspection: normal to inspection and non-distended Palpation: soft, no hepatosplenomegaly and no guarding General: bladder normal to palpation External Female Exam: normal external appearance, normal appearance of the urethra and no lesions Urethra: normal appearance of the urethra and normal palpation Speculum Exam - Vagina: normal appearance of the vagina and normal vaginal discharge Speculum Exam - Cervix: normal appearance of the cervix, no cervical discharge, no lesions and nontender Bimanual Exam- Vagina & Uterus: normal bimanual exam, uterine size normal, bladder normal to palpation, No tender, uterine mobility normal, consistency normal, non-tender and no cervical motion tenderness Bimanual Exam- Adnexa, other: normal adnexae, no masses and non-tender Skin General: no rashes or lesions noted Neuro General: patient alert, moves all extremities and no focal motor deficits Extrem General: normal to inspection and no pedal edema Psych Appearance: grossly normal Mental Status: mental status grossly normal Affect: normal affect Speech and Movement: speech and movement normal Attitude: cooperative Coding Level of Care Code Off vis,est,prev 18-39yrs Diagnoses Encounter for gynecological examination without abnormal finding Z01.419 Gynecological examination findings: abnormal findings ABSENT Secondary oligomenorrhea N91.4 Stress incontinence N39.3 Assessment and Plan Assessment and Plan (1) Encounter for routine gynecological examination: Qualifiers: Gynecological examination findings: abnormal findings ABSENT Qualified Code(s): Z01.419 - Encounterfor gynecological examination (general) (routine) without abnormal findings (2) Secondary oligomenorrhea: Status: Acute Comment: sees myobgyn, on bioidentical progesterone, discussed slynd or prometrium. (3) Stress incontinence: Status: Acute Comment: pfpt recommended Orders: Orders PAP IG HPV APTIMA 16/18,45 Today Z12.4 - Encounter for screening for malignant neoplasm of cervix Plan Cervical cancer screening: pap done Breast cancer screening: mamm age 40 other health maintenance examination reviewed and orders placed if needed. Encouraged maintenance of a healthy weight and active lifestyle and handout given. Annual exam handout including recommendations for good health guidelines, Calcium/vitamin D recommendations, and basic screening information given. Problem list up to date, see problem list details for any additional plan information. Follow up in one year for annual health maintenance exam or sooner if needed. 10/08/24 1145 lucretia RODRIGUEZ> Date _ Renetta Toribio MD Cosign Signature: Date (if applicable) CC: ~ [facility]09-22-2023 Hospital Discharge instructions Patient Education 11/05/2022 12:55:13 Lipoma Removal, Care After Lipoma Removal, Care After Refer to this sheet in the next few weeks. These instructions provide you with information about caring for yourself after your procedure. Your health care provider may also give you more specific instructions. Your treatment has been planned according to current medical practices, but problems sometimes occur. Call your health care provider if you have any problems or questions after your procedure. What can I expect after the procedure? After the procedure, it is common to have: Mild pain. Swelling. Bruising. Follow these instructions at home: Bathing Do not take baths, swim, or use a hot tub until your health care provider approves. Ask your healthcare provider if you can take showers. You may only be allowed to take sponge baths for bathing. Keep your bandage (dressing) dry until your health care provider says it can be removed. Incision care Follow instructions from your health care provider about how to take care of your incision. Make sure you: ?Wash your hands with soap and water before you change your bandage (dressing). If soap and water are not available, use hand biology manager. ?Change your dressing as told by your health care provider. ?Leave stitches (sutures), skin glue, or adhesive strips in place. These skin closures may need to stay in place for 2 weeks or longer. If adhesive strip edges start to loosen and curl up, you may trim the loose edges. Do not remove adhesive strips completely unless your health care provider tells you to do that. Check your incision area every day for signs of infection. Check for: ?More redness, swelling, or pain. ?Fluid or blood. ?Warmth. ?Pus or a bad smell. Driving Do not drive or operate heavy machinery while taking prescription pain medicine. Do not drive for 24 hours if you received a medicine to help you relax (sedative) during your procedure. Ask your health care provider when it is safe for you to drive. General instructions Take [id number] and prescription medicines only as told by your health care provider. Do not use any tobacco products, such as cigarettes, chewing tobacco, and e- cigarettes. These can delay healing. If you need help quitting, ask your health care provider. Return to your normal activities as told by your health care provider. Ask your health care provider what activities are safe for you. Keep all follow-up visits as told by your health care provider. This is important. Contact a health care provider if: You have more redness, swelling, or pain around your incision. You have fluid or blood coming from your incision. Your incision feels warm to the touch. You have pus or a bad smell coming from your incision. You have pain that does not get better with medicine. Get help right away if: You have chills or a fever. You have severe pain. This information is not intended to replace advice given to you by your health care provider. Make sure you discuss any questions you have with your health care provider. Document Released: 04/15/2016 Document Revised: 09/23/2016 Document Reviewed: 04/15/2016 [employer] Patient Education 2020 [employer] Follow Up Care 10/14/2022 16:12:37 With:RODO VALERO DO, Surgery Address: [address] [place] [address] [place] [address] [phone] When: Unknown Comments:In 2 weeks [facility] 09-22-2023 Summary of episode note Discharge Instructions Thank you for allowing [facility] to assist you with your healthcare needs. The following is importantdischarge information regarding your hospital visit. Your Care Team DEJUAN GONZALEZ Your Diagnosis Post-op pain What to do next Scheduled Follow-Up Appointments Appointment Type When With Where Contact InformationPC Nurse Lab 07/18/2023 09:15 AM EDT [facility] [address] [place] [address] PC Wellness Annual w/Labs 07/25/2023 10:00 AM EDT DEJUAN GONZALEZ [facility] [address] [place] [phone] Follow Up Appointments Follow Up with RODO VALERO DO, Surgery When Why: In 2 weeks Where: [address] [facility] [address] [facility] [place] [phone] The Following Activity and Diet Have Been Ordered for You Discharge Activity - Ordered -- May Shower, No bath/pool, no strenuous activity, 11/05/22 12:18:00 EDT Discharge Diet - Ordered -- Type of Diet: Regular, 11/05/22 12:18:00 EDT The Following Equipment Has Been Ordered for You Discharge Home Equipment Discharge Wound Care - Ordered -- No Wound Care Needed, 11/05/22 12:18:00 EDT Allergies sulfa drugs (Hives) Medications Please ask your primary doctor or pharmacist before taking any other medication not listed, including over the counter drugs, herbal medications, vitamins and or supplements as they may interact withyour home medications. What How Much When Why Instructions Last Dose New acetaminophen-hydrocodone (Hondo 325- 5 mg oral tablet) 1 tab(s) by mouth Every 4 hours as needed for as needed for pain Post-op pain Duration: 2 Days Pickup at [id number] Unchanged levothyroxine (levothyroxine 100 mcg (0.1 mg) oral tablet) 1 tab(s) by mouth Once a day (in the morning) Unchanged multivitamin (Multiple Vitamins oral capsule) 1 cap by mouth Once a day Pharmacy Information [id number]: [address] [place], [place] [phone] Please take this list to your next doctor s visit. Bring all medications you take, including over the counter medications, herbals and other supplements with you to your doctor s visit. Patients and families are reminded to discard old lists and to update any records with all medication providers or retail pharmacies. Education Materials Lipoma Removal, Care After Refer to this sheet in the next few weeks. These instructions provide you with information about caring for yourself after your procedure. Your health care provider may also give you more specific instructions. Your treatment has been planned according to current medical practices, but problems sometimes occur. Call your health care provider if you have any problems or questions after your procedure. What can I expect after the procedure? After the procedure, it is common to have: Mild pain. Swelling. Bruising. Follow these instructions at home: Bathing Do not take baths, swim, or use a hot tub until your health care provider approves. Ask your healthcare provider if you can take showers. You may only be allowed to take sponge baths for bathing. Keep your bandage (dressing) dry until your health care provider says it can be removed. Incision care Follow instructions from your health care provider about how to take care of your incision. Make sure you: ? Wash your hands with soap and water before you change your bandage (dressing). If soap and water are not available, use hand biology manager. ? Change your dressing as told by your health care provider. ? Leave stitches (sutures), skin glue, or adhesive strips in place. These skin closures may need to stay in place for 2 weeks or longer. If adhesive strip edges start to loosen and curl up, you may trim the loose edges. Do not remove adhesive strips completely unless your health care provider tells you to do that. Check your incision area every day for signs of infection. Check for: ? More redness, swelling, or pain. ? Fluid or blood. ? Warmth. ? Pus or a bad smell. Driving Do not drive or operate heavy machinery while taking prescription pain medicine. Do not drive for 24 hours if you received a medicine to help you relax (sedative) during your procedure. Ask your health care provider when it is safe for you to drive. General instructions Take lckb-iac-zkvayln and prescription medicines only as told by your health care provider. Do not use any tobacco products, such as cigarettes, chewing tobacco, and e- cigarettes. These can delay healing. If you need help quitting, ask your health care provider. Return to your normal activities as told by your health care provider. Ask your health care provider what activities are safe for you. Keep all follow-up visits as told by your health care provider. This is important. Contact a health care provider if: You have more redness, swelling, or pain around your incision. You have fluid or blood coming from your incision. Your incision feels warm to the touch. You have pus or a bad smell coming from your incision. You have pain that does not get better with medicine. Get help right away if: You have chills or a fever. You have severe pain. This information is not intended to replace advice given to you by your health care provider. Make sure you discuss any questions you have with your health care provider. Document Released: 04/15/2016 Document Revised: 09/23/2016 Document Reviewed: 04/15/2016 [employer] Patient Education 2020 [employer] Additional Information VACCINATE! IT SAVES LIVES! Members of the community who have not yet received the COVID-19 vaccine and would like to receive it can visit one of [facility] vaccine clinics. There are many vaccine clinic locations within the [facility]. For locations and available times, please visit https://gettheshot.coronavirus.[place].gov/. It is important to note that some COVID mobile vaccine clinics are held outdoors and may be canceled in rainy or stormy conditions. To learn more about pediatric vaccinations (ages 5-11), we invite you to visit the [facility] webpage. [email or web address]/[email or web address]-[email or web address]-[email or web address]-[email or web address] stions.htmlTo learn more about the COVID-19 vaccine, we invite you to visit the CDC website for a list of frequently asked questions.https://www.cdc.gov/coronavirus/2019-ncov/vaccines/faq.html [facility] Patient Portal Access Instructions: Stay connected with your healthcare team and access your personal medical information anytime with the [facility] Patient Portal. Please follow the directions below to create your [facility] account: 1.Access the email account you provided upon registration to the hospital/physician office.2.Look for an invitation email from [facility].3.Open the email and access the invitation link: AcceptInvitation to [facility].4.Fill in the required amaya to create your account. To access your account, visit [email or web address]. Click the blue button labeled "Access Patient Portal" and then log in with the username and password that you created in the steps above. You will be able to view your test results, lab results, a summary of your visits, upcoming appointments and more. There is also a convenient messaging option where you can send secure messages to your p rovider. In addition, you will have the ability to download any documents or summaries to your computer and/or send the information securely to a physician. Remember that your healthcare information is confidential, so carefully consider who you will allowto register on the [facility] Patient Portal for access to your information. You can also access the [facility] Patient Portal on the [facility] aleksandra. Simply click on "Patient Portal" and then log into your account. If you would like to receive a full copy of your medical records, please contact the [facility] Medical Records Department by calling [phone], Tuesday through Tuesday between 8 a.m. and 4:30 p.m. HOW TO SAFELY DISPOSE OF PRESCRIPTION MEDICATIONS Please use one of the following methods to safely dispose of your unused medications. 1.Use a drug disposal kit: the drug disposal pouch allows you to safely discard your old and unuseddrugs. Ask your nurse to give you one when you are discharged.2.Visit a local take-back location: Many local pharmacies and police departments have programs that collect old and unwanted prescriptiondrugs. Call your local pharmacy or go to http://bit.ly/9Y8Il3n to find one close to you.3.Make use of household items: Use cat litter or old coffee grounds to dispose medications if other options arenot available. Mix your drugs with these household products, seal them in an airtight container andthrow it into the garbage. Call [facility]: [phone] to be sure your drugs can be disposed of in this way. Some medicines may require a different approach.4.Never flush your medications down the toilet. IF YOU HAVE BEEN PRESCRIBED AN OPIOID FOR PAIN If you have been prescribed an opioid (such as hydrocodone, oxycodone or morphine), it is critical to understand the possible side effects and risks of opioid pain medications. Even when taken as directed, opioids can have several side effects including: Tolerance, meaning you might need to take more of a medication for the same pain relief. Nausea, vomiting and/or constipation. Sleepiness, dizziness, dry mouth, confusion, depression or itching. Physical dependence, meaning you have withdrawal symptoms when a medication is stopped, can develop within a few days. KNOW YOUR RESPONSIBILITIES It is important to know exactly how much and how often to take the opioid pain medications you are prescribed. Never take opioids in higher amounts or more often than prescribed. Do not combine opioids with alcohol or other drugs that cause drowsiness, such as benzodiazepines, also known as benzos, including diazepam and alprazolam, muscle relaxants or sleep aids. Never sell or share prescription opioids. This is illegal. Store opioids in a secure place and out of reach of others (including children, family, friends and visitors). The last page of this document has been signed and retained as a CHART COPY. Signatures Patient Education Materials Lipoma Removal, Care After Medication Leaflets My discharge plan and instructions have been reviewed and explained to me and I,HEIDY CAMPA understand my current condition and have read and understand these discharge instructions. I have received a written copy of the plan/instructions. If I have questions, I am aware that I should contact my doctor. 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 Patient location: PACU. Assessment Postanesthesia assessment Vitals: Vital signs from flowsheet : Vital Signs 11/05/2022 12:32 EDT Temperature Temporal Artery 36.3 DegC Heart Rate Monitored 63 bpm Respiratory Rate 16 br/min Systolic Blood Pressure Non-Invasive 95 mmHg Diastolic Blood Pressure Non-Invasive 67 mmHg 11/05/2022 12:31 EDT Heart Rate Monitored 64 bpm 11/05/2022 12:25 EDT Heart Rate Monitored 64 bpm Systolic Blood Pressure Non-Invasive 99 mmHg Diastolic Blood Pressure Non-Invasive 65 mmHg Mean Arterial Pressure (NBP) 76 mmHg 11/05/2022 12:20 EDT Heart Rate Monitored 63 bpm Respiratory Rate 16 br/min Systolic Blood Pressure Non-Invasive 99 mmHg Diastolic Blood Pressure Non-Invasive 65 mmHg 11/05/2022 12:03 EDT Temperature Temporal Artery 36.1 DegC Heart Rate Monitored 72 bpm Respiratory Rate 12 br/min LOW Systolic Blood Pressure Non-Invasive 94 mmHg Diastolic Blood Pressure Non-Invasive 57 mmHg LOW Mean Arterial Pressure (NBP) 69 mmHg 11/05/2022 11:56 EDT Systolic Blood Pressure Non-Invasive 107 mmHg mmHg Diastolic Blood Pressure Non-Invasive 67 mmHg mmHg 11/05/2022 11:55 EDT Heart Rate Monitored 75 bpm bpm Respiratory Rate - Anes 11 br/min br/min 11/05/2022 11:53 EDT Systolic Blood Pressure Non-Invasive 110 mmHg mmHg Diastolic Blood Pressure Non-Invasive 73 mmHg mmHg 11/05/2022 11:50 EDT Heart Rate Monitored 70 bpm bpm Respiratory Rate - Anes 17 br/min br/min Systolic Blood Pressure Non-Invasive 105 mmHg mmHg Diastolic Blood Pressure Non-Invasive 70 mmHg mmHg 11/05/2022 11:47 EDT Systolic Blood Pressure Non-Invasive 113 mmHg mmHg Diastolic Blood Pressure Non-Invasive 79 mmHg mmHg 11/05/2022 11:46 EDT Systolic Blood Pressure Non-Invasive 113 mmHg mmHg 11/05/2022 11:45 EDT Heart Rate Monitored 80 bpm bpm Respiratory Rate - Anes 0 br/min br/min 11/05/2022 11:42 EDT Systolic Blood Pressure Non-Invasive 107 mmHg mmHg Diastolic Blood Pressure Non-Invasive 63 mmHg mmHg 11/05/2022 11:40 EDT Temperature (Route Not Specified) 34.79 DegC DegC Heart Rate Monitored 77 bpm bpm Respiratory Rate - Anes 18 br/min br/min 11/05/2022 11:39 EDT Systolic Blood Pressure Non-Invasive 105 mmHg mmHg Diastolic Blood Pressure Non-Invasive 56 mmHg mmHg 11/05/2022 11:36 EDT Systolic Blood Pressure Non-Invasive 103 mmHg mmHg Diastolic Blood Pressure Non-Invasive 52 mmHg mmHg 11/05/2022 11:35 EDT Temperature (Route Not Specified) 34.67 DegC DegC Heart Rate Monitored 77 bpm bpm Respiratory Rate - Anes 16 br/min br/min 11/05/2022 11:33 EDT Systolic Blood Pressure Non-Invasive 107 mmHg mmHg Diastolic Blood Pressure Non-Invasive 50 mmHg mmHg 11/05/2022 11:30 EDT Temperature (Route Not Specified) 34.51 DegC DegC Heart Rate Monitored 78 bpm bpm Respiratory Rate - Anes 16 br/min br/min Systolic Blood Pressure Non-Invasive 102 mmHg mmHg Diastolic Blood Pressure Non-Invasive 54 mmHg mmHg 11/05/2022 11:27 EDT Systolic Blood Pressure Non-Invasive 100 mmHg mmHg Diastolic Blood Pressure Non-Invasive 58 mmHg mmHg 11/05/2022 11:25 EDT Temperature (Route Not Specified) 34.47 DegC DegC Heart Rate Monitored 77 bpm bpm Respiratory Rate - Anes 17 br/min br/min 11/05/2022 11:24 EDT Systolic Blood Pressure Non-Invasive 100 mmHg mmHg Diastolic Blood Pressure Non-Invasive 57 mmHg mmHg 11/05/2022 11:21 EDT Systolic Blood Pressure Non-Invasive 100 mmHg mmHg Diastolic Blood Pressure Non-Invasive 58 mmHg mmHg 11/05/2022 11:20 EDT Temperature (Route Not Specified) 34.38 DegC DegC Heart Rate Monitored 79 bpm bpm Respiratory Rate - Anes 16 br/min br/min 11/05/2022 11:18 EDT Systolic Blood Pressure Non-Invasive 102 mmHg mmHg Diastolic Blood Pressure Non-Invasive 52 mmHg mmHg 11/05/2022 11:15 EDT Temperature (Route Not Specified) 34.17 DegC DegC Heart Rate Monitored 77 bpm bpm Respiratory Rate - Anes 15 br/min br/min Systolic Blood Pressure Non-Invasive 97 mmHg mmHg Diastolic Blood Pressure Non-Invasive 54 mmHg mmHg 11/05/2022 11:12 EDT Systolic Blood Pressure Non-Invasive 101 mmHg mmHg Diastolic Blood Pressure Non-Invasive 54 mmHg mmHg 11/05/2022 11:10 EDT Temperature (Route Not Specified) 33.98 DegC DegC Heart Rate Monitored 77 bpm bpm Respiratory Rate - Anes 31 br/min br/min 11/05/2022 11:09 EDT Systolic Blood Pressure Non-Invasive 96 mmHg mmHg Diastolic Blood Pressure Non-Invasive 56 mmHg mmHg 11/05/2022 11:06 EDT Systolic Blood Pressure Non-Invasive 106 mmHg mmHg Diastolic Blood Pressure Non-Invasive 60 mmHg mmHg 11/05/2022 11:05 EDT Temperature (Route Not Specified) 33.94 DegC DegC Heart Rate Monitored 75 bpm bpm Respiratory Rate - Anes 16 br/min br/min 11/05/2022 11:03 EDT Systolic Blood Pressure Non-Invasive 111 mmHg mmHg Diastolic Blood Pressure Non-Invasive 65 mmHg mmHg 11/05/2022 11:00 EDT Temperature (Route Not Specified) 33.69 DegC DegC Heart Rate Monitored 68 bpm bpm Respiratory Rate - Anes 14 br/min br/min Systolic Blood Pressure Non-Invasive 106 mmHg mmHg Diastolic Blood Pressure Non-Invasive 54 mmHg mmHg 11/05/2022 10:57 EDT Systolic Blood Pressure Non-Invasive 110 mmHg mmHg Diastolic Blood Pressure Non-Invasive 62 mmHg mmHg 11/05/2022 10:55 EDT Temperature (Route Not Specified) 31.8 DegC DegC Heart Rate Monitored 75 bpm bpm Respiratory Rate - Anes 15 br/min br/min 11/05/2022 10:54 EDT Systolic Blood Pressure Non-Invasive 118 mmHg mmHg Diastolic Blood Pressure Non-Invasive 79 mmHg mmHg 11/05/2022 10:50 EDT Respiratory Rate - Anes 0 br/min br/min 11/05/2022 8:50 EDT Temperature Temporal Artery 36.1 DegC Peripheral Pulse Rate 82 bpm Respiratory Rate 16 br/min Systolic Blood Pressure Non-Invasive 115 mmHg Diastolic Blood Pressure Non-Invasive 72 mmHg . Mental status: at preoperative baseline. Respiratory function: respirations are non-labored, stable. Respiratory support: none. CV function: stable. Cardiovascular support: none. Pain: satisfactory. Nausea status: satisfactory. Postoperative hydration status: within normal limits. Notes: Patient is sufficiently recovered from anesthesia to participate in the evaluation. No follow-up care needed. No complications post-anesthesia.. Digitally Signed by JOANA AGUERO MD on 11/05/2022 12:46 PM [id number] Anesthesiology Consult note Patient: HEIDY CAMPA Age: 37 years Sex: Female : 1985 Associated Diagnoses: None Author: JOANA AGUERO MD Preoperative Information Time of last food or liquid consumption: 11/04/2022 18:00:00 Anesthesia history Patient's history: negative. Family's history: negative. Health Status Allergies: Allergic Reactions (All) Severity Not Documented Sulfa drugs- Hives. Canceled/Inactive Reactions (All) Severity Not Documented Sulfamethoxazole- Hives., Allergies (1) ActiveReaction sulfa drugsHives Current medications: (Selected) Inpatient Medications Ordered Kefzol: 2 gram(s), 20 mL, 240 mL/hr, IV Push (INT), PREOP pharm LR 1,000 mL: 20 mL/hr, Intravenous, Stop: 11/05/22 22:59:00 EDT lidocaine 1% preservative-free injectable solution: 2.5 mg, 0.25 mL, Intradermal, prep pharm Prescriptions Prescribed levothyroxine 100 mcg (0.1 mg) oral tablet: 100 mcg, 1 tab(s), Oral, qAM, 30 tab(s), 2 Refill(s) Documented Medications Documented Multiple Vitamins oral capsule: 1 cap(s), Oral, qDay, 0 Refill(s), Medications (3) Active Scheduled: (2) ceFAZolin syringe 2 gram(s) 20 mL, IV Push (INT), PREOP pharm lidocaine 1% (MPF) 2 mL vial pf 2.5 mg 0.25 mL, Intradermal, prep pharm Continuous: (1) Lactated Ringers 1,000 mL 1,000 mL, Intravenous, 20 mL/hr PRN: (0) Problem list: Medical Hypothyroidism / SNOMED CT 51876397 / Confirmed Intermittent palpitations / SNOMED CT 627285349 / Confirmed Hypertriglyceridemia / SNOMED CT 563683535 / Confirmed Well adult exam / SNOMED CT 874360562 / Confirmed Dietary counseling / SNOMED CT 121912990 / Confirmed Exercise counseling / SNOMED CT 554697660 / Confirmed Depression / SNOMED CT 88316344 / Confirmed Fungal infection of nail / SNOMED CT 0082970305 / Confirmed BMI 30.0-30.9,adult / SNOMED CT 973802197 / Confirmed Class 1 obesity / SNOMED CT 113371767562320 / Confirmed Multiple lipomas / SNOMED CT 486219020 / Confirmed Umbilical hernia / SNOMED CT 5528534054 / Confirmed Tinnitus / SNOMED CT 911898733 / Confirmed Seasonal allergy / SNOMED CT 3816434657 / Confirmed Sinus congestion / SNOMED CT 849500361 / Confirmed, Active Problems (15) BMI 30.0-30.9,adult Class 1 obesity Depression Dietary counseling Exercise counseling Fungal infection of nail Hypertriglyceridemia Hypothyroidism Intermittent palpitations Multiple lipomas Seasonal allergy Sinus congestion Tinnitus Umbilical hernia Well adult exam Histories Past Medical History: Resolved Clinical diagnosis of COVID-19 (4135103611): Onset in the month of 02/2022 at 36 years Resolved. Vitamin D deficiency (60383747): Resolved. Recurrent sinusitis (328281425): Resolved. Right ankle pain (482952216): Resolved. Foot pain (994976403): Resolved. Iron deficiency anemia (766812340): Resolved. Family History: Hypertension Father High blood pressure Mother Brother Grandparent Stroke Mother Grandparent Heart attack Grandparent Uterine cancer Maternal Grandmother Procedure history: Excision of lipoma (299979744) on 09/25/2017 at 32 Years. Comments: 10/22/2022 8:33 ROSEYT - ROS Bailey upper buttock Balloon sinuplasty (1230900097) in 2018 at 32 Years. Other (091861004) on 02/14/2017 at 31 Years. Comments: 05/01/2018 9:12 Francisca Liu MA sinus surgery procedure section ([id number]) in the month of 10/2014 at 29 Years. LASIK ([id number]) in 2011 at 26 Years. Extraction of impacted wisdom tooth (862244549) on 02/15/2008 at 22 Years. Social History Social & Psychosocial Habits Alcohol 11/05/2022 Use: Current Type: Beer, Liquor, Wine Frequency: 1-2 times per week 11/05/2022Risk Assessment: No Risk Substance Abuse 11/05/2022 Use: Never 11/05/2022Risk Assessment: Denies Substance Abuse Tobacco 11/05/2022 Tobacco Use: Never (less than 100 in l 11/05/2022Risk Assessment: Denies Tobacco Use Home/Environment 11/05/2022 Domestic Concerns None Living situation: Home/Independent Safe place to go: Yes Current Home Treatments None Special Services and Community Resources None Marital Status of Patient if Patient Independent Adult: . Physical Examination Vital Signs 11/05/2022 8:50 EDT Temperature Temporal Artery 36.1 DegC Peripheral Pulse Rate 82 bpm Respiratory Rate 16 br/min Systolic Blood Pressure Non-Invasive 115 mmHg Diastolic Blood Pressure Non-Invasive 72 mmHg Vital Signs(last 24 hrs) Last Charted Resp Rate 16 br/min (NOV 05 08:50) SWO849 mmHg (NOV 05 08:50) DBP72 mmHg (NOV 05 08:50) Measurements from flowsheet : Measurements 11/05/2022 8:50 EDT Height 157.5 cm Height in inches 62 inch(es) Admission Weight 78.1 kg Weight Lbs 171.8 lb Weight Method Actual [place] Body Weight 50.12 kg Type of Scale Used Bed scale Admission Body Mass Index 31.48 m2 Pain assessment: Pain Assessment 11/05/2022 8:50 EDT Primary Pain Intensity 0 Pain Scale Type 0-10 Pain scale . General: Alert and oriented. Airway: Normal temporomandibular joint mobility, Nares patent, Trachea midline. Mallampati classification: II (soft palate, fauces, uvula visible). Head: Normocephalic, Atraumatic. Dentition Evaluation: Intact, Own teeth. Respiratory: Lungs are clear to auscultation. Cardiovascular: Normal rate, Regular rhythm. Neurologic: Alert, Oriented. Review / Management Results review: No qualifying data available , Lab results 11/05/2022 9:01 EDT SN - Preop - CTm Pt Ready for OR/Proced 11/05/2022 9:01 11/05/2022 9:01 EDT Lactated Ringers Injection Begin Bag 1,000 mL mL 11/05/2022 9:00 EDT Hand Left 11/05/2022 20 gauge Peripheral IV Activity: Insert new site Peripheral IV Dressing Condition: Clean, Dry, Intact Peripheral IV Dressing Activity: Applied Peripheral IV Line Status/Patency: Continuous infusion Peripheral IV Site Condition: No complications Peripheral IV Equipment: Manual Peripheral IV Number of Attempts: 1 11/05/2022 8:56 EDT Urine POC Negative 11/05/2022 8:52 EDT Individuals Taught Patient, Spouse Learning Readiness Willing to learn Barriers to Learning None evident Teaching Method Explanation Preferred Spoken Language Kazakh Preferred Written Language Kazakh Family/Caregiver Prefer Spoken Language Kazakh Family/Caregiver Prefer Written Language Kazakh Surgical Site Infection Prevention SSI FAQ provided, Hand hygiene, Pre-op antibiotic use, Pre-op nasal swab Infection Prevention Teaching Evaluation Verbalizes/Nonverbally indicates understanding Pain Medication Education Pain scale Pain Teaching Evaluation Verbalizes/Nonverbally indicates understanding Safety Measures Education Fall prevention, Call light use Safety Teaching Evaluation Verbalizes/Nonverbally indicates understanding 11/05/2022 8:50 EDT Height 157.5 cm Height in inches 62 inch(es) Admission Weight 78.1 kg Weight Lbs 171.8 lb Weight Method Actual [place] Body Weight 50.12 kg Type of Scale Used Bed scale Admission Body Mass Index 31.48 m2 Temperature Temporal Artery 36.1 DegC Peripheral Pulse Rate 82 bpm Respiratory Rate 16 br/min Systolic Blood Pressure Non-Invasive 115 mmHg Diastolic Blood Pressure Non-Invasive 72 mmHg Primary Pain Intensity 0 Pain Scale Type 0-10 Pain scale Heart Rhythm Regular Respirations Unlabored Respiratory Pattern Regular Breath Sounds Auscultated Anterior and posterior All Lobes Breath Sounds Clear Oxygen Therapy Room air Oxygen Saturation 98 % Abdomen Description Soft, Rounded Bowel Sounds All Quadrants Present Urinary Elimination Voiding, no difficulties Skin Temperature Warm Skin Description [place], Dry Skin Integrity Intact Extremity Movement Equal Characteristics of Speech Clear Level of Consciousness Alert Strength All Extremities Strong Tone All Extremities Normal Sensation All Extremities Intact Affect/Behavior Appropriate, Calm, Cooperative Orientation Oriented x 4 Standard Safety ID band on, Allergy Band on, Call device within reach, Bed in low position, Wheels locked, Upper/Half-Length side-rails up, Phone within reach, personal items within reach, Visitor atbedside 11/05/2022 8:49 EDT Violence Risk Confused No Violence Risk Irritable No Violence Risk Boisterous No Violence Risk Verbal Threats No Violence Risk Physical Threats No Violence Risk Attacking Objects No Violence Risk Predictor Score 0 Violence Risk Intervention None Violence Risk Current Interventions None Allergies Yes Consent Form Signed Yes Patient Dressed In Hospital gown CHG Preoperative Wash/Wipe Night before procedure, Day of procedure, Site specific wipe Preop Nasal Swab Povidone-Iodine CHG Skin Prep Completed for Eligible Surgery History & Physical Update On Chart Yes History & Physical On Chart Yes Obstructive Sleep Apnea Assess Completed Yes MRSA/MSSA Protocol No Belongings At Bedside Cell phone, Pants, Shirt, Shoes, Undergarments NPO Status Maintained Allergy Band on and Verified Yes Patient ID Band on and Verified Yes Implants Verified Yes Pacemaker/AICD Verified Yes Site Verified by Patient/Family Yes Last Fluid Intake 11/04/2022 21:00 Last Food Intake 11/04/2022 20:00 Last Void 11/05/2022 8:50 11/05/2022 8:46 EDT Designated Person #1 We May Share [place] [facility] ([phone]) Designated Person #1 Relationship Spouse Privacy Restrictions Requested None Status No, per patient Sensory Deficits None Sleep Apnea Snore Yes Sleep Apnea Tired No Sleep Apnea Obstruction Yes Sleep Apnea Pressure No Sleep Apnea BMI No Sleep Apnea Age No Sleep Apnea Neck No Sleep Apnea Gender No Sleep Apnea Score 2 Diagnosed With Sleep Apnea No Advanced Directives No - refuses information Infectious Disease Symptoms Patient states no symptoms Infectious Disease Recent Exposure No Alcohol and Drug Use No Employee of Institutional Living No Health Care Employee No History of Exposure to TB No History of Positive Chest X-Ray for TB No History of Positive TB Skin Test No Homeless No Known Immunosuppression No Recent Immigrant No Resident of Institutional Living No Bloody Sputum No Fatigue No Fever No Loss of Appetite No Night Sweats No Persistent Cough > 3 Weeks No Weight Loss No Surgery Scheduled On Date/Time 11/05/2022 10:20 Patient Aware Date/Time Of Surgery Yes Arrival Time the Day of Surgery 11/05/2022 8:20 Patient Aware of Arrival Time Yes Previous Surgery At This Facility Yes Pre-Op Patient Education NPO after midnight, No smoking after midnight, No makeup, No jewelry, Responsible Constitution Party, Aware of surgery location, Pre-op education done, 1 bottle CHG wash with instructionsgiven, Instructed to take ordered medications SN - Preprocedure Comments Spoke with patient, Verbalizes/Nonverbally indicates understanding Barriers to Learning None evident Teaching Method Explanation, Printed materials Preferred Spoken Language Kazakh Preferred Written Language Kazakh Teaching Evaluation Verbalizes/Nonverbally indicates understanding Safety Brochure Information Reviewed Yes [facility] Video Viewed No Information Given by Patient Patient's Current Physicians Patient's Current Physicians Discharge To, Anticipated Home independently Prev Test Positive/Diagnosis w/COVID-19 Yes Previous COVID-19 Positive Date 05/2021, 02/2022 Current Quarantine/Isolated any Illness No Any Contact with Sick Animals/Birds No Traveled Anywhere in Last 30 Days No Lost Weight Unintentionally Recently No Eat Poorly Due to Decreased Appetite No Total MST Score 0 No Personal Devices, Patient Valuables None Anesthesia/Transfusions Prior anesthesia Admission Note-Nursing Same Day Patient History 11/05/2022 8:45 EDT SN - Preop - CTm Pt in SDS Room 11/05/2022 8:44 11/04/2022 13:28 EDT Surgery Scheduled On Date/Time 11/05/2022 10:20 Patient Aware Date/Time Of Surgery Yes Arrival Time the Day of Surgery 11/05/2022 8:20 Patient Aware of Arrival Time Yes Pre-Op Patient Education NPO after midnight, No smoking after midnight, No makeup, No jewelry, Responsible Constitution Party, Aware of surgery location, Pre-op education done, 1 bottle CHG wash with instructionsgiven, Instructed to take ordered medications (Modified) SN - Preprocedure Comments Spoke with patient, Verbalizes/Nonverbally indicates understanding Admission Note-Nursing Patient History PreTest (Modified) . Assessment and Plan [place] [employer] Anesthesiologists (ASA) physical status classification: Class II. Anesthetic Preoperative Plan Anesthetic technique: MAC. Induction: intravenously. Maintenance airway: Mask, with ETCO2 monitor. Postoperative pain management: Per surgeon. Risks discussed: nausea, vomiting, headache, sore throat, dental injury, hypotension, allergic reaction, serious complications. Informed consent: signed by patient. Notes: hypothyroid, BMI 31.48, depression. Digitally Signed by JOANA AGUERO MD on 11/05/2022 09:59 AM [id number] NoteMFM genetic counseling note Consultation has been requested by Dr. Jacobs Reason for Referral Isolated increased nuchal fold on anatomy 04/02/21, with today Reported to have negative Panorama this confirmed with her records History: (Detailed history is noted in the genetic counselor's note) Pertinent historic issues: 1. Hypothyroidism on synthroid 2. AMA 3. prior with subsequent 4. Anxiety/depression on Wellbutrin The ultrasound performed at this visit confirmed an isolated increased nuchal fold of 7.9mm. Please refer to the ultrasound report for full details. We had limited cardiac views and discussed no obvious abnormalities but limitations due to positioning 1. We talked about the limitations of ultrasound in the diagnosis of aneuploidy 2. We talked about the limitations of screening (non-invasive) and diagnostic (invasive testing) and they are aware of normal screening with NIPT and we talked about the limitations of NIPT today as it does not look at the full karyotype and the ability to perform a microarray was also addressed with amniocentesis ? 3. The nuchal fold, rather than nuchal translucency, is measured in the second trimester. The nuchal fold is the measurement between the outer edge of the occipital bone to the outer margin of the skin and is taken in the axial plane. An increase in this measurement is also associated with aneuploidy. An increased nuchal fold is detected in 20 to 33 percent of fetuses with Down syndrome and up to 2 percent of euploid fetuses. I discussed with the couple that greater than 6mm is considered abnormal. The measurement today is 7.9 mm. This appears isolated today on our ultrasound and the couple had genetic counseling today to discuss options. Typically a cardiac defect is not as much of a concern with this finding but I cannot fully clear the anatomy today. We talked about the options for return to [facility] for echo vs Pediatric cardiology and they elected to have pediatric echo to be performed as soon as possible given our discussion today. They were offered genetic screening Vistara test and this test is designed to screen for 30 autosomal dominant or X-linked dominant conditions, some of which are associated with congenital heart disease such as Muldraugh's. Follow Up The couple expressed understanding of the above information. 1. Declined invasive screening 2. Declined Vistara today 3. Await full clearance of cardiac anatomy, if normal further scans for growth can be performed in OB office in [place] or remote with [facility] in [place] 4. I discussed this finding is not a cosmetic concern and won't be noticeable at or when the baby delivers. The couple was anxious but very appropriate and wanted as much information as possible. They were very appreciative of the scheduled echo as soon as possible to clear cardiac anatomy The total patient time of the visit was 30 minutes, of which greater than 50% of the time was spent counseling and coordinating care. [facility] Gill [facility] Future Appointments Appointment Date:09/16/2022 09:15:00 AM Scheduled Provider: Location:[facility] Appointment Type:PC Nurse Lab Appointment Date:09/16/2022 10:45:00 AM Scheduled Provider:RODO VALERO DO Location:Gen Surg CAN Appointment Type:GS OV Check Up Appointment Date:07/18/2023 09:15:00 AM Scheduled Provider: Location:[facility] Appointment Type:PC Nurse Lab Appointment Date:07/25/2023 10:00:00 AM Scheduled Provider:DEJUAN GONZALEZ Location:[facility] Appointment Type:PC Wellness Annual w/Labs Future Scheduled Tests Laboratory* Thyroid Stimulating Hormone 09/16/22 * Thyroid Stimulating Hormone 07/23/23 * Complete Blood Count 07/23/23 * Lipid Profile 07/23/23 * Vitamin D Level 07/23/23 * Complete Metabolic Panel 07/23/23 [facility] Evaluation + Plan note Future Appointments Appointment Date:07/18/2023 09:15:00 AM Scheduled Provider: Location:[facility] Appointment Type:PC Nurse Lab Appointment Date:07/25/2023 10:00:00 AM Scheduled Provider:DEJUAN GONZALEZ Location:[facility] Appointment Type:PC Wellness Annual w/Labs Future Scheduled Tests Laboratory* Thyroid Stimulating Hormone 07/23/23 * Complete Blood Count 07/23/23 * Lipid Profile 07/23/23 * Vitamin D Level 07/23/23 * Complete Metabolic Panel 07/23/23 [facility] Evaluation note* Diagnosis Onset Date Resolution Status Depression affecting acute History of delivery acute Hypothyroid acute Obesity affecting acute acute Short interval between pregn ancies affecting , antepartum acute Supervision of other normal acute COVID-19 vaccine series completed resolved Depression affecting acute History of delivery acute Hypothyroid acute Obesity affecting acute acute Short interval between pregn ancies affecting , antepartum acute Supervision of other normal acute Depression affecting acute History of delivery acute Hypothyroid acute Obesity affecting acute acute Short interval between pregn ancies affecting , antepartum acute Supervision of other normal acute AMA (advanced maternal age) multigravida 35+ acute Depression affecting acute History of delivery acute Hypothyroid acute Nuchal fold thickening on ultrasound acute Obesity affecting acute acute Short interval between pregn ancies affecting , antepartum acute Supervision of other normal acute AMA (advanced maternal age) multigravida 35+ acute Depression affecting acute Hypothyroid acute Nuchal fold thickening on ultrasound acute Obesity affecting acute acute Short interval between pregn ancies affecting , antepartum acute Supervision of other normal acute [facility] Work Phone: Evaluation note* Diagnosis Onset Date Resolution Status Depression affecting acute History of delivery acute Hypothyroid acute Obesity affecting acute acute Short interval between pregn ancies affecting , antepartum acute Supervision of other normal acute AMA (advanced maternal age) multigravida 35+ acute Depression affecting acute History of delivery acute Hypothyroid acute Nuchal fold thickening on ultrasound acute Obesity affecting acute acute Short interval between pregn ancies affecting , antepartum acute Supervision of other normal acute AMA (advanced maternal age) multigravida 35+ acute Depression affecting acute Hypothyroid acute Nuchal fold thickening on ultrasound acute Obesity affecting acute acute Short interval between pregn ancies affecting , antepartum acute Supervision of other normal acute AMA (advanced maternal age) multigravida 35+ acute Depression affecting acute Lab test positive for detection of COVID-19 virus acute Nuchal fold thickening on ultrasound acute Obesity affecting acute acute Short interval between pregn ancies affecting , antepartum acute Supervision of other normal acute AMA (advanced maternal age) multigravida 35+ acute Depression affecting acute History of delivery acute Hypothyroid acute Lab test positive for detection of COVID-19 virus acute Nuchal fold thickening on ultrasound acute Obesity affecting acute acute Short interval between pregn ancies affecting , antepartum acute Supervision of other normal acute AMA (advanced maternal age) multigravida 35+ acute Depression affecting acute History of delivery acute Hypothyroid acute Lab test positive for detection of COVID-19 virus acute Nuchal fold thickening on ultrasound acute Obesity affecting acute acute Short interval between pregn ancies affecting , antepartum acute Supervision of other normal acute AMA (advanced maternal age) multigravida 35+ acute Depression affecting acute History of delivery acute Hypothyroid acute Lab test positive for detection of COVID-19 virus acute Nuchal fold thickening on ultrasound acute Obesity affecting acute acute Short interval between pregn ancies affecting , antepartum acute Supervision of other normal acute [facility] Work Phone: Evaluation note* Diagnosis Onset Date Resolution Status Secondary oligomenorrhea acu te Encounter for routine gynecological examination noneactive [facility] Work Phone: Evaluation note* Diagnosis Onset Date Resolution Status Admit Date Secondary oligomenorrhea acute October 08, 2024 11:10am Stress incontinence acute Augus 2024 11:10am Encounter for routine gynecological examination noneactive October 08, 2024 11:10am [facility] Work Phone: Hospital course Narrative No data available for this section [facility] Hospital Discharge instructions No data available for this section [facility] Progress note No data available for this section [facility] Prograpg note Author Renetta Toribio [facility] Services Note Date/Time October 08, 2024 11 :45am [facility] [address], [address] [place] [address] OFFICE VISIT Date of Service: 10/08/24 MR#: [id number] Acct: [id number] Name: HEIDY CAMPA Rep #: [id number] : 1985 Provider: Dr. 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: No Is patient in pain?: No Allergies Sulfa (Sulfonamide Antibiotics) Allergy (Mild, Verified 10/08/24 11:15) hives Medications ?Medication ?Instructions ?Recorded ?Confirmed ?Type levothyroxine 88 mcg capsule 88 mcg PO QDAY 10/08/24 0 10/08/24 History liothyronine 50 mcg tablet 100 mcg PO QDAY 10/08/24 History progesterone micronized 100 mg 100 mg PO QAM 10/08/24 10/08/24 History capsule Is last menstrual period known: Yes Last Menstrual Period: 10/01/24 Post menopausal: No Patient : No : No PFSH Medical History Vaginal after Depression Lab test positive for detection of COVID-19 virus Nuchal fold thickening on ultrasound Chronic sinus infection Thyroid disorder Surgical History [place] teeth removed Hx of LASIK delivery delivered H/O rhinoplasty Family History Mother Hypertension Hyperlipidemia TIA (transient ischemic attack) Father Hypertension Grandmother Uterine cancer, Onset Age: 60 Grandfather Cancer stomach cancer (paternal) Social History (Updated 10/08/24 @ 11:17 by Christina Banda) household members: family housing: house number of children: 3 current occupational status: employed 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 Date Name GA/Weeks Outcome Route Bth Weight Infant Gen Labor Lgth Anesthesia Del Locatn Provider FOB Unknown Rama 11/09/2014 40 live - full term 7lbs 1o z Female spinal [facility] Carrington 03/26/20 Low 38 live - full term 7lbs 1oz Male 11 hours epidural [facility] GP 08/18/21 [place] 39 live - full term Male [facility] Dr. Toribio Delivery Date: Last Updated by: Renetta Toribio MD NST Decels, spontaneous ROM, Pitocin decels Delivery Date: 03/26/20 Last Updated by: Seble Dodson Laceration: Midline, Perineal Extension/lac, 2nd degree; nuchal cord loose HPI Encounter for routine gynecological examination Details: HEIDY CAMPA is a 39 year old who presents for annual exam. Last PAP: 09/03/2019 - normal History of abnormal PAP: Last mammogram: not due History of abnormal mammogram: Colon cancer screening: not due Other preventative health care screenings: PCP Carlos Hutchison). 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 Female Reproductive History Last Menstrual Period: 10/01/24 Cycle Length: 21-35 Bleeding Duration: 5 Questions: metrorrhagia: No, sexually active: Yes, dyspareunia: No and PCB: No Menopausal Symptoms: Yes hot flashes, No night sweats, No weight change, No moodchanges, No difficulty concentrating, No sleep problems and No change in libido ROS Const Constitutional: Reports as per HPI; Denies fatigue, increased appetite, poor appetite, night sweats, weight gain or weight loss Cardio Card: Denies chest pain Resp Resp: Denies cough or dyspnea GI GI: Reports as per HPI and bloating; Denies abdominal pain, constipation, nausea or vomiting : Reports as per HPI, hot flashes, urinary incontinence and other; Denies difficulty voiding, dysuria, hematuria, nipple discharge, pelvic pain, prolapse symptoms, urinary frequency, urinary urgency, vaginal discharge, vaginal dryness, vaginal odor or vaginal pruritus Skin Skin/Breast: Denies changing lesions, breast mass, breast pain, breast skin changes or nipple discharge Psych Psych: Denies anxiety, change in libido, depression or difficulty concentrating Exam Const General: cooperative, healthy appearing, comfortable, no acute distress, well developed and well groomed HENMI Head: normal to inspection and normocephalic Ears: hearing grossly normal bilaterally and external ears normal Nose: external nose normal Face and sinus: normal facial exam Neck Neck: normal visual inspection, full ROM and no lymphadenopathy Thyroid: thyroid normal Chest Chest palpation & inspection: normal inspection of the chest Breast inspection: normal inspection of the breasts and normal inspection of theaxillae Breast palpation: normal palpation of the breasts, normal palpation of the axillae and no axillary lymphadenopathy Resp Effort & Inspection: normal respiratory effort GI Inspection: normal to inspection and non-distended Palpation: soft, no hepatosplenomegaly and no guarding General: bladder normal to palpation External Female Exam: normal external appearance, normal appearance of the urethra and no lesions Urethra: normal appearance of the urethra and normal palpation Speculum Exam - Vagina: normal appearance of the vagina and normal vaginal discharge Speculum Exam - Cervix: normal appearance of the cervix, no cervical discharge, no lesions and nontender Bimanual Exam- Vagina & Uterus: normal bimanual exam, uterine size normal, bladder normal to palpation, No tender, uterine mobility normal, consistency normal, non-tender and no cervical motion tenderness Bimanual Exam- Adnexa, other: normal adnexae, no masses and non-tender Skin General: no rashes or lesions noted Neuro General: patient alert, moves all extremities and no focal motor deficits Extrem General: normal to inspection and no pedal edema Psych Appearance: grossly normal Mental Status: mental status grossly normal Affect: normal affect Speech and Movement: speech and movement normal Attitude: cooperative Coding Level of Care Code Off vis,est,prev 18-39yrs Diagnoses Encounter for gynecological examination without abnormal finding Z01.419 Gynecological examination findings: abnormal findings ABSENT Secondary oligomenorrhea N91.4 Stress incontinence N39.3 Assessment and Plan Assessment and Plan (1) Encounter for routine gynecological examination: Qualifiers: Gynecological examination findings: abnormal findings ABSENT Qualified Code(s): Z01.419 - Encounter for gynecological examination (general) (routine) without abnormal findings (2) Secondary oligomenorrhea: Status: Acute Comment: sees myobgyn, on bioidentical progesterone, discussed slynd or prometrium. (3) Stress incontinence: Status: Acute Comment: pfpt recommended Orders: Orders PAP IG HPV APTIMA 16/18,45 Today Z12.4 - Encounter for screening for malignant neoplasm of cervix Plan Cervical cancer screening: pap done Breast cancer screening: mamm age 40 other health maintenance examination reviewed and orders placed if needed. Encouraged maintenance of a healthy weight and active lifestyle and handout given. Annual exam handout including recommendations for good health guidelines, Calcium/vitamin D recommendations, and basic screening information given. Problem list up to date, see problem list details for any additional plan information. Follow up in one year for annual health maintenance exam or sooner if needed. 10/08/24 1145 <Electronically signed by Renetta boykin MD> Date _ Renetta Toribio MD Cosigner Signature: Date (if applicable) CC: ~ [facility] Work Phone: Reason for referral (narrative)No reason for referral information availableEmanate Health[facility] Work Phone: Summary Purpose Family History No Family History Records Found Relationship Condition Age at Onset Recorded Date/T [place] mother Hypertension Unknown Hyperlipidemia Unknown Transient ischemic attack Unknown father Hypertension Unknown grandmother Malignant neoplasm of uterus 60 grandfather Malignant neoplasm Unknown Advance Directives No Advanced Directives Records Found Advance Directive Response Recorded Date/ Time Living Will No March 26, 6:16am Power of Agricultural Chemicals Inspector No March 26, 2020 6:16am Advance Directive Response Recorded Date/ Time Living Will No August 18, 2021 5 :07am Power of Agricultural Chemicals Inspector No August 18, 2021 5:07am Chief Complaint and Reason for Visit Chief Complaint 13WK OB TSH MISSED ON LAST DRAW 17WK OB 21 WK OB 25 WK OB E-ORDER 28WK OB / GLUCOSE Reason for Visit Depression affecting History of delivery Hypothyroid Obesity affecting Short interval between pregnancies affecting , antepartum Supervision of other normal COVID-19 vaccine series completed Depression affecting History of delivery Hypothyroid Obesity affecting Short interval between pregnancies affecting , antepartum Supervision of other normal Depression affecting History of delivery Hypothyroid Obesity affecting Short interval between pregnancies affecting , antepartum Supervision of other normal AMA (advanced maternal age) multigravida 35+ Depression affecting History of delivery Hypothyroid Nuchal fold thickening on ultrasound Obesity affecting Short interval between pregnancies affecting , antepartum Supervision of other normal AMA (advanced maternal age) multigravida 35+ Depression affecting Hypothyroid Nuchal fold thickening on ultrasound Obesity affecting Short interval between pregnancies affecting , antepartum Supervision of other normal Chief Complaint 21 WK OB 25 WK OB E-ORDER 28WK OB / GLUCOSE 30WK OB GROWTH 32 WEEKS 32WK OB 35WK OB GROWTH 36 WEEKS 36 WK OB Reason for Visit Depression affecting History of delivery Hypothyroid Obesity affecting Short interval between pregnancies affecting , antepartum Supervision of other normal AMA (advanced maternal age) multigravida 35+ Depression affecting History of delivery Hypothyroid Nuchal fold thickening on ultrasound Obesity affecting Short interval between pregnancies affecting , antepartum Supervision of other normal AMA (advanced maternal age) multigravida 35+ Depression affecting Hypothyroid Nuchal fold thickening on ultrasound Obesity affecting Short interval between pregnancies affecting , antepartum Supervision of other normal AMA (advanced maternal age) multigravida 35+ Depression affecting Lab test positive for detection of COVID-19 virus Nuchal fold thickening on ultrasound Obesity affecting Short interval between pregnancies affecting , antepartum Supervision of other normal AMA (advanced maternal age) multigravida 35+ Depression affecting History of delivery Hypothyroid Lab test positive for detection of COVID-19 virus Nuchal fold thickening on ultrasound Obesity affecting Short interval between pregnancies affecting , antepartum Supervision of other normal AMA (advanced maternal age) multigravida 35+ Depression affecting History of delivery Hypothyroid Lab test positive for detection of COVID-19 virus Nuchal fold thickening on ultrasound Obesity affecting Short interval between pregnancies affecting , antepartum Supervision of other normal AMA (advanced maternal age) multigravida 35+ Depression affecting History of delivery Hypothyroid Lab test positive for detection of COVID-19 virus Nuchal fold thickening on ultrasound Obesity affecting Short interval between pregnancies affecting , antepartum Supervision of other normal Chief Complaint Annual ([employer]) NEED ORDER, E-ORDER Reason for Visit Secondary oligomenor bryanna Encounter for routine gynecological examination Chief Complaint Admit Date Annual ([employer]) October 08, 2024 11 :10am Reason for Visit Admit Date Secondary oligomenorrhea October 08 11:10am Stress incontinence October 08, 2024 11 :10am Encounter for routine gynecological exam ination October 08, 2024 11:10am Additional Source Comments INFORMATION SOURCE (unrecogn ized section and content) DATE CREATED AUTHOR 01/21/2018 [facility] DATE CREATED AUTHOR AUTHOR'S ORGANIZ ATION 01/23/2018 [facility] DATE CREATED AUTHOR AUTHOR'S ORGANIZ ATION 05/30/2018 [facility] eleni Barber DATE CREATED AUTHOR AUTHOR'S ORGANIZ ATION 07/20/2018 [facility] DATE CREATED AUTHOR AUTHOR'S ORGANIZ ATION 04/03/2021 [facility] DATE CREATED AUTHOR AUTHOR'S ORGANIZ ATION 07/19/2023 [facility] ([place] DATE CREATED AUTHOR AUTHOR'S ORGANIZ ATION 05/05/2024 [facility] DATE CREATED AUTHOR AUTHOR'S ORGANIZ ATION 07/28/2024 [facility] DATE CREATED AUTHOR AUTHOR'S ORGANIZ ATION 10/14/2024 [facility] Goals (unrecognized section and content) Goals may be documented in a n alternate sectionGoals may be documented in an alternate sectionGoals may be documented in an alternate section No data available for this sectionGoals may be documented in an alternate section No data available for this section No data available for this sectionGoals may be documented in an alternate sectionGoals may be documented in an alternate section Patient Care team informatio n (unrecognized section and content) Team Status: Active Member Role Status Dates DEJUAN GONZALEZ Primary Care Provider Active Team Status: Inactive Member Role Status Dates Dr. Renetta Toribio MD Attending Provider Active Team Status: Inactive Member Role Status Dates CARLOS ZAIDI Primary Care Provider Active Dr. Renetta Toribio MD Attending Provider, Referr ing Provider Active Team Status: Inactive Member Role/Relationship Status Dates Dr. Renetta Toribio MD Attending Provider Active Start: October 08, 2024 End: October 08, 2024 Team Status: Inactive Member Role/Relationship Status Dates Dr. Renetta Toribio MD Attending Provider Active Start: October 08, 2024 End: October 08, 2024 Dr. Renetta Toribio MD Referring Provider Active Start: October 08, 2024 End: October 08, 2024 Source Comments (unrecognize d section and content) In the event this informatio n is protected by the Federal Confidentiality of Alcohol and Drug Abuse Patient Records regulations: The Federal rules restrict any use of the information to criminally investigate or prosecute any alcohol or drug abuse patient.[facility] FOR RECORDS PERTAINING TO PATIENTS WHO ARE OR HAVE BEEN ENROLLED IN A CHEMICAL DEPENDENCY/SUBSTANCEABUSE PROGRAM, SOME INFORMATION MAY BE OMITTED. This clinical summary was aggregated from multiple sources. Caution should be exercised in using it in the provision of clinical care. This summary normalizes information from multiple sources, and as a consequence, information in this document may materially change the coding, format and clinical context of patient data. In addition, data may be omitted in some cases. CLINICAL DECISIONS SHOULD BE BASED ON THE PRIMARY CLINICAL RECORDS. [facility] [employer] [facility]. provides no warranty or guarantee of the accuracy or completeness of information in this document.
[2024-11-07 11:27] LABS: Free T3 2.6 pg/mL (2.18-3.98); Vitamin D,25 Hydroxy 42.4 ng/mL (30-100)
== END | disposition home or self-care (01) ==
PROVIDERS: Referring Provider Nurse Practitioner Women's Health; Visit Provider Nurse Practitioner Women's Health
DX: E55.9 Vitamin D deficiency, unspecified (principal); E03.8 Other specified hypothyroidism
CPT/HCPCS: 36415; 82306; 84439; 84443; 84481

== ENCOUNTER → 2025-01-07 | Outpatient (CLI) | payer BC, SELFPAY | END | disposition home or self-care (01) | LOC: LABSPEC 15:04 | PROVIDERS: Referring Provider Otolaryngology; Visit Provider Otolaryngology | DX: J02.9 Acute pharyngitis, unspecified (principal) | CPT/HCPCS: 87070; 87077; 87186 ==

== ENCOUNTER → 2025-01-14 | Outpatient (CLI) | payer BC, SELFPAY ==
--- OUTSIDE RECORDS SUMMARY | 2025-01-14 09:51 | XMS RPT_ITS | CCD ---
Author Organization [facility] CliniSypa Care Team Providers Care Laboratory Associate Name Role Phone FERNANDO GIBRAN Atiya Unavailable Unavailable KEATON MADELYN C Unavailable Unavailable KAETON MADELYN C Unavailable Unavailable KEATON MADELYN C Unavailable Unavailable CIARA VICTORIA Unavailable Unavailable PROVIDER, UNKNOWN Unavailable Unavailable Damon Ponce Attending Unavailable Gibran King Primary Care Unavailable Javid Mon Attending Unavailable Gibran King Primary Care Unavailable Care Physician, No Primary Referring Provider Un available Dr. Maureen Hartman Attending Provider [phone] CARLOS, DEJUAN Primary Care Provider UnavailDr. Renetta Nixon Attending Provider [phone] Vianney MUTUAL FUND ANALYST, CLIFF Vasquez Attending Provider [phone] DEJUAN GONZALEZ Referring Provider Unavailable Dr. Renetta Toribio Attending Provider [phone] BOSCARIE, DEJUAN Primary Care Provider Unavailabl Dr. Maureen Hensley Attending Provider [phone] BOSCARIE UROLOGIST PHYSICIAN-GEN, DEJUAN Primary Care Physician Dr. Renetta Toribio Attending Provider [phone] Unavailable Primary Care Provider Unavailabl e RODO VALERO DO Attending Unavailable BOSLER UROLOGIST PHYSICIAN-PRINT MANAGER, DEJUAN Primary Care Unavaila ble BOSLER UROLOGIST PHYSICIAN-PRINT MANAGER, DEJUAN Attending Unavaila ble BOSLER UROLOGIST PHYSICIAN-PRINT MANAGER, DEJUAN Primary Care Unavaila ble BOSLER UROLOGIST PHYSICIAN-PRINT MANAGER, DEJUAN Attending Unavaila ble BOSLER UROLOGIST PHYSICIAN-PRINT MANAGER, DEJUAN Primary Care Unavaila ble BEACH DORODO Attending Unavailable BOSLER UROLOGIST PHYSICIAN-PRINT MANAGER, DEJUAN Primary Care Unavaila ble [place] DORODO Attending Unavailable BOSLER UROLOGIST PHYSICIAN-PRINT MANAGER, DEJUAN Primary Care Unavaila ble [place]ACH DORODO Attending Unavailable BOSLER UROLOGIST PHYSICIAN-PRINT MANAGER, DEJUAN Primary Care Unavaila ble [place]ACH DORODO Attending Unavailable BOSLER UROLOGIST PHYSICIAN-PRINT MANAGER, DEJUAN Primary Care Unavaila ble JOANA AGUERO MD Consulting Unavailable BOSLER UROLOGIST PHYSICIAN-PRINT MANAGER, DEJUAN Attending Unavaila ble BOSLER UROLOGIST PHYSICIAN-PRINT MANAGER, DEJUAN Primary Care Unavaila ble BOSLER UROLOGIST PHYSICIAN-PRINT MANAGER, DEJUAN Primary Care Unavaila ble HOSKINS UROLOGIST PHYSICIAN-CNMLAKESHIA Attending Stephani vailable BOSLER UROLOGIST PHYSICIAN-PRINT MANAGER, DEJUAN Primary Care Unavaila ble BOSLER UROLOGIST PHYSICIAN-PRINT MANAGER, DEJUAN Attending Unavaila ble Malu RODRIGUEZ, Dr. Jackson Attending Provider [phone] Malu RODRIGUEZ, Dr. Jackson Referring Provider [phone] Dr. Renetta Toribio MD Attending Physician GATO MUTUAL FUND ANALYST-CLAKESHIA Attending Physician GATO MUTUAL FUND ANALYST-C, LAKESHIA Referring Provider DEJUAN GONZALEZ Primary Care Physician [phone] Renetta Toribio Attending Unavailable Renetta Toribio Attending Unavailable Renetta Toribio Referring Unavailable LAKESHIA HOSKINS Attending Unavailable LAKESHIA HOSKINS Referring Unavailable LOUISE, FILOMENA Primary Care Unavailable Allergies Allergy Classification Reported Allergen(s) Allergy Type Date of Onset Reaction(s) Facility (1 source) Sulfonamides (Antibiotic) Drug allergy (disorder) [facility] (8 sources) Sulfonamides (Antibiotic); Translations: [Sulfa (Sulfonamide Antibiotics)] Allergy to substance 2 [facility] (1 source) Sulfamethoxazole ; Translations: [sulfamethoxazol e] Drug Allergy [facility] (2 sources) Sulfonamides (Antibiotic); Translations: [sulfa drugs] Drug allergy Weal (disorder) [facility] Medications Current Medications Medication Drug Class(es) Dates Sig (Normalized) Sig (Original) acetaminophen 325 mg / HYDROcodone bitartrate 5 mg oral tablet (1 source) Opioid Agonist Start: 11-05-2022 End: 11-07-2022 take 1 tablet by mouth every four hours as needed for pain Booker 325- 5 mg oral tablet Dose = 1 tab(s), Oral, q4h, PRN as needed for pain, X 2 day(s), # 5 tab(s), 0 Refill(s), Pharmacy: [id number], Post-op pain, 157.5, cm, 11/05/22 [...] hydrochloride 300 mg extended release oral tablet (20 sources) Aminoketone Start: 08-03-2022 take 1 tablet [...] hr Discontinued 300 mg PO EVERY MORNING 30 November 03, 2021 11:25am October 04, 2022 3:21pm [...] 5:19am November 03, 2021 11:25am depression levothyroxine sodium 0.088 m g oral capsule (17 sources) l-Thyroxine Start: 10-08-2024 take [address] [facility] once daily Start: 10-08-2024 take [address] [facility] once daily Levothyroxine 88 mcg capsule Active [...] qAM, # 30 tab(s), 2 Refill(s), Pharmacy: [id number], 159, cm, 07/22/22 10:23:00 EDT, Height Start Date: 07/22/22 Status: Ordered Start: 09-03-2019 End: 10-04-2022 take 1 tablet by mouth once daily Levothyroxine 50 mcg tablet Discontinued 50 ug PO DAILY September 03, 2019 12:00am October 04, 2022 3:21pm nutrition liothyronine sodium 0.05 mg oral tablet (3 sources) l-Triiodothyronine Start: 10-08-2024 take 1 tablet by mouth once daily montelukast 10 mg oral tablet (3 sources) [...] Ordered Start: 07-24-[address] [facility] once daily Multiple Vitamins oral capsule Dose = 1 cap(s), Oral, Daily, 0 Refill(s) Start Date: 07/24/18 Status: Ordered Multivit 32-Dosb-Wycvpy 1-Dh a (Pnv-Dha) 27 mg iron-1 mg -300 mg capsule (7 sources) Start: 01-06-2021 Multivit 47-Ir on-Folate 1-Dha (Pnv-Dha) 27 mg iron-1 mg -300 mg capsule Active CAP PO January 06, 2021 11:23am Start: 01-06-2021 End: 10-08-2024 Multivit 42-Ffkg-Uplzip 1-Dh a (Pnv-Dha) 27 mg iron-1 mg -300 mg capsule Discontinued 1 NMA PO DAILY January 06, 2021 1:00am October 08, 2024 11:15am Start: 01-06-2021 take [address] [facility] once daily Multivit 40-Eacv-Uqcyas 1-Dha (Pnv-Dha) 27 mg iron-1 mg -300 mg capsule Active 1 CAP PO DAILY January 06, 2021 1:00am Start: 01-06-2021 Multivit 47-Ir on-Folate 1-Dha (Pnv-Dha) 27 mg iron-1 mg -300 mg capsule Active CAP PO January 06, 2021 1:00am progesterone 100 mg oral capsule (3 sources) Progesterone Start: 10-08-2024 take [address] [facility] once daily in the morning Completed/Discontinued Medications Medication Drug Class(es) Dates Sig (Normalized) Sig (Original) amoxicillin 500 mg / clavulanate 125 mg oral tablet (20 sources) Penicillin-class Antibacterial Start: 04-13-2021 End: 04-20-2021 [...] 2019 3:27pm aspirin 81 mg oral tablet (4 sources) Platelet Aggregation Inhibitor, Nonsteroidal Anti-inflammatory Drug Start: 08-18-2021 End: 10-02-2021 take 1 capsule by mouth once daily Aspirin 81 mg Capsule Discontinued 81 mg PO DAILY August 18, 2021 12:00am October 02, 2021 3:06pm COVID during fluticasone propionate 0.05 mg/actuat metered dose nasal spray (8 sources) Corticosteroid Start: 09-03-2019 End: 10-02-2021 Fluticasone [...] Start: 07-24-2018 take 1 dose nasal ro radha twice daily fluticasone 50 mcg/inh NASAL spray Dose = 2 spray(s), Nostril, each, BID, 0 Refill(s) Start Date: 07/24/18 Status: Ordered levocetirizine dihydrochloride 5 mg oral tablet (7 sources) Histamine-1 Receptor Antagonist Start: 09-03-2019 End: 01-06-2021 take 1 tablet by mouth once daily Levocetirizine (Xyzal) 5 mg tablet Discontinued 5 mg PO DAILY September 03, 2019 12:00am January 06, 2021 11:24am Check with primary doctor naproxen 250 mg oral tablet (7 sources) Nonsteroidal Anti-inflammatory Drug Start: 03-27-2020 End: 05-07-2020 take 250-500 mg by mouth every eight hours as needed for pain Naproxen 250 MG tablet Discontinued 250 - 500 mg PO EVERY 8 HOURS NEEDED as needed for MILD PAIN 30 March 27, 2020 1:00am May 07, 2020 10:03am Pnv #29-Xguu-Cfvbt Acid-Omega3 30 mg iron-10 mg iron-1 mg capsule (1 source) Start: 09-03-2019 End: 05-07-2020 Pnv #53-Vaqm-Itgvg Acid-Omega3 30 mg iron-10 mg iron-1 mg capsule Discontinued 1 NMA PO DAILY September 03, 2019 12:00am May 07, 2020 10:04am Check with primary doctor Pnv 36-Zbxl-Sgoyq Feex-Jzanu-3 30 mg iron-10 mg iron-1 mg capsule (2 sources) Start: 09-03-2019 End: 05-07-2020 Pnv 60-Hikf-Pcfkc Qsxq-Rkcid-7 30 mg iron-10 mg iron-1 mg capsule [...] 01-21-2020 Chronic Genitourinary symptoms and ill-defined conditions (7 sources) Genuine stress incontinence; Translations: [Stress incontinence (female) (male)] Onset: 10-09-19 25 10-08-2024 Chronic Comment on above: pfpt recommended Menstrual disorders (9 sources) Secondary oligomenorrhea; Translations: [Secondary oligomenorrhea] Onset: 10-09-1910-04-2022 Chronic Comment on above: sees myobgyn, on bio identical progesterone, discussed slynd or prometrium. Mood disorders (3 sources) Depressive disorder 11-03-2020 Chronic Mycoses (3 sources) Onychomycosis 11-03-2020 Episodic Nutritional deficiencies (2 sources) Vitamin D deficiency; Translations: [Vitamin D deficiency, unspecified] Onset: 11-17-1912-2020 Chronic Other and unspecified benign neoplasm (3 sources) Lipoma (clinical) 07-22-2022 Episodic Other complications of (7 sources) Anemia of ; Translations: [Anemia complicating , unspecified trimester] 01-06-2021 Chronic Comment on above: Start iron Other complications of (7 sources) Maternal obesity complicating , childbirth and the puerperium, antepartum; Translations: [Obesity complicating , unspecified trimester] 08-18-2021 Chronic Other complications of (19 sources) Obesity complicating , unspecified trimester; Translations: [Obesity complicating , childbirth, or the puerperium, unspecified as to episode of care or not applicable] Chronic Other complications of (7 sources) Multigravida of advanced maternal age; Translations: [Supervision of elderly multigravida, unspecified trimester] 08-18-2021 Episodic Comment on above: nl NIPT growth us at 36 weeks Other complications of (7 sources) High risk ; Translations: [Supervision of high risk , unspecified, unspecified trimester] 01-06-2021 Episodic Comment on above: PRR VIDYA 04/06/20 Boy - Low PC Rama Jose Other complications of (7 sources) Finding of pattern of ; Translations: [Supervision of other high risk pregnancies, unspecified trimester] 08-18-2021 Episodic Comment on above: 03/2020 Other complications of (7 sources) ultrasound scan abnormal; Translations: [Abnormal ultrasonic finding on screening of mother] 08-18-2021 Episodic Comment on above: 04/01 anatomy US show ed 7.9mm, normal echo Other complications of (7 sources) Depressive disorder in mother complicating ; [...] Polyhydramnios and other problems of amniotic cavity (3 sources) Spontaneous rupture of membranes 01-06-2021 Episodic Previous (4 sources) Vaginal delivery following previous section; Translations: [Maternal care for unspecified type scar from previous delivery] 08-18-2021 Episodic Comment on above: IAL 39 SM boy A rthur Residual codes; unclassified (14 sources) History of vaccination; Translations: [Personal history of other drug therapy] 03-16-2021 Episodic Comment on above: Moderna 02/2020; 202001/14/20 Residual codes; unclassified (7 sources) Gestation period, 35 weeks; Translations: [35 [...] sources) Hypothyroidism; Translations: [Hypothyroidism, unspecified] Onset: 09-11-19 Chronic Comment on above: Synthroid 50mcg- bob ck labs q trimester- last checked 10/2020 Unclassified (1 source) Unknown / UNK(Unknown) Onset: 12-16-19 Unclassified (2 sources) COUGH,SORE THROAT,CONGESTION,LOW FEVER Onset: 05-18-19 19 Unclassified (9 sources) Patient encounter status 07-21-2020 Viral infection (15 sources) COVID-19; Translations: [Severe acute respiratory syndrome [...] Test Name Value Interpretation Reference Range Facility Free T3on 11-07-2024 Free T3 [Mass/Vol] 2.6 pg/mL Normal 2.18-3.98 [facility] Comment on above: Performed By: #### L 501.54881, L501.9520, L506.0400, L506.1001 #### [facility] [address] [place], [address] Free [id number] By: LAKESHIA RICHARDS on 11-07-2024 Free T3 [Mass/Vol] 2.6 pg/mL 2.18-3.98 [facility] T4 Free Directon 11-07-2024 T4 FREE DIRECT 1.40 ng/dL Normal 0.76-1.46 [facility] Comment on above: Performed By: #### L 501.79673, L501.9520, L506.0400, L506.1001 #### [facility] [address] [place], [place], [address] T4 freeOrdered By: LAKESHIA RICHARDS on 11-07-2024 Free T4 [Mass/Vol] 1.40 ng/dL 0.76-1.46 [facility] TSH DL <= 0.005 mIU/L QnOrde red By: LAKESHIA HOSKINS on 11-07-2024 TSH Qn 2.950 uIU/mL 0.300-4.20 0 [facility] Thyroid Stim Hormone (TSH)on 11-07-2024 TSH 2.950 uIU/mL Normal 0.300-4.20 0 [facility] Comment on above: Performed By: #### L 501.28600, L501.9520, L506.0400, L506.1001 #### [facility] [address] [place], [place], [address] Vitamin D,25 Hydroxyon 11-07 Vitamin D 25-OH 42.4 ng/mL Normal 30-100 [facility] Comment on above: Result Comment: Lilibeth min D Status Deficiency: <20 ng/mL (50nmol/L) Insufficiency: 20-30 ng/mL (50-75 nmol/L) Sufficiency: 30-100 ng/mL (75-250 nmol/L) Toxicity: >100 ng/mL (>250 nmol/L) Performed By: #### L 501.70892, L501.9520, L506.0400, L506.1001 #### [facility] [address] [place], [address] PAP IG HPV APTIMA 16/18,45on 10-10-2024 ADEQ Comment Normal . [facility] Comment on above: Order Comment: Speci men Comment: [id number] Specimen Comment: No. of containers..01 ThinPrep Vial Result Comment: Sati sfactory for evaluation. Endocervical and/or squamous metaplastic cells (endocervical component) are present. Performed By: #### L 7400.0280 #### [facility] [address] [place], [place], [address] COMM . Normal . [facility] Comment on above: Order Comment: Speci men Comment: [id number] Specimen Comment: No. of containers..01 ThinPrep Vial Performed By: #### L 7400.0280 #### [facility] [address] [place], [address] COMMENT Comment Normal . [facility] Comment on above: Order Comment: Speci men Comment: [id number] Specimen Comment: No. of containers..01 ThinPrep Vial Result Comment: This liquid based ThinPrep(R) pap test was screened with the use of an image guided system. Performed By: #### L 7400.0280 #### [facility] [address] [place], [address] DIAG Comment Normal . [facility] Comment on above: Order Comment: Speci men Comment: [id number] Specimen Comment: No. of containers..01 ThinPrep Vial Result Comment: NEGA TIVE FOR INTRAEPITHELIAL LESION OR MALIGNANCY. Performed By: #### L 7400.0280 #### [facility] [address] [place], [address] HPV APTIMA, HR Negative Normal Negative [facility] Comment on above: Order Comment: Speci men Comment: [id number] Specimen Comment: No. of containers..01 ThinPrep Vial Result Comment: This nucleic acid amplification test detects fourteen high- risk HPV types (16,18,31,33,35,39,45,51,52,56,58,59,66,68) without differentiation. Performed By: #### L 7400.0280 #### [facility] [address] [place], [address] HPV Ayde Rfx Comment Normal . [facility] Comment on above: Order Comment: Speci men Comment: [id number] Specimen Comment: No. of containers..01 ThinPrep Vial Result Comment: Crit eria not met, HPV Genotype not performed. Performed at: - [facility] [id number] Clinical Research Specialist: Anju Rogers MD, Phone: [phone] Performed at: = - [facility] [id number] Clinical Research Specialist: Anju Rogers MD, Phone: [phone] Performed By: #### L 7400.0280 #### [facility] [address] [place], [address] PAPSMR Comment Normal . [facility] Comment on above: Order Comment: Speci men Comment: [id number] Specimen Comment: No. of containers..01 ThinPrep Vial Result Comment: The Pap smear is a screening test designed to aid in the detection of premalignant and malignant conditions of the uterine cervix. It is not a diagnostic procedure and should not be used as the sole means of detecting cervical cancer. Both false-positive and false-negative reports do occur. Performed By: #### L 7400.0280 #### [facility] [address] [place], [place], [address] PERFORM Comment Normal . [facility] Comment on above: Order Comment: Speci men Comment: [id number] Specimen Comment: No. of containers..01 ThinPrep Vial Result Comment: Aishwarya Dasilva, Exhibition Specialist Performed By: #### L 7400.0280 #### [facility] [address] [place], [address] Cervical or vaginal specimen microscopic examination by liquid based cytology (reportOrdered By: Renetta Toribio on 10-08-2024 Cytology report Cyto stain.thin prep Doc (Cvx/Vag) Comment . [facility] Comment on above: Criteria not met, HP V Genotype not performed.Performed at: - [facility] [id number] Director: Anju Rogers MD, Phone: [phone] at: = - [facility] [id number] Director: Anju Rogers MD, Phone: [phone] Cervical or vagninal specime n microscopic examination by cytology stain (reported asOrdered By: Renetta Toribio on 10-08-2024 Cytology report Cyto stain Doc (Cvx/Vag) Comment . [facility] Comment on above: The Pap smear is [...] DNA Probe+sig amp Ql (Cvx) Negative Negative [facility] Comment on above: This nucleic acid am plification test detects fourteen high- risk HPV types (16,18,31,33,35,39,45,51,52,56,58,59,66,68)without differentiation. Laboratory - CytologyOrdered By: Renetta Toribio on 10-08-2024 Exhibition Specialist Cyto stain Nom (Cvx/Vag) [ID] Comment . [facility] Comment on above: [facility] - Miscellaneous t estsOrdered By: Renetta Toribio on 10-08-2024 Service comment (Unsp spec) [Interp] . . [facility] No Panel InformationOrdered By: Renetta Toribio on 10-08-2024 Pap Smear Specimen Adequacy Comment . [facility] Comment on above: Satisfactory for tuyet luation. Endocervical and/or squamous metaplasticcells (endocervical component) are present. Aba Tutor Office Visit Reporton 10-08-2024 Aba Tutor Office Visit Report [facility] [address] [place] [address], [address] [place] [address] OFFICE VISIT Date of Service: 10/08/24 MR#: [id number] Acct: [id number] Name: HEIDY CAMPA Rep #: [id number] : 1985 Provider: Dr. 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 Required: No Is patient in pain?: No [...] Chronic sinus infection Thyroid disorder Surgical History [place] teeth removed Hx of LASIK delivery delivered H/O rhinoplasty Family History Mother Hypertension Hyperlipidemia TIA (transient ischemic attack) Father Hypertension Grandmother Uterine cancer, Onset Age: 60 Grandfather Cancer stomach cancer (paternal) Social History (Updated 10/08/24 @ 11:17 by Christina Banda) household members: family housing: house number of children: 3 current occupational status: employed 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 Carrington 03/26/20 Low 38 live - full term 7lbs 1oz Male 11 hours epidural [facility] GP 08/18/21 [place] 39 live - full term Male [facility] Dr. Ruth lovett Delivery Date: Last Updated [...] health care screenings: PCP Carlos Hutchison). Sees MyOBGYN MUTUAL FUND ANALYST for progesterone Female Reproductive History Last Menstrual [...] acute distress, well developed and well groomed [facility] Head: normal to inspection and (more content not included)... Normal [facility] FT3on 07-24-2024 Free T3 [Mass/Vol] 4.10 pg/mL Normal 2.30-4.20 [facility] Comment on above: Performed By: #### F T3, FT4, VIDH #### [place] [address] FT4on 07-24-2024 Free T4 [Mass/Vol] 1.60 ng/dL Normal 0.89-1.76 [facility] Comment on above: Result Comment: No te - New Reference Range in effect 19 Performed By: #### F T3, FT4, VIDH #### [place] [address] VIDHon 07-24-2024 Vit. D 25-Hydroxy 78.1 ng/mL Normal [facility] Comment on above: Result Comment: Inte rpretive Values Based on Total 25(OH)D: Severe Deficiency <20 ng/mL Mild to Moderate Deficiency 20-30 ng/mL Optimum Levels 30-100 ng/mL Toxicity Possible >100 ng/mL Performed By: #### F T3, FT4, VIDH #### [place] [address] .Auto Diffon 07-16-2024 Basophil, Absolute 0.0 10 3/mcL Normal 0.0-0.3 [facility] Comment on above: Performed By: #### C BC, CMP, ADIFF, ANEU, GFR, LIPID, TSH #### [address] [address] Basophils/100 WBC (Bld) 0.2 % Normal 0.0-2.5 [facility] Comment on above: Performed By: #### C BC, CMP, ADIFF, ANEU, GFR, LIPID, TSH #### [address] [address] Eosinophil, Absolute 0.1 10 3/mcL Normal 0.0-0.7 [facility] Comment on above: Performed By: #### C BC, CMP, ADIFF, ANEU, GFR, LIPID, TSH #### [address] [address] Eosinophils/100 WBC (Bld) 2.0 % Normal 0.0-6.0 [facility] Comment on above: Performed By: #### C BC, CMP, ADIFF, ANEU, GFR, LIPID, TSH #### [address] [address] Lymphocyte, Absolute 1.6 10 3/mcL Normal 0.9-4.3 [facility] Comment on above: Performed By: #### C BC, CMP, ADIFF, ANEU, GFR, LIPID, TSH #### [address] [address] Lymphocytes/100 WBC (Bld) 31.9 % Normal 20.0-40.0 [facility] Comment on above: Performed By: #### C BC, CMP, ADIFF, ANEU, GFR, LIPID, TSH #### [address] [address] Monocyte, Absolute 0.4 10 3/mcL Normal 0.1-1.4 [facility] Comment on above: Performed By: #### C BC, CMP, ADIFF, ANEU, GFR, LIPID, TSH #### [address] [address] Monocytes/100 WBC (Bld) 7.2 % Normal 2.0-13.0 [facility] Comment on above: Performed By: #### C BC, CMP, ADIFF, ANEU, GFR, LIPID, TSH #### [address] [address] Neutrophils/100 WBC (Bld) 58.7 % Normal 50.0-75.0 [facility] Comment on above: Performed By: #### C BC, CMP, ADIFF, ANEU, GFR, LIPID, TSH #### [address] [address] .GFRon 07-16-2024 Estimated Glomerular Filtration Rate 108 ml/min/1.73sqm Normal [facility] Comment on above: Result [...] CMP, ADIFF, ANEU, GFR, LIPID, TSH #### [address] [address] .NEUABSon 07-16-2024 Neutrophil, Absolute 3.0 10 3/mcL Normal 2.3-8.1 [facility] Comment on above: Performed By: #### C BC, CMP, ADIFF, ANEU, GFR, LIPID, TSH #### [place] [address] CBCon 07-16-2024 Erythrocyte distribution width (RBC) [Ratio] 12.5 % Normal 11.5-15.5 [facility] Comment on above: Performed By: #### C BC, CMP, ADIFF, ANEU, GFR, LIPID, TSH #### [address] [address] Hematocrit (Bld) [Volume fraction] 42.2 % Normal 34.0-46.0 [facility] Comment on above: Performed By: #### C BC, CMP, ADIFF, ANEU, GFR, LIPID, TSH #### [place] [address] Hgb 14.0 G/dL Normal 12.0-16.0 [facility] Comment on above: Performed By: #### C BC, CMP, ADIFF, ANEU, GFR, LIPID, TSH #### [place] [address] MCH (RBC) [Entitic mass] 29.7 pg Normal 27.0-33.0 [facility] Comment on above: Performed By: #### C BC, CMP, ADIFF, ANEU, GFR, LIPID, TSH #### [place] [address] MCHC 33.2 G/dL Normal 32.0-36.0 [facility] Comment on above: Performed By: #### C BC, CMP, ADIFF, ANEU, GFR, LIPID, TSH #### [place] [address] MCV (RBC) [Entitic vol] 89.4 fL Normal 80.0-99.0 [facility] Comment on above: Performed By: #### C BC, CMP, ADIFF, ANEU, GFR, LIPID, TSH #### [place] [address] Platelet 186 10 3/mcL Normal 150-450 [facility] Comment on above: Performed By: #### C BC, CMP, ADIFF, ANEU, GFR, LIPID, TSH #### [place] [address] Platelet mean volume (Bld) [Entitic vol] 11.4 fL High 6.6-10.5 [facility] Comment on above: Performed By: #### C BC, CMP, ADIFF, ANEU, GFR, LIPID, TSH #### [place] [address] RBC 4.72 10 6/mcL Normal 4.10-5.30 [facility] Comment on above: Performed By: #### C BC, CMP, ADIFF, ANEU, GFR, LIPID, TSH #### [place] [address] WBC 5.0 10 3/mcL Normal 4.5-10.8 [facility] Comment on above: Performed By: #### C BC, CMP, ADIFF, ANEU, GFR, LIPID, TSH #### [address] [address] CMPon 07-16-2024 Albumin Level 3.9 G/dL Normal 3.2-4.8 [facility] Comment on above: Performed By: #### C BC, CMP, ADIFF, ANEU, GFR, LIPID, TSH #### [place] [address] Albumin/Globulin [Mass ratio] 1.3 {ratio} Normal 0.9-1.6 [facility] Comment on above: Performed By: #### C BC, CMP, ADIFF, ANEU, GFR, LIPID, TSH #### [place] [address] ALP [Catalytic activity/Vol] 59 U/L Normal 38-126 [facility] Comment on above: Performed By: #### C BC, CMP, ADIFF, ANEU, GFR, LIPID, TSH #### [place] [address] ALT [Catalytic activity/Vol] 15 U/L Normal 10-49 [facility] Comment on above: Performed By: #### C BC, CMP, ADIFF, ANEU, GFR, LIPID, TSH #### [place] [address] AST [Catalytic activity/Vol] 18 U/L Normal 8-34 [facility] Comment on above: Performed By: #### C BC, CMP, ADIFF, ANEU, GFR, LIPID, TSH #### [place] [address] Bili Total 0.50 mg/dL Normal 0.20-1.20 [facility] Comment on above: Result Comment: Use of this assay is not recommended for patients undergoing treatment with eltrombopag due to the potential for falsely elevated results. Performed By: #### C BC, CMP, ADIFF, ANEU, GFR, LIPID, TSH #### [place] [address] BUN/Creatinine Ratio 27.4 ratio High 10.0-22.0 [facility] Comment on above: Performed By: #### C BC, CMP, ADIFF, ANEU, GFR, LIPID, TSH #### [address] [address] Calcium [Mass/Vol] 9.2 mg/dL Normal 8.7-10.4 [facility] Comment on above: Performed By: #### C BC, CMP, ADIFF, ANEU, GFR, LIPID, TSH #### [address] [address] Chloride [Moles/Vol] 107 mmol/L Normal 98-110 [facility] Comment on above: Performed By: #### C BC, CMP, ADIFF, ANEU, GFR, LIPID, TSH #### [address] [address] CO2 [Moles/Vol] 30 mmol/L Normal 22-32 [facility] Comment on above: Performed By: #### C BC, CMP, ADIFF, ANEU, GFR, LIPID, TSH #### [address] [address] Creatinine [Mass/Vol] 0.73 mg/dL Normal 0.50-1.20 [facility] Comment on above: Result Comment: Test ing performed on Divvyshot analyzer using enzymatic creatinine methodology. Performed By: #### C BC, CMP, ADIFF, ANEU, GFR, LIPID, TSH #### [address] [address] Electrolyte Balance 5.0 mEq/L Normal 4.0-15.0 [facility] Comment on above: Performed By: #### C BC, CMP, ADIFF, ANEU, GFR, LIPID, TSH #### [address] [address] Globulin 2.9 G/dL Normal 2.5-4.2 [facility] Comment on above: Performed By: #### C BC, CMP, ADIFF, ANEU, GFR, LIPID, TSH #### [address] [address] Glucose [Mass/Vol] 89 mg/dL Normal 70-110 [facility] Comment on above: Performed By: #### C BC, CMP, ADIFF, ANEU, GFR, LIPID, TSH #### [address] [address] Potassium [Moles/Vol] 4.7 mmol/L Normal 3.5-5.0 [facility] Comment on above: Performed By: #### C BC, CMP, ADIFF, ANEU, GFR, LIPID, TSH #### [address] [address] Sodium [Moles/Vol] 142 mmol/L Normal 136-145 [facility] Comment on above: Performed By: #### C BC, CMP, ADIFF, ANEU, GFR, LIPID, TSH #### [address] [address] Total Protein 6.8 G/dL Normal 5.7-8.2 [facility] Comment on above: Performed By: #### C BC, CMP, ADIFF, ANEU, GFR, LIPID, TSH #### [address] [address] Urea nitrogen [Mass/Vol] 20.0 mg/dL Normal 8.0-22.0 [facility] Comment on above: Performed By: #### C BC, CMP, ADIFF, ANEU, GFR, LIPID, TSH #### [address] [address] LIPIDon 07-16-2024 Cholesterol [Mass/Vol] 146 mg/dL Normal 50-199 [facility] Comment on above: Result Comment: Chol esterol Reference Interval: Less than 200 Desirable 200-239 Borderline high risk 240 and above High risk Performed By: #### C BC, CMP, ADIFF, ANEU, GFR, LIPID, TSH #### [address] [address] Cholesterol in HDL [Mass/Vol] 36 mg/dL Low 40-59 [facility] Comment on above: Performed By: #### C BC, CMP, ADIFF, ANEU, GFR, LIPID, TSH #### [address] [address] Cholesterol in LDL [Mass/Vol] 95 mg/dL Normal 0-129 [facility] Comment on above: Performed By: #### C BC, CMP, ADIFF, ANEU, GFR, LIPID, TSH #### [address] [address] Triglyceride [Mass/Vol] 76 mg/dL Normal 3-149 [facility] Comment on above: Performed By: #### C BC, CMP, ADIFF, ANEU, GFR, LIPID, TSH #### [address] [address] TSHon 07-16-2024 TSH 0.186 mIU/mL Low 0.550-4.78 0 [facility] Comment on above: Performed By: #### C BC, CMP, ADIFF, ANEU, GFR, LIPID, TSH #### [address] [address] .Auto Diffon 05-04-2024 Basophil, Absolute 0.0 10 3/mcL Normal 0.0-0.2 [facility] Comment on above: Performed By: #### C MP, ANEU, LIPID, GFR, ADIFF, TSH, CBC #### [address] [address] Basophils/100 WBC (Bld) 0.4 % Normal 0.0-2.5 [facility] Comment on above: Performed By: #### C MP, ANEU, LIPID, GFR, ADIFF, TSH, CBC #### [address] [address] Eosinophil, Absolute 0.1 10 3/mcL Normal 0.0-0.7 [facility] Comment on above: Performed By: #### C MP, ANEU, LIPID, GFR, ADIFF, TSH, CBC #### [address] [address] Eosinophils/100 WBC (Bld) 1.8 % Normal 0.0-7.0 [facility] Comment on above: Performed By: #### C MP, ANEU, LIPID, GFR, ADIFF, TSH, CBC #### [address] [address] Lymphocyte, Absolute 1.7 10 3/mcL Normal 0.9-4.3 [facility] Comment on above: Performed By: #### C MP, ANEU, LIPID, GFR, ADIFF, TSH, CBC #### [address] [address] Lymphocytes/100 WBC (Bld) 35.4 % Normal 20.0-40.0 [facility] Comment on above: Performed By: #### C MP, ANEU, LIPID, GFR, ADIFF, TSH, CBC #### [address] [address] Monocyte, Absolute 0.3 10 3/mcL Normal 0.1-1.4 [facility] Comment on above: Performed By: #### C MP, ANEU, LIPID, GFR, ADIFF, TSH, CBC #### [address] [address] Monocytes/100 WBC (Bld) 5.6 % Normal 2.0-13.0 [facility] Comment on above: Performed By: #### C MP, ANEU, LIPID, GFR, ADIFF, TSH, CBC #### [address] [address] Neutrophils/100 WBC (Bld) 56.8 % Normal 50.0-75.0 [facility] Comment on above: Performed By: #### C MP, ANEU, LIPID, GFR, ADIFF, TSH, CBC #### [address] [address] .GFRon 05-04-2024 Estimated Glomerular Filtration Rate 89 ml/min/1.73sqm Normal [facility] Comment on above: Result Comment: Stages [...] ANEU, LIPID, GFR, ADIFF, TSH, CBC #### [place] [address] .NEUABSon 05-04-2024 Neutrophil, Absolute 2.8 10 3/mcL Normal 2.3-8.1 [facility] Comment on above: Performed By: #### C MP, ANEU, LIPID, GFR, ADIFF, TSH, CBC #### [place] [address] CBCon 05-04-2024 Erythrocyte distribution width (RBC) [Ratio] 12.5 % Normal 11.5-15.5 [facility] Comment on above: Performed By: #### C MP, ANEU, LIPID, GFR, ADIFF, TSH, CBC #### [place] [address] Hematocrit (Bld) [Volume fraction] 41.2 % Normal 34.0-46.0 [facility] Comment on above: Performed By: #### C MP, ANEU, LIPID, GFR, ADIFF, TSH, CBC #### [place] [address] Hgb 14.0 G/dL Normal 12.0-16.0 [facility] Comment on above: Performed By: #### C MP, ANEU, LIPID, GFR, ADIFF, TSH, CBC #### [place] [address] MCH (RBC) [Entitic mass] 30.0 pg Normal 27.0-33.0 [facility] Comment on above: Performed By: #### C MP, ANEU, LIPID, GFR, ADIFF, TSH, CBC #### [place] [address] MCHC 34.1 G/dL Normal 32.0-36.0 [facility] Comment on above: Performed By: #### C MP, ANEU, LIPID, GFR, ADIFF, TSH, CBC #### [address] [address] MCV (RBC) [Entitic vol] 87.9 fL Normal 80.0-99.0 [facility] Comment on above: Performed By: #### C MP, ANEU, LIPID, GFR, ADIFF, TSH, CBC #### [address] [address] Platelet 236 10 3/mcL Normal 150-450 [facility] Comment on above: Performed By: #### C MP, ANEU, LIPID, GFR, ADIFF, TSH, CBC #### [address] [address] Platelet mean volume (Bld) [Entitic vol] 10.4 fL Normal 6.6-10.5 [facility] Comment on above: Performed By: #### C MP, ANEU, LIPID, GFR, ADIFF, TSH, CBC #### [address] [address] RBC 4.68 10 6/mcL Normal 4.10-5.30 [facility] Comment on above: Performed By: #### C MP, ANEU, LIPID, GFR, ADIFF, TSH, CBC #### [address] [address] WBC 4.8 10 3/mcL Normal 4.5-10.8 [facility] Comment on above: Performed By: #### C MP, ANEU, LIPID, GFR, ADIFF, TSH, CBC #### [address] [address] CMPon 05-04-2024 Albumin Level 3.7 G/dL Normal 3.5-5.0 [facility] Comment on above: Performed By: #### C MP, ANEU, LIPID, GFR, ADIFF, TSH, CBC #### [address] [address] Albumin/Globulin [Mass ratio] 1.1 {ratio} Normal 1.1-2.5 [facility] Comment on above: Performed By: #### C MP, ANEU, LIPID, GFR, ADIFF, TSH, CBC #### [address] [address] ALP [Catalytic activity/Vol] 70 U/L Normal 40-135 [facility] Comment on above: Performed By: #### C MP, ANEU, LIPID, GFR, ADIFF, TSH, CBC #### [address] [address] ALT [Catalytic activity/Vol] 19 U/L Normal 14-59 [facility] Comment on above: Performed By: #### C MP, ANEU, LIPID, GFR, ADIFF, TSH, CBC #### [address] [address] AST [Catalytic activity/Vol] 17 U/L Normal 10-40 [facility] Comment on above: Performed By: #### C MP, ANEU, LIPID, GFR, ADIFF, TSH, CBC #### [address] [address] Bili Total 0.3 mg/dL Normal 0.2-1.0 [facility] Comment on above: Result Comment: Use of this assay is not recommended for patients undergoing treatment with eltrombopag due to the potential for falsely elevated results. Performed By: #### C MP, ANEU, LIPID, GFR, ADIFF, TSH, CBC #### [address] [address] BUN/Creatinine Ratio 20 ratio Normal 7-27 [facility] Comment on above: Performed By: #### C MP, ANEU, LIPID, GFR, ADIFF, TSH, CBC #### [address] [address] Calcium [Mass/Vol] 9.1 mg/dL Normal 8.4-10.2 [facility] Comment on above: Performed By: #### C MP, ANEU, LIPID, GFR, ADIFF, TSH, CBC #### [address] [address] Chloride [Moles/Vol] 102 mmol/L Normal 98-107 [facility] Comment on above: Performed By: #### C MP, ANEU, LIPID, GFR, ADIFF, TSH, CBC #### [address] [address] CO2 [Moles/Vol] 27 mmol/L Normal 22-29 [facility] Comment on above: Performed By: #### C MP, ANEU, LIPID, GFR, ADIFF, TSH, CBC #### [address] [address] Creatinine [Mass/Vol] 0.86 mg/dL Normal 0.55-1.02 [facility] Comment on above: Result Comment: Test ing performed on Siemens Dimension EXL analyzer using a modified kinetic Lucas technique. Performed By: #### C MP, ANEU, LIPID, GFR, ADIFF, TSH, CBC #### [address] [address] Electrolyte Balance 9.0 mEq/L Normal 4.0-15.0 [facility] Comment on above: Performed By: #### C MP, ANEU, LIPID, GFR, ADIFF, TSH, CBC #### [address] [address] Globulin 3.5 G/dL Normal 1.5-3.8 [facility] Comment on above: Performed By: #### C MP, ANEU, LIPID, GFR, ADIFF, TSH, CBC #### [address] [address] Glucose [Mass/Vol] 82 mg/dL Normal 70-105 [facility] Comment on above: Performed By: #### C MP, ANEU, LIPID, GFR, ADIFF, TSH, CBC #### [address] [address] Potassium [Moles/Vol] 4.2 mmol/L Normal 3.5-5.1 [facility] Comment on above: Performed By: #### C MP, ANEU, LIPID, GFR, ADIFF, TSH, CBC #### [address] [address] Sodium [Moles/Vol] 138 mmol/L Normal 136-145 [facility] Comment on above: Performed By: #### C MP, ANEU, LIPID, GFR, ADIFF, TSH, CBC #### [address] [address] Total Protein 7.2 G/dL Normal 6.4-8.2 [facility] Comment on above: Performed By: #### C MP, ANEU, LIPID, GFR, ADIFF, TSH, CBC #### [address] [address] Urea nitrogen [Mass/Vol] 17 mg/dL Normal 7-18 [facility] Comment on above: Performed By: #### C MP, ANEU, LIPID, GFR, ADIFF, TSH, CBC #### [address] [address] LIPIDon 05-04-2024 Cholesterol [Mass/Vol] 168 mg/dL Normal 0-200 [facility] Comment on above: Result Comment: Chol esterol Reference Interval: Less than 200 Desirable 200-239 Borderline high risk 240 and above High risk Performed By: #### C MP, ANEU, LIPID, GFR, ADIFF, TSH, CBC #### [address] [address] Cholesterol in HDL [Mass/Vol] 46 mg/dL Normal 40-60 [facility] Comment on above: Performed By: #### C MP, ANEU, LIPID, GFR, ADIFF, TSH, CBC #### [address] [address] Cholesterol in LDL [Mass/Vol] 97 mg/dL Normal 0-130 [facility] Comment on above: Performed By: #### C MP, ANEU, LIPID, GFR, ADIFF, TSH, CBC #### [address] [address] Triglyceride [Mass/Vol] 124 mg/dL Normal 0-150 [facility] Comment on above: Result Comment: Trig lyceride Reference Interval: Less than 150 Normal 150-199 Borderline high risk 200-499 High risk 500 or higher Very high risk Performed By: #### C MP, ANEU, LIPID, GFR, ADIFF, TSH, CBC #### [address] [address] TSHon 05-04-2024 TSH Qn 0.87 m[IU]/L Normal 0.36-3.74 [facility] Comment on above: Performed By: #### C MP, ANEU, LIPID, GFR, ADIFF, TSH, CBC #### [address] [address] .Auto Diffon 07-18-2023 Basophil, Absolute 0.0 10 3/mcL Normal 0.0-0.3 [facility] ([place]) Comment on above: Performed By: #### C MP, ANEU, GFR, CBC, VIDH, ADIFF, TSH, LIPID #### [address] [address] Basophils/100 WBC (Bld) 0.6 % Normal 0.0-2.5 [facility] ([place]) Comment on above: Performed By: #### C MP, ANEU, GFR, CBC, VIDH, ADIFF, TSH, LIPID #### [address] [address] Eosinophil, Absolute 0.1 10 3/mcL Normal 0.0-0.7 [facility] ([place]) Comment on above: Performed By: #### C MP, ANEU, GFR, CBC, VIDH, ADIFF, TSH, LIPID #### [address] [address] Eosinophils/100 WBC (Bld) 2.5 % Normal 0.0-6.0 [facility] ([place]) Comment on above: Performed By: #### C MP, ANEU, GFR, CBC, VIDH, ADIFF, TSH, LIPID #### [address] [address] Lymphocyte, Absolute 2.0 10 3/mcL Normal 0.9-4.3 [facility] ([place]) Comment on above: Performed By: #### C MP, ANEU, GFR, CBC, VIDH, ADIFF, TSH, LIPID #### [address] [address] Lymphocytes/100 WBC (Bld) 40.0 % Normal 20.0-40.0 [facility] ([place]) Comment on above: Performed By: #### C MP, ANEU, GFR, CBC, VIDH, ADIFF, TSH, LIPID #### [address] [address] Monocyte, Absolute 0.3 10 3/mcL Normal 0.1-1.4 [facility] ([place]) Comment on above: Performed By: #### C MP, ANEU, GFR, CBC, VIDH, ADIFF, TSH, LIPID #### [address] [address] Monocytes/100 WBC (Bld) 5.2 % Normal 2.0-13.0 [facility] ([place]) Comment on above: Performed By: #### C MP, ANEU, GFR, CBC, VIDH, ADIFF, TSH, LIPID #### [address] [address] Neutrophils/100 WBC (Bld) 51.7 % Normal 50.0-75.0 [facility] ([place]) Comment on above: Performed By: #### C MP, ANEU, GFR, CBC, VIDH, ADIFF, TSH, LIPID #### [address] [address] .GFRon 07-18-2023 GFR Non- >60 Normal [facility] ([place]) Comment on above: Result Comment: GFR Population [...] meters Performed By: #### T SH #### [address] [address] GFR >60 Normal [facility] ([place]) Comment on above: Result Comment: GFR Population [...] meters Performed By: #### T SH #### [place] [address] .NEUABSon 07-18-2023 Neutrophil, Absolute 2.6 10 3/mcL Normal 2.3-8.1 [facility] ([place]) Comment on above: Performed By: #### C MP, ANEU, GFR, CBC, VIDH, ADIFF, TSH, LIPID #### [place] [address] CBCon 07-18-2023 Erythrocyte distribution width (RBC) [Ratio] 12.7 % Normal 11.5-15.5 [facility] ([place]) Comment on above: Performed By: #### C MP, ANEU, GFR, CBC, VIDH, ADIFF, TSH, LIPID #### [place] [address] Hematocrit (Bld) [Volume fraction] 40.0 % Normal 34.0-46.0 [facility] ([place]) Comment on above: Performed By: #### C MP, ANEU, GFR, CBC, VIDH, ADIFF, TSH, LIPID #### [place] [address] Hgb 13.4 G/dL Normal 12.0-16.0 [facility] ([place]) Comment on above: Performed By: #### C MP, ANEU, GFR, CBC, VIDH, ADIFF, TSH, LIPID #### [place] [address] MCH (RBC) [Entitic mass] 30.3 pg Normal 27.0-33.0 [facility] ([place]) Comment on above: Performed By: #### C MP, ANEU, GFR, CBC, VIDH, ADIFF, TSH, LIPID #### [place] [id number] MCHC 33.4 G/dL Normal 32.0-36.0 [facility] ([place]) Comment on above: Performed By: #### C MP, ANEU, GFR, CBC, VIDH, ADIFF, TSH, LIPID #### [place] [address] MCV (RBC) [Entitic vol] 90.8 fL Normal 80.0-99.0 [facility] ([place]) Comment on above: Performed By: #### C MP, ANEU, GFR, CBC, VIDH, ADIFF, TSH, LIPID #### [place] [address] Platelet 222 10 3/mcL Normal 150-450 [facility] ([place]) Comment on above: Performed By: #### C MP, ANEU, GFR, CBC, VIDH, ADIFF, TSH, LIPID #### [place] [address] Platelet mean volume (Bld) [Entitic vol] 10.6 fL High 6.6-10.5 [facility] ([place]) Comment on above: Performed By: #### C MP, ANEU, GFR, CBC, VIDH, ADIFF, TSH, LIPID #### [place] [address] RBC 4.41 10 6/mcL Normal 4.10-5.30 [facility] ([place]) Comment on above: Performed By: #### C MP, ANEU, GFR, CBC, VIDH, ADIFF, TSH, LIPID #### [place] [address] WBC 5.1 10 3/mcL Normal 4.5-10.8 [facility] ([place]) Comment on above: Performed By: #### C MP, ANEU, GFR, CBC, VIDH, ADIFF, TSH, LIPID #### [address] [address] CMPon 07-18-2023 Albumin Level 3.9 G/dL Normal 3.2-4.8 [facility] ([place] Comment on above: Performed By: #### T SH #### [place] [id number] Albumin/Globulin [Mass ratio] 1.4 {ratio} Normal 0.9-1.6 [facility] ([place] Comment on above: Performed By: #### T SH #### [place] [id number] ALP [Catalytic activity/Vol] 64 U/L Normal 38-126 [facility] ([place] Comment on above: Performed By: #### T SH #### [place] [id number] ALT [Catalytic activity/Vol] 18 U/L Normal 10-49 [facility] ([place] Comment on above: Performed By: #### T SH #### [place] [id number] AST [Catalytic activity/Vol] 19 U/L Normal 8-34 [facility] ([place] Comment on above: Performed By: #### T SH #### [place] [id number] Bili Total 0.50 mg/dL Normal 0.20-1.20 [facility] ([place]) Comment on above: Result Comment: Use of this assay is not recommended for patients undergoing treatment with eltrombopag due to the potential for falsely elevated results. Performed By: #### T SH #### [place] [id number] BUN/Creatinine Ratio 19.0 ratio Normal 10.0-22.0 [facility] ([place]) Comment on above: Performed By: #### T SH #### [place] [id number] Calcium [Mass/Vol] 9.3 mg/dL Normal 8.7-10.4 [facility] ([place]) Comment on above: Performed By: #### T SH #### [place] [id number] Chloride [Moles/Vol] 109 mmol/L Normal 98-110 [facility] ([place] Comment on above: Performed By: #### T SH #### [address] [address] CO2 [Moles/Vol] 26 mmol/L Normal 22-32 [facility] ([place] Comment on above: Performed By: #### T SH #### [address] [address] Creatinine [Mass/Vol] 0.79 mg/dL Normal 0.50-1.20 [facility] ([place] Comment on above: Performed By: #### T SH #### [address] [address] Electrolyte Balance 7.0 mEq/L Normal 4.0-15.0 [facility] [place] Comment on above: Performed By: #### T SH #### [address] [address] Globulin 2.8 G/dL Normal 1.5-3.8 [facility] ([place] Comment on above: Performed By: #### T SH #### [address] [address] Glucose [Mass/Vol] 79 mg/dL Normal 70-110 [facility] ([place] Comment on above: Performed By: #### T SH #### [address] [address] Potassium [Moles/Vol] 4.9 mmol/L Normal 3.5-5.0 [facility] ([place] Comment on above: Performed By: #### T SH #### [address] [address] Sodium [Moles/Vol] 142 mmol/L Normal 136-145 [facility] ([place] Comment on above: Performed By: #### T SH #### [address] [address] Total Protein 6.7 G/dL Normal 5.7-8.2 [facility] ([place]) Comment on above: Result Comment: No te - New Reference Range in effect 19 Performed By: #### T SH #### [address] [address] Urea nitrogen [Mass/Vol] 15.0 mg/dL Normal 8.0-22.0 [facility] ([place] Comment on above: Performed By: #### T SH #### [address] [address] LIPIDon 07-18-2023 Cholesterol [Mass/Vol] 158 mg/dL Normal 50-199 [facility] ([place] Comment on above: Result Comment: Chol esterol Reference Interval: Less than 200 Desirable 200-239 Borderline high risk 240 and above High risk Performed By: #### T SH #### [place] [id number] Cholesterol in HDL [Mass/Vol] 41 mg/dL Normal 40-59 [facility] ([place] Comment on above: Performed By: #### T SH #### [place] [address] Cholesterol in LDL [Mass/Vol] 89 mg/dL Normal 0-129 [facility] ([place] Comment on above: Performed By: #### T SH #### [place] [id number] Triglyceride [Mass/Vol] 142 mg/dL Normal 3-149 [facility] ([place] Comment on above: Performed By: #### T SH #### [place] [id number] TSHon 07-18-2023 TSH 1.017 mIU/mL Normal 0.550-4.78 0 [facility] ([place]) Comment on above: Result Comment: No te - New Reference Range in effect 19 Performed By: #### T SH #### [place] [id number] VIDHon 07-18-2023 Vit. D 25-Hydroxy 42.0 ng/mL Normal [facility] ([place]) Comment on above: Result Comment: Inte rpretive Values Based on Total 25(OH)D: Severe Deficiency <20 ng/mL Mild to Moderate Deficiency 20-30 ng/mL Optimum Levels 30-100 ng/mL Toxicity Possible >100 ng/mL Performed By: #### T #### [place] [id number] Final Surgical Pathology Rep dov 11-08-2022 Final Surgical Pathology Report . Pathology Reports Accession: Collected Date/Time: Received Date/Time: Pathologist: [id number] 11/05/2022 11:06 EDT 11/05/2022 14:11 EDT EUGENE [...] the patients name, Case # [id number], and back lipoma x 2 are 2 yellow lobulated portions of smooth adipose tissue measuring 1.2 x 0.8 x 0.6 and 3.1 x 1.7 x 1 cm. Sectioning reveals yellow, homogeneous cut surfaces with no areas of hemorrhage or necrosis. RS -1 B. Received in formalin labeled right flank lipoma is a yellow lobulated portion of adipose tissue measuring 2.6 x 1.5 x 1 cm. RS -1 C. Received in formalin labeled right inner thigh lipoma is a yellow smooth portion of adipose tissue measuring 3 x 2.4 x 1 cm. Tissue is sectioned to reveal yellow, glistening, homogeneous cut surfaces. RS -1 D. Received in formalin labeled right anterior upper thigh lipoma is a yellow, lobulated portion of adipose tissue measuring 1.2 x 1 x 0.8 cm. Tissue is bisected. TS -1 Dictated by PACO VANEGAS MICROSCOPIC DESCRIPTION: The microscopic examination is performed, except in the case of Gross Only. Electronically Signed by Pathology Report verified by [facility] EUGENE RIDDLE Sign out Date: 11/08/2022 12:44 Performing Lab: [facility], [address] [place] [id number] [facility] [facility] Pathology Reports Accession: Collected Date/Time: Received Date/Time: Pathologist: [id number] 11/05/2022 11:06 EDT 11/05/2022 14:11 EDT EUGENE RIDDLE MD Disclaimer If ancillary studies were utilized, the following Laboratory Developed Test (LDT) disclaimer will apply: Under CLIA requirements, [facility] Pathology Laboratory is qualified to perform high complexity testing. For all ancillary stains, positive and negative controls stain appropriately. Performance characteristics of immunohistochemical and chromogenic in-situ hybridization tests have been determined by [facility]. These tests are used for clinical purposes, They should not be regarded as investigational or for research. Normal [facility] ([place]) LABORATORYOrdered By: Danya Barnes on 11-05-2022 Beta HCG ( test) Ql (U) Negative (11/05/22 8:56 AM) [facility] Work Phone: .Auto Diffon 10-22-2022 Basophil, Absolute 0.0 10 3/mcL Normal 0.0-0.3 [facility] ([place]) Comment on above: Performed By: #### A DIFF, BMP, GFR, ANEU, CBC #### [address] [address] Basophils/100 WBC (Bld) 0.5 % Normal 0.0-2.5 [facility] ([place]) Comment on above: Performed By: #### A DIFF, BMP, GFR, ANEU, CBC #### [address] [address] Eosinophil, Absolute 0.1 10 3/mcL Normal 0.0-0.7 [facility] ([place]) Comment on above: Performed By: #### A DIFF, BMP, GFR, ANEU, CBC #### [address] [address] Eosinophils/100 WBC (Bld) 2.3 % Normal 0.0-6.0 [facility] ([place]) Comment on above: Performed By: #### A DIFF, BMP, GFR, ANEU, CBC #### [address] [address] Lymphocyte, Absolute 1.2 10 3/mcL Normal 0.9-4.3 [facility] ([place]) Comment on above: Performed By: #### A DIFF, BMP, GFR, ANEU, CBC #### [address] [address] Lymphocytes/100 WBC (Bld) 33.9 % Normal 20.0-40.0 [facility] ([place]) Comment on above: Performed By: #### A DIFF, BMP, GFR, ANEU, CBC #### [address] [address] Monocyte, Absolute 0.4 10 3/mcL Normal 0.1-1.4 [facility] ([place]) Comment on above: Performed By: #### A DIFF, BMP, GFR, ANEU, CBC #### [address] [address] Monocytes/100 WBC (Bld) 11.7 % Normal 2.0-13.0 [facility] ([place]) Comment on above: Performed By: #### A DIFF, BMP, GFR, ANEU, CBC #### [address] [address] Neutrophils/100 WBC (Bld) 51.6 % Normal 50.0-75.0 [facility] ([place]) Comment on above: Performed By: #### A DIFF, BMP, GFR, ANEU, CBC #### [address] [address] .GFRon 10-22-2022 GFR Non- >60 Normal [facility] ([place]) Comment on above: Result Comment: GFR Population [...] A DIFF, BMP, GFR, ANEU, CBC #### [address] [address] GFR >60 Normal [facility] ([place]) Comment on above: Result Comment: GFR Population [...] A DIFF, BMP, GFR, ANEU, CBC #### [address] [address] .NEUABSon 10-22-2022 Neutrophil, Absolute 1.8 10 3/mcL Low 2.3-8.1 [facility] ([place]) Comment on above: Performed By: #### A DIFF, BMP, GFR, ANEU, CBC #### [address] [address] BMPon 10-22-2022 BUN/Creatinine Ratio 18.3 ratio Normal 10.0-22.0 [facility] ([place]) Comment on above: Performed By: #### A DIFF, BMP, GFR, ANEU, CBC #### [address] [address] Calcium [Mass/Vol] 9.0 mg/dL Normal 8.7-10.4 [facility] ([place]) Comment on above: Performed By: #### A DIFF, BMP, GFR, ANEU, CBC #### [address] [address] Chloride [Moles/Vol] 108 mmol/L Normal 98-110 [facility] ([place]) Comment on above: Performed By: #### A DIFF, BMP, GFR, ANEU, CBC #### [address] [address] CO2 [Moles/Vol] 28 mmol/L Normal 22-32 [facility] ([place]) Comment on above: Performed By: #### A DIFF, BMP, GFR, ANEU, CBC #### [address] [address] Creatinine [Mass/Vol] 0.71 mg/dL Normal 0.50-1.20 [facility] ([place]) Comment on above: Performed By: #### A DIFF, BMP, GFR, ANEU, CBC #### [address] [address] Electrolyte Balance 6.0 mEq/L Normal 4.0-15.0 [facility] ([place]) Comment on above: Performed By: #### A DIFF, BMP, GFR, ANEU, CBC #### [address] [address] Glucose [Mass/Vol] 91 mg/dL Normal 70-110 [facility] ([place]) Comment on above: Performed By: #### A DIFF, BMP, GFR, ANEU, CBC #### [address] [address] Potassium [Moles/Vol] 5.0 mmol/L Normal 3.5-5.0 [facility] ([place]) Comment on above: Performed By: #### A DIFF, BMP, GFR, ANEU, CBC #### [address] [address] Sodium [Moles/Vol] 142 mmol/L Normal 136-145 [facility] ([place]) Comment on above: Performed By: #### A DIFF, BMP, GFR, ANEU, CBC #### [address] [address] Urea nitrogen [Mass/Vol] 13.0 mg/dL Normal 8.0-22.0 [facility] ([place]) Comment on above: Performed By: #### A DIFF, BMP, GFR, ANEU, CBC #### [address] [address] CBCon 10-22-2022 Erythrocyte distribution width (RBC) [Ratio] 12.8 % Normal 11.5-15.5 [facility] ([place]) Comment on above: Performed By: #### A DIFF, BMP, GFR, ANEU, CBC #### [place] [id number] Hematocrit (Bld) [Volume fraction] 39.3 % Normal 34.0-46.0 [facility] ([place]) Comment on above: Performed By: #### A DIFF, BMP, GFR, ANEU, CBC #### [place] [address] Hgb 13.2 G/dL Normal 12.0-16.0 [facility] ([place]) Comment on above: Performed By: #### A DIFF, BMP, GFR, ANEU, CBC #### [place] [address] MCH (RBC) [Entitic mass] 30.3 pg Normal 27.0-33.0 [facility] ([place]) Comment on above: Performed By: #### A DIFF, BMP, GFR, ANEU, CBC #### [place] [address] MCHC 33.5 G/dL Normal 32.0-36.0 [facility] ([place]) Comment on above: Performed By: #### A DIFF, BMP, GFR, ANEU, CBC #### [place] [address] MCV (RBC) [Entitic vol] 90.5 fL Normal 80.0-99.0 [facility] ([place]) Comment on above: Performed By: #### A DIFF, BMP, GFR, ANEU, CBC #### [place] [address] Platelet 193 10 3/mcL Normal 150-450 [facility] ([place]) Comment on above: Performed By: #### A DIFF, BMP, GFR, ANEU, CBC #### [address] [place], [place] [address] Platelet mean volume (Bld) [Entitic vol] 10.8 fL High 6.6-10.5 [facility] ([place]) Comment on above: Performed By: #### A DIFF, BMP, GFR, ANEU, CBC #### [place] [address] [place] [address] RBC 4.34 10 6/mcL Normal 4.10-5.30 [facility] ([place]) Comment on above: Performed By: #### A DIFF, BMP, GFR, ANEU, CBC #### [place] [address] [place] [address] WBC 3.4 10 3/mcL Low 4.5-10.8 [facility] ([place]) Comment on above: Performed By: #### A DIFF, BMP, GFR, ANEU, CBC #### [address] [address] LABORATORYOrdered By: SYSTEM SYSTEM on 10-22-2022 Basophils [...] Invalid Interpretation Code 0.0 - 0.7 10^3/mcL AH Workflow SS Eosinophils/100 WBC (Bld) 2.3 % Invalid Interpretation Code 0.0 - 6.0 % Workflow SS Erythrocyte distribution width (RBC) [Ratio] 12.8 % Invalid Interpretation Code 11.5 - 15.5 % Workflow SS GFR/1.73 sq M.predicted among blacks MDRD (S/P/Bld) [Vol rate/Area] ml/min/1.73sqm Invalid Interpretation Code EZBOB Chemistry S Comment on above: Interpretive Data: [...] Invalid Interpretation Code 12.0 - 16.0 G/dL Workflow SS Lymphocytes (Bld) [#/Vol] 1.2 103/mcL Invalid Interpretation Code 0.9 - 4.3 10^3/mcL AH Workflow SS Lymphocytes/100 WBC (Bld) 33.9 % Invalid Interpretation Code 20.0 - 40.0 % AH Workflow SS MCH (RBC) [Entitic mass] 30.3 pg Invalid Interpretation Code 27.0 - 33.0 pg AH Workflow SS MCHC 33.5 G/dL Invalid Interpretation Code 32.0 - 36.0 G/dL AH Workflow SS MCV (RBC) [Entitic vol] 90.5 fL Invalid Interpretation Code 80.0 - 99.0 fL AH Workflow SS Monocytes (Bld) [#/Vol] 0.4 103/mcL [...] Invalid Interpretation Code 3.5 - 5.0 mEq/L ADM SS RBC (Bld) [#/Vol] 4.34 106/mcL [...] ogesterone measurement (mass/volume)Ordered By: Renetta Toribio on 08-21-2023 17-Hydroxyprogester one [Mass/Vol] 178 ng/dL . [facility] Comment on above: Adult Female Follicu lar 15 - 70 Luteal 35 - 290Performed at: - [facility] [place] [address] [place], [place] [id number] Director: Alejandra Fam MD, Phone: [phone] Serum or plasma prolactin me asurement (mass/volume)Ordered By: Renetta Toribio on 10-04-2022 Prolactin [Mass/Vol] 24.1 ng/mL [facility] Comment on above: NORMAL REFERENCE RAN GES FEMALE NON- 2.2 - 30.3 ng/mL 8.1 - 347.6 ng/mL POST-MENOPAUSAL 0.7 - 31.5 ng/mL MALE 2.5 - 17.4 ng/mL TSHon 09-10-2022 TSH 1.178 mIU/mL Normal 0.550-4.78 0 [facility] ([place]) Comment on above: Result Comment: No te - New Reference Range in effect 19 Performed By: #### T SH #### [place] [address] Laboratory - Chemistry and C hemistry - challengeon 07-31-2021 Glucose Ql (U) Negative [facility] Work Phone: Laboratory - Urinalysison Protein Ql (U) Negative [facility] Work Phone: Laboratory - Chemistry and C hemistry - challengeon 07-24-2021 Glucose Ql (U) Negative [facility] Work Phone: Laboratory - Urinalysison Protein Ql (U) Negative [facility] Work Phone: Laboratory - Chemistry and C hemistry - challengeon 07-10-2021 Glucose Ql (U) Negative [facility] Work Phone: Laboratory - Urinalysison Protein Ql (U) Trace [facility] Work Phone: Laboratory - Chemistry and C hemistry - challengeon 06-22-2021 Glucose Ql (U) Negative [facility] Work Phone: Laboratory - Urinalysison Protein Ql (U) Trace [facility] Work Phone: Absolute lymphocyte counton 06-02-2021 Lymphocytes Auto (Unsp spec) [#/Vol] 2.03 10*3/uL 0.83-4.51 [facility] Work Phone: Basophil percentageon 2021 Basophils/100 WBC (Bld) 0.2 % 0-1 [facility] Work Phone: Eosinophils/100 WBC (Bld) 0.8 % 0-5 [facility] Work Phone: Neutrophils (Bld) [#/Vol] 6.4 10*3/uL 2.0-7.7 [facility] Work Phone: Neutrophils/100 WBC (Bld) 69.7 % 47-70 [facility] Work Phone: WBC (Bld) [#/Vol] 9.1 10*3/uL 4.4-11.0 [facility] Work Phone: Blood erythrocytes count (nu mber/volume)on 06-02-2021 RBC (Bld) [#/Vol] 3.60 10*6/uL 4.2-5.4 [facility] Work Phone: Blood hemoglobin measurement (mass/volume)on 06-02-2021 Hemoglobin (Bld) [Mass/Vol] 11.0 g/dL 12.0-15.0 [facility] Work Phone: Blood lymphocytes/100 leukoc yteson 06-02-2021 Lymphocytes/100 WBC (Bld) 22.2 % 19-41 [facility] Work Phone: Blood monocytes/100 leukocyt eson 06-02-2021 Monocytes/100 WBC (Bld) 5.9 % 0-10 [facility] Work Phone: Blood platelet mean volumeon 06-02-2021 Platelet mean volume (Bld) [Entitic vol] 12.9 fL 6.2-12.0 [facility] Work Phone: Determination of erythrocyte mean corpuscular volume (MCV)on 06-02-2021 MCV (RBC) [Entitic vol] 91.9 fL 81-99 [facility] Work Phone: Gestational diabetes screen 1-hour screen with 50g oral glucose loadon 06-02-2021 Glucose 1 Hr post 50 g glucose PO [Mass/Vol] 120 mg/dL 70-140 [facility] Work Phone: Hematocrit Auto (Bld) [Volum e fraction]on 06-02-2021 Hematocrit (Bld) [Volume fraction] 33.1 % 37-47 [facility] Work Phone: Laboratory - Chemistry and C hemistry - challengeon 06-02-2021 Glucose Ql (U) Negative [facility] Work Phone: Free T4 [Mass/Vol] 0.83 ng/dL 0.76-1.46 [facility] Work Phone: Laboratory - Hematology and Cell countson 06-02-2021 Erythrocyte distribution width (RBC) [Entitic vol] 45.1 fL 35.1-43.9 [facility] Work Phone: Erythrocyte distribution width (RBC) [Ratio] 13.3 % 11.6-14.6 [facility] Work Phone: Immature granulocytes/100 WBC (Bld) 1.200 % 0.0-0.9 [facility] Work Phone: Comment on above: IG% - Immature Granu locytes (promyelocytes, myelocytes and metamyelocytes) > 1% indicates that a LEFT SHIFT is Present. MCH (RBC) [Entitic mass] 30.6 pg 27.0-32.0 [facility] Work Phone: Nucleated RBC/100 WBC (Bld) [Ratio] 0 % 0-5 [facility] Work Phone: Laboratory - Urinalysison Protein Ql (U) Negative [facility] Work Phone: MCHC Auto (RBC) [Mass/Vol]on 06-02-2021 MCHC (RBC) [Mass/Vol] 33.2 g/dL 32-36 [facility] Work Phone: No Panel Informationon 06-02 Thyroid Stimulating Hormone (TSH) 1.78 uIU/mL 0.358-3.74 [facility] Work Phone: Platelets bldon 06-02-2021 Platelets (Bld) [#/Vol] 169 10*3/uL 150-450 [facility] Work Phone: Laboratory - Chemistry and C hemistry - challengeon 05-11-2021 Glucose Ql (U) Negative [facility] Work Phone: Laboratory - Urinalysison Protein Ql (U) Negative [facility] Work Phone: Progress Noteon 04-03-2021 Clerical Associate Authentication Interface Message Text We had the pleasure of seeing Heidy Campa in the Heart Clinic at [facility] on 04/03/2021. Mrs. Campa is a [...] Heidy Campa lives with her family in [place], [place]. Today's echocardiogram demonstrated: SUMMARY: 1. Normal echocardiogram. 2. This study is limited in evaluating minor valve abnormalities, septal defects, partial anomalous pulmonary venous connection, and aortic arch abnormalities. 3. The above findings, including the limitations, were discussed with the patient. ------- REASON FOR EXAM: Increased nuchal fold thickness. ------- STUDY AND PROCEDURE DATA: Procedure Description: New ([id number]) . Study status: Routine. Location: Echo laboratory. [...] a patent foramen ovale. There is a [id number] shunt. Left atrium - The atrium is [...] reevaluate the baby at that time. Normal [facility] No Panel Informationon 02-17 Thyroid Stimulating Hormone (TSH) 1.17 uIU/mL 0.358-3.74 [facility] Work Phone: IG, rflx HPV-hion 07-06-2018 DIAGNOSIS Normal [facility] Comment on above: Order Comment: Speci men Comment: [id number] Specimen Comment: Source.............Vagina Specimen Comment: No. of containers..01 ThinPrep Vial Result Comment: NEGA TIVE FOR INTRAEPITHELIAL LESION OR MALIGNANCY. Performed By: #### L 801.4010 #### [place] [address] Note [facility] Comment on above: Order Comment: Speci men Comment: [id number] Specimen Comment: Source.............Vagina Specimen Comment: No. of [...] occur. Performed By: #### L 801.4010 #### [place] [address] Performed By [facility] Comment on above: Order Comment: Speci men Comment: [id number] Specimen Comment: Source.............Vagina Specimen Comment: No. of containers..01 ThinPrep Vial Result Comment: Yousuf Roper Software Manager (ASCP) Performed By: #### L 801.4010 #### [place] [address] Spec Adequacy [facility] Comment on above: Order Comment: Speci men Comment: [id number] Specimen Comment: Source.............Vagina Specimen Comment: No. of containers..01 ThinPrep Vial Result Comment: Sati sfactory for evaluation. Endocervical and/or squamous metaplastic cells (endocervical component) are present. Performed By: #### L 801.4010 #### [place] [address] Test Methodlogy [facility] Comment on above: Order Comment: Speci men Comment: [id number] Specimen Comment: Source.............Vagina Specimen Comment: No. of containers..01 ThinPrep Vial Result Comment: This liquid based ThinPrep(R) pap test was screened with the use of an image guided system. Performed By: #### L 801.4010 #### [place] [address] Test Ordered Pap(IG), rflx HPV-hi [facility] Comment on above: Order Comment: Speci men Comment: [id number] Specimen Comment: Source.............Vagina Specimen Comment: No. of containers..01 ThinPrep Vial Performed By: #### L 801.4010 #### [place] [address] . . Normal . [facility] Comment on above: Order Comment: Speci men Comment: [id number] Specimen Comment: Source.............Vagina Specimen Comment: No. of containers..01 ThinPrep Vial Performed By: #### L 801.4010 #### [place] [address] . Normal [facility] Comment on above: Order Comment: Speci men Comment: [id number] Specimen Comment: Source.............Vagina Specimen Comment: No. of containers..01 ThinPrep Vial Result Comment: The HPV DNA reflex criteria were not met with this specimen result therefore, no HPV testing was performed. Performed at: [address] [id number] Clinical Research Specialist: Anju Rogers MD, Phone: [phone] Performed By: #### L 801.4010 #### [place] [address] [facility] 05-26-2018 [facility] DATE OF SERVICE: 01/2019 CHIEF COMPLAINT: Sinus [...] Singulair, and Claritin. Follow up as needed. MD BERNADETTE Ellis/[id number] SSI File#: [id number] Verified/Reviewed by 05/30/18 [place] KHAN [facility] PATIENT NAME: HEIDY CAMPA Ruth [address] [place] MEDICAL REC #: [id number] [place] [address] [facility] PHYSICIAN Normal [facility] REPORT Normal [facility] 05-17-2018 [facility] $$NEEDS REVIEW$S - b lank [...] 2. Pharyngitis. Antibiotic coverage and discharged. HELDER Patel/[id number] SSI File#: [id number] [facility] PATIENT NAME: HEIDY CAMPA [address] [place] MEDICAL REC #: [id number] [place] [address] [facility] RE[facility] STAT[facility] PHYSICIAN Normal [facility] STATCARE REPORT This is a preliminary report only, as the practitioner review and authentication has not occurred. Normal [facility] URINEon 01-03-2018 EXTERNAL QC DONE? YES Normal [facility] Comment on above: Performed By: #### 2 [id number] ####[facility],[address] [place] [address] [place] [address] INTERNAL QC PASS Normal [facility] Comment on above: Performed By: #### 2 [id number] ####[facility],[address] [place] [address] [place] [address] UR Negative Normal NEGATIVE [facility] Comment on above: Performed By: #### 2 [id number] ####[facility],[address] [place] [address] [place] [address] Free T4on 12-15-2017 T4 free mass conc 1.46 ng/dL Normal 0.93-1.7 [facility] Comment on above: Performed By: #### L 304.0140, L304.0162, L304.0470 ####ML - UH [id number] [facility] [address] TSHon 12-15-2017 Thyrotropin Qn 2.45 uIU/mL Normal 0.45-4.50 [facility] Comment on above: Performed By: #### L 304.0140, L304.0162, L304.0470 ####ML - [facility] [id number] [facility] [address] VITAMIN Don 12-15-2017 VITAMIN D 56.7 ng/mL Normal 30-100 [facility] Comment on above: Performed By: #### L 304.0140, L304.0162, L304.0470 ####ML - [facility] [id number] [place] [address] SURGICAL PATHOLOGY, KEN Don 11-09-2014 [facility] No Panel Information Group B Streptococcus Culture Group B Beta Streptococcus is not isolated. [facility] Work Phone: Vital Signs Date Time Vital Sign Value Performing Clinician Wayne grande 10-08-2024 11:13-0400 Body height 157.[address] Renetta Toribio MD Work Phone: [facility] 10-08-2024 11:13-0400 Body mass index (BMI) [Ratio] 30.7 kg/m2 Dr. Renetta Toribio MD Work Phone: [facility] 10-08-2024 11:13-0400 Body weight 76.[address] Renetta Toribio MD Work Phone: [facility] 10-08-2024 11:13-0400 Diastolic blood pressure 75 mm[Hg] Dr. Renetta Toribio MD Work Phone: [facility] 10-08-2024 11:13-0400 Systolic blood pressure 111 mm[Hg] Dr. Renetta Toribio MD Work Phone: [facility] 11-05-2022 12:45-0400 Blood Pressure [facility] 11-05-2022 12:45-0400 Body temperature 95.9 [degF] [facility] 11-05-2022 12:45-0400 Diastolic Blood Pressure Non-Invasive 69 1 [facility] 11-05-2022 12:45-0400 Heart rate 56 /min [facility] 11-05-2022 12:45-0400 Mean blood pressure 77 mm[Hg] [facility] 11-05-2022 12:45-0400 Respiratory rate 16 /min [facility] 11-05-2022 12:45-0400 Systolic Blood Pressure Non-Invasive 95 1 [facility] 11-05-2022 12:32-0400 Body temperature 97.34 [degF] [facility] 11-05-2022 12:32-0400 Diastolic Blood Pressure Non-Invasive 67 1 [facility] [facility] 11-05-2022 12:32-0400 Heart rate 63 /min [facility] [employer] [facility] 11-05-2022 12:32-0400 Respiratory rate 16 /min [facility] [employer] [facility] 11-05-2022 12:32-0400 Systolic Blood Pressure Non-Invasive 95 1 [facility] [employer] [facility] 11-05-2022 12:31-0400 Heart rate 64 /min [facility] [employer] [facility] 11-05-2022 12:25-0400 Diastolic Blood Pressure Non-Invasive 65 1 [facility] [employer] [facility] 11-05-2022 12:25-0400 Heart rate 64 /min [facility] 11-05-2022 12:25-0400 Mean blood pressure 76 mm[Hg] [facility] 11-05-2022 12:25-0400 Systolic Blood Pressure Non-Invasive 99 1 [facility] [employer] [facility] 11-05-2022 12:20-0400 Respiratory rate 16 /min [facility] 11-05-2022 12:03-0400 Body temperature 96.98 [degF] [facility] 11-05-2022 12:03-0400 Mean blood pressure 69 mm[Hg] [facility] 11-05-2022 11:55-0400 Respiratory Rate - Anes 11 br/min [facility] 11-05-2022 11:50-0400 Respiratory Rate - Anes 17 br/min [facility] 11-05-2022 11:45-0400 Respiratory Rate - Anes 0 br/min [facility] 11-05-2022 11:40-0400 Body temperature 94.62 [degF] [facility] 11-05-2022 11:35-0400 Body temperature 94.41 [degF] [facility] 11-05-2022 11:30-0400 Body temperature 94.12 [degF] [facility] 11-05-2022 08:50-0400 Body height 157.5 cm [facility] 11-05-2022 08:50-0400 Body weight 78.1 kg [facility] 11-05-2022 08:50-0400 Heart rate 82 /min [facility] 10-22-2022 08:19-0400 Blood Pressure Cuff Size [facility] 10-22-2022 08:19-0400 Blood Pressure Location [facility] 10-22-2022 08:19-0400 Blood Pressure Method [facility] [employer] [facility] 10-22-2022 08:19-0400 Body height 157.5 cm [facility] [employer] [facility] 10-22-2022 08:19-0400 Body temperature 98.42 [degF] [facility] [employer] [facility] 10-22-2022 08:19-0400 Body weight 79.3 kg [facility] [employer] [facility] 10-22-2022 08:19-0400 Diastolic Blood Pressure Non-Invasive 71 1 [facility] [employer] [facility] 10-22-2022 08:19-0400 Heart rate 74 /min [facility] [employer] [facility] 10-22-2022 08:19-0400 Systolic Blood Pressure Non-Invasive 103 1 [facility] [employer] [facility] 10-04-2022 15:20-0400 Body height 157.[address] Renetta Toribio Work Phone: [facility] 10-04-2022 15:20-0400 Body mass index (BMI) [Ratio] 32.4 kg/m2 Dr. Renetta Toribio Work Phone: [facility] 10-04-2022 15:20-0400 Body weight 80.[address] Renetta Toribio Work Phone: [facility] 10-04-2022 15:20-0400 Diastolic blood pressure 62 mm[Hg] Dr. Renetta Toribio Work Phone: [facility] 10-04-2022 15:20-0400 Systolic blood pressure 110 mm[Hg] Dr. Renetta Toribio Work Phone: [facility] 07-31-2021 10:48-0400 Body height 157.[address] Renetta Toribio Work Phone: [facility] Work Phone: 07-31-2021 10:47-0400 Body mass index (BMI) [Ratio] 35.8 kg/m2 Dr. Renetta Toribio Work Phone: [facility] Work Phone: 07-31-2021 10:47-0400 Body weight 88.[address] Renetta Toribio Work Phone: [facility] Work Phone: 07-31-2021 10:47-0400 Diastolic blood pressure 72 mm[Hg] Dr. Renetta Toribio Work Phone: [facility] Work Phone: 07-31-2021 10:47-0400 Systolic blood pressure 110 mm[Hg] Dr. Renetta Toribio Work Phone: [facility] Work Phone: 07-24-2021 09:36-0400 Body mass index (BMI) [Ratio] 35.5 kg/m2 Dr. Renetta Toribio Work Phone: [facility] Work Phone: 07-24-2021 09:36-0400 Body weight 88.[address] Renetta Toribio Work Phone: [facility] Work Phone: 07-24-2021 09:36-0400 Diastolic blood pressure 70 mm[Hg] Dr. Renetta Toribio Work Phone: [facility] Work Phone: 07-24-2021 09:36-0400 Systolic blood pressure 122 mm[Hg] Dr. Renetta Toribio Work Phone: [facility] Work Phone: 07-10-2021 10:02-0400 Body mass index (BMI) [Ratio] 34.9 kg/m2 Dr. Renetta Toribio Work Phone: [facility] Work Phone: 07-10-2021 10:02-0400 Body weight 86.[address] Renetta Toribio Work Phone: [facility] Work Phone: 07-10-2021 10:02-0400 Diastolic blood pressure 68 mm[Hg] Dr. Renetta Toribio Work Phone: [facility] Work Phone: 07-10-2021 10:02-0400 Systolic blood pressure 120 mm[Hg] Dr. Renetta Toribio Work Phone: [facility] Work Phone: 06-22-2021 10:05-0400 Body mass index (BMI) [Ratio] 34.4 kg/m2 Dr. Renetta Toribio Work Phone: [facility] Work Phone: 06-22-2021 10:05-0400 Body weight 85.[address] Renetta Toribio Work Phone: [facility] Work Phone: 06-22-2021 10:05-0400 Diastolic blood pressure 80 mm[Hg] Dr. Renetta Toribio Work Phone: [facility] Work Phone: 06-22-2021 10:05-0400 Systolic blood pressure 132 mm[Hg] Dr. Renetta Toribio Work Phone: [facility] Work Phone: 06-02-2021 15:01-0400 Body mass index (BMI) [Ratio] 34.2 kg/m2 Dr. Renetta Toribio Work Phone: [facility] Work Phone: 06-02-2021 15:01-0400 Body weight 84.[address] Renetta Toribio Work Phone: [facility] Work Phone: 06-02-2021 15:01-0400 Diastolic blood pressure 62 mm[Hg] Dr. Renetta Toribio Work Phone: [facility] Work Phone: 06-02-2021 15:01-0400 Systolic blood pressure 110 mm[Hg] Dr. Renetta Toribio Work Phone: [facility] Work Phone: 06-02-2021 15:01-0400 Body height 157.48 cm No Primary Care Physician [facility] Work Phone: 06-02-2021 15:01-0400 Body mass index (BMI) [Ratio] 34.2 kg/m2 No Primary Care Physician [facility] Work Phone: 06-02-2021 15:01-0400 Body weight 84.93 kg No Primary Care Physician [facility] Work Phone: 06-02-2021 15:01-0400 Diastolic blood pressure 62 mm[Hg] No Primary Care Physician [facility] Work Phone: 06-02-2021 15:01-0400 Systolic blood pressure 110 mm[Hg] No Primary Care Physician [facility] Work Phone: 05-11-2021 14:08-0400 Body mass index (BMI) [Ratio] 33.5 kg/m2 Dr. Renetta Toribio Work Phone: [facility] Work Phone: 05-11-2021 14:08-0400 Body weight [address] Renetta Toribio Work Phone: [facility] Work Phone: 05-11-2021 14:08-0400 Diastolic blood pressure 72 mm[Hg] Dr. Renetta Toribio Work Phone: [facility] Work Phone: 05-11-2021 14:08-0400 Systolic blood pressure 118 mm[Hg] Dr. Renetta Toribio Work Phone: [facility] Work Phone: 05-11-2021 14:08-0400 Body mass index (BMI) [Ratio] 33.5 kg/m2 No Primary Care Physician [facility] Work Phone: 05-11-2021 14:08-0400 Body weight 83 kg No Primary Care Physician [facility] Work Phone: 05-11-2021 14:08-0400 Diastolic blood pressure 72 mm[Hg] No Primary Care Physician [facility] Work Phone: 05-11-2021 14:08-0400 Systolic blood pressure 118 mm[Hg] No Primary Care Physician [facility] Work Phone: 04-13-2021 16:15-0500 Body mass index (BMI) [Ratio] 32.9 kg/m2 Dr. Renetta Toribio Work Phone: [facility] Work Phone: 04-13-2021 16:15-0500 Body weight 81.[address] Renetta Toribio Work Phone: [facility] Work Phone: 04-13-2021 16:15-0500 Diastolic blood pressure 66 mm[Hg] Dr. Renetta Toribio Work Phone: [facility] Work Phone: 04-13-2021 16:15-0500 Systolic blood pressure 102 mm[Hg] Dr. Renetta Toribio Work Phone: [facility] Work Phone: 04-13-2021 15:15-0500 Body mass index (BMI) [Ratio] 32.9 kg/m2 No Primary Care Physician [facility] Work Phone: 04-13-2021 15:15-0500 Body weight 81.64 kg No Primary Care Physician [facility] Work Phone: 04-13-2021 15:15-0500 Diastolic blood pressure 66 mm[Hg] No Primary Care Physician [facility] Work Phone: 04-13-2021 15:15-0500 Systolic blood pressure 102 mm[Hg] No Primary Care Physician [facility] Work Phone: 03-16-2021 13:31-0500 Diastolic blood pressure 70 mm[Hg] No Primary Care Physician [facility] Work Phone: 03-16-2021 13:31-0500 Systolic blood pressure 112 mm[Hg] No Primary Care Physician [facility] Work Phone: 03-16-2021 13:13-0500 Body mass index (BMI) [Ratio] 32.3 kg/m2 No Primary Care Physician [facility] Work Phone: 03-16-2021 13:13-0500 Body weight 80.28 kg No Primary Care Physician [facility] Work Phone: 02-17-2021 12:37-0500 Body mass index (BMI) [Ratio] 32.8 kg/m2 No Primary Care Physician [facility] Work Phone: 02-17-2021 12:37-0500 Body weight 81.41 kg No Primary Care Physician [facility] Work Phone: 02-17-2021 12:37-0500 Diastolic blood pressure 72 mm[Hg] No Primary Care Physician [facility] Work Phone: 02-17-2021 12:37-0500 Systolic blood pressure 126 mm[Hg] No Primary Care Physician [facility] Work Phone: Encounters Encounter Date Encounter Type Care Provider Facility Start: 11-07-2024 End: 11-07-[address] Renetta Toribio MD Work Phone: -[facility] Start: 11-07-2024 End: 11-07-2024 Patient encounter procedure LAKESHIA HOSKINS MUTUAL FUND ANALYST-C -[facility] Work Phone: Start: 11-07-2024 End: 11-07-2024 ambulatory LAKESHIA HOSKINS Facility:[facility] Start: 10-08-2024 Encounter for gynecological examination (general) (routine) without abnormal findings Renetta Toribio [facility] Start: 10-08-2024 End: 10-08-[address] Renetta Toribio MD -[facility] Work Phone: Start: 10-08-2024 End: 10-08-[address] Renetta Toribio MD [facility] Start: 10-08-2024 End: 10-08-[address] Renetta Toribio MD Work Phone: -[facility] Start: 10-08-2024 End: 10-08-2024 ambulatory Renetta Toribio Facility:[facility] Start: 07-24-2024 End: 07-24-2024 ambulatory DEJUAN CARLOS UROLOGIST PHYSICIAN-PRINT MANAGER Facility:A Start: 07-16-2024 End: 07-16-2024 ambulatory DEJUAN BOSLER UROLOGIST PHYSICIAN-PRINT MANAGER Facility:A Start: 05-04-2024 End: 05-04-2024 ambulatory DEJUAN BOSLER UROLOGIST PHYSICIAN-PRINT MANAGER Facility:[facility] Start: 07-18-2023 End: 07-18-2023 ambulatory DEJUAN BOSLER UROLOGIST PHYSICIAN-PRINT MANAGER Facility:A Start: 11-18-2022 End: 11-18-2022 ambulatory [facility] Facility:A Start: 11-05-2022 End: 11-05-2022 ambulatory [facility] Facility:A Start: 11-05-2022 End: 11-05-2022 SAME DAY STAY [facility] [employer] DO [facility] Start: 10-22-2022 End: 10-22-2022 Admission to establishment [facility] Start: 10-22-2022 End: 10-22-2022 ambulatory [facility] Facility:A Start: 10-14-2022 End: 10-14-2022 ambulatory [facility] Facility:A Start: 10-04-2022 End: 10-04-[address] Renetta Toribio Work Phone: [facility] Work Phone: Start: 10-04-2022 End: 10-04-[address] Renetta Toribio Work Phone: [facility]-Laboratory Work Phone: Start: 10-04-2022 End: 10-04-[address] Renetta Toribio Work Phone: [facility] Work Phone: Start: 09-10-2022 End: 09-14-2022 ambulatory [facility] Start: 08-03-2022 End: 08-03-2022 ambulatory [facility] Facility:A Start: 08-03-2022 End: 08-03-2022 Patient encounter procedure [facility] Start: 07-31-2021 End: 07-31-[address] Renetta Toribio Work Phone: [facility] Start: 07-31-2021 End: 07-31-[address] Renetta Toribio Work Phone: [facility]-Laboratory, Specimen Start: 07-29-2021 End: 07-29-[address] Renetta Toribio Work Phone: [facility]-Ultrasound, [facility] Start: 07-24-2021 End: 07-24-[address] Renetta Toribio Work Phone: [facility] Start: 07-10-2021 End: 07-10-[address] Renetta Toribio Work Phone: [facility] Start: 07-01-2021 End: 07-01-[address] Renetta Toribio Work Phone: [facility], [facility] Start: 06-22-2021 End: 06-22-[address] Renetta Toribio Work Phone: [facility] Start: 06-02-2021 End: 06-02-2021 Patient encounter procedure No Primary Care Physician [facility] Start: 05-11-2021 End: 05-11-2021 Patient encounter procedure No Primary Care Physician [facility] Start: 04-13-2021 End: 04-13-2021 Patient encounter procedure No Primary Care Physician [facility] Start: 03-16-2021 End: 03-16-2021 Patient encounter procedure No Primary Care Physician [facility] Start: 02-17-2021 End: 02-17-2021 Patient encounter procedure No Primary Care Physician [facility]Laboratory Start: 02-17-2021 End: 02-17-2021 Patient encounter procedure No Primary Care Physician [facility] Start: 05-26-2018 Patient encounter procedure Javid Mon Facility:[facility] Start: 05-17-2018 Patient encounter procedure Damon Meeks Kris Facility:[facility] Start: 01-03-2018 End: 01-03-2018 Patient encounter procedure MADELYN PUGH [facility] Start: 12-15-2017 Patient encounter procedure GIBRAN KING Facility:[facility] Start: 11-11-2014 Documentation procedure Jonah Carrington MD Work Phone: [facility] Start: 11-11-2014 Historic EMR Jonah Carrington MD Work Phone: [facility] Procedures Date Procedure Procedure Detail Performing Clinician Start: 11-07-2024 Vitamin D, 25-hydrox y measurement Dr. Renetta Toribio MD Work Phone: Comment on above: Vitamin D StatusDefi ciency: <20 ng/mL (50nmol/L)Insufficiency: 20-30 ng/mL (50-75 nmol/L)Sufficiency: 30-100 ng/mL (75-250 nmol/L)Toxicity: >100 ng/mL (>250 nmol/L) Start: 10-08-2024 Liquid based cervica l cytology screening Dr. Renetta Toribio MD Work Phone: Comment on above: NEGATIVE FOR INTRAEP ITHELIAL LESION OR MALIGNANCY. This liquid based inPrep(R) pap test was screened withthe use of an image guided system. Start: 07-29-2021 Ultrasound scan for growth Dr. Renetta Toribio Work Phone: Start: 07-01-2021 Ultrasound scan for growth Dr. Renetta Toribio Work Phone: Start: 09-25-2017 Excision of lipoma DANE DUNCAN [employer] Comment on above: upper buttock Start: 09-25-2017 Mass (morphologic abnormality) [employer] Start: 02-14-2017 Endoscopic balloon [facility] ostium [facility] paranasal sinus [facility] Start: 02-14-2017 Other (qualifier value) [employer] Comment on above: sinus surgery proced ure Start: 11-09-2014 SURGICAL PATHOLOGY, JAIRO Carrington MD Work Phone: Start: 10-15-2014 section [facility] [employer] Start: 02-14-2011 Laser assisted in si tu keratomileusis [facility] Start: 02-14-2011 Other (qualifier value) [employer] Comment on above: lasix Start: 02-15-2008 Surgical removal of impacted third molar tooth [employer] B Streptococcu s Culture Dr. Renetta Toribio Work Phone: H/O: section History of delivery No Primary Care Physician Comment on above: previous cs for NRFH Ts. successful 03/2020 Plan of Treatment Date Care Activity Detail Author Start: 10-04-2022 Dehydroepiandrostero ne sulfate (DHEA-S) [Mass/volume] in Serum or Plasma [facility] Start: 10-04-2022 Testosterone Free [M ass/volume] in Serum or Plasma [facility] Liquid based cervica l cytology screening [facility] Work Phone: Immunizations Immunization Date Immunization Notes Care Provider Tami gary 06-02-2021 diphtheria, tetanus toxoids and acellular pertussis vaccine, unspecified formulation No Primary Care Physician [facility] Work Phone: 06-02-2021 tetanus toxoid, redu melvina diphtheria toxoid, and acellular pertussis vaccine, adsorbed No Primary Care Physician [facility] 01-21-2021 SARS-CoV-2 mRNA (tozinameran) vaccine [facility] 12-22-2020 influenza virus vaccine, unspecified formulation [facility] 04-03-2020 SARS-CoV-2 (COVID-19 ) mRNA-1273 vaccine [facility] 02-27-2020 Covid (Moderna) No Primary C are Physician [facility] 01-14-2020 tetanus toxoid, redu melvina diphtheria toxoid, and acellular pertussis vaccine, adsorbed No Primary Care Physician [facility] 01-14-2020 diphtheria, tetanus toxoids and acellular pertussis vaccine, unspecified formulation No Primary Care Physician [facility] Work Phone: 11-26-2019 Flucelvax Quad (PF) (flu vac qs 2019(4 yr up)CD(PF)) 60 mcg (15 mcg x No Primary Care Physician [facility] Work Phone: 11-26-2019 influenza virus vaccine, unspecified formulation [facility] 11-26-2019 influenza, injectable,quadrivalent , preservative free, pediatric No [facility] Phys[facility] Payers Date Payer Category Payer Self-pay [id number] 2024 Unknown [id number] 2017 Unknown [id number] 1986 Unknown [id number] 2.16.84 [id number] 1986 Unknown [id number] 2.16.8 [id number] 1986 Unknown [id number] 2.16.8 [id number] 1986 Unknown [id number] 2.16.8 [id number] 1986 Unknown [id number] 2.16.8 [id number] 1986 Unknown [id number] 2.16.8 [id number] 1986 Unknown [id number] 2.16.8 [id number] 1986 Unknown [id number] 2.16.8 [id number] 1986 Unknown [id number] 2.16.8 [id number] 1986 Unknown [id number] 2.16. [id number] 1986 Unknown [id number] 2.16.8 [id number] Unknown [id number] 2.16.8 [id number] Unknown [id number] 2.16.8 [id number] Unknown [id number] 2.16.8 [id number] Unknown [id number] 2.16.8 [id number] Unknown [id number] 2.16.8 [id number] Unknown [id number] 2.16.8 [id number] Social History Date Type Detail Facility Start: 06-02-2021 End: 10-04-2022 Tobacco smoking status NHIS Unknown if ever smoked [facility] Start: 1985 Sex Assigned At Female A [facility] Start: 07-25-2019 End: 10-08-2024 Tobacco smoking status Never smoked tobacco (finding) [facility] Start: 1985 Sex Assigned At Not on file [facility] Gender identity Not on file [facility] Functional Status Date Assessment Result Facility 11-05-2022 Functional Status ice on [facility] 11-05-2022 Functional Status Maintained [facility] 10-22-2022 Functional Status Sensory Deficits None A [facility] Mental Status Date Assessment Result Facility 11-05-2022 [facility]-01-2021 to 10-08-2024 Note Date & Type Note Facility 10-08-2024 Evaluation note Diagnosis Onset Date Resolution Secondary oligomenorrhea acute October 08, 2024 11:10am Stress incontinence acute Augus t 2024 11:10am Encounter for routine gynecological examination noneactive October 08 11:10am [facility] Work Phone: [phone] Progress [facility] [address] [place] [address], [address] [place] [address] OFFICE VISIT Date of Service: 10/08/24 MR#: [id number] Acct: [id number] Name: HEIDY CAMPA Rep #: [id number] : 1985 Provider: Dr. 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: No Is patient in pain?: No [...] Chronic sinus infection Thyroid disorder Surgical History [place] teeth removed Hx of LASIK delivery delivered H/O rhinoplasty Family History Mother Hypertension Hyperlipidemia TIA (transient ischemic attack) Father Hypertension Grandmother Uterine cancer, Onset Age: 60 Grandfather Cancer stomach cancer (paternal) Social History (Updated 10/08/24 @ 11:17 by Christina Banda) household members: family housing: house number of children: 3 current occupational status: employed 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 03/26/20 Low 38 live - full term 7lbs 1oz Male 11 hours epidural [facility] GP 08/18/21 [place] 39 live - full term Male [facility] Dr. Toribio Delivery Date: Last Updated by: [...] health care screenings: PCP Carlos Hutchison). Sees MyOBGYNNP for progesterone Female Reproductive History Last Menstrual [...] acute distress, well developed and well groomed HENMT Head: normal to inspection and normocephalic Ears: [...] lucretia RODRIGUEZ> Date _ Renetta Toribio MD Cosigner Signature: Date (if applicable) CC: ~ [facility]09-22-2023 Hospital Discharge instructions Patient Education 11/05/2022 [...] and water are not available, use hand nickel operator. ?Change your dressing as told by your [...] for you to drive. General instructions Take [id number] and prescription medicines only as told by [...] 04/15/2016 Document Revised: 09/23/2016 Document Reviewed: 04/15/2016 [email or web address] Patient Education 2020 [employer]. Follow Up Care 10/14/2022 16:12:37 With:RODO VALERO DO, Surgery Address: [address] [place] [address] [place] [address]- [phone] When: Unknown Comments:In 2 weeks [facility] 09-22-2023 Summary of episode note Discharge Instructions Thank you for allowing [facility] to assist you with your healthcare needs. The following is importantdischarge information regarding your hospital visit. Your Care Team DEJUAN GONZALEZ APRN-PRINT MANAGER Your Diagnosis Post-op pain What to do next Scheduled Follow-Up Appointments Appointment Type When With Where Contact InformationPC Nurse Lab 07/18/2023 09:15 AM EDT [facility] [address] [place] [address] PC Wellness Annual w/Labs 07/25/2023 10:00 AM EDT DEJUAN GONZALEZ UROLOGIST PHYSICIAN-PRINT MANAGER [facility] [address] [place] [address] Follow Up Appointments Follow Up with RODO VALERO DO, Surgery When Why: In 2 weeks Where: [address] [facility] [place] [address]- [phone] The Following Activity and Diet Have Been [...] When Why Instructions Last Dose New acetaminophen-hydrocodone (Booker 325- 5 mg oral tablet) 1 tab(s) by mouth Every 4 hours as needed for as needed for pain Post-op pain Duration: 2 Days Pickup at [id number] Unchanged levothyroxine (levothyroxine 100 mcg (0.1 mg) oral tablet) 1 tab(s) by mouth Once a day (in the morning) Unchanged multivitamin (Multiple Vitamins oral capsule) 1 cap by mouth Once a day Pharmacy Information [id number]: [address] [place], [place] [phone] Please take this list to your next [...] and water are not available, use hand nickel operator. ? Change your dressing as told by [...] for you to drive. General instructions Take bncn-anr-fverjah and prescription medicines only as told by [...] 04/15/2016 Document Revised: 09/23/2016 Document Reviewed: 04/15/2016 [email or web address] Patient Education 2020 [employer]. Additional Information VACCINATE! IT SAVES LIVES! Members of the community who have not yet received the COVID-19 vaccine and would like to receive it can visit one of [facility] vaccine clinics. There are many vaccine clinic locations within the [facility]. For locations and available times, please visit [email or web address] It is important to note that some COVID mobile vaccine clinics are held outdoors and may be canceled in rainy or stormy conditions. To learn more about pediatric vaccinations (ages 5-11), we invite you to visit the [facility] webpage. [email or web address] learn more about the COVID-19 vaccine, we invite you to visit the CDC website for a list of frequently asked questions.https://www.cdc.gov/coronavirus/2019-ncov/vaccines/faq.html [facility] Patient Portal Access Instructions: Stay connected with your healthcare team and access your personal medical information anytime with the [facility] Patient Portal. Please follow the directions below to create your [facility] account: 1.Access the email account you provided upon registration to the hospital/physician office.2.Look for an invitation email from [facility].3.Open the email and access the invitation link: AcceptInvitation to [facility].4.Fill in the required amaya to create your account. To access your account, visit [email or web address]. Click the blue button labeled Access Patient Portal and then log in with the username [...] who you will allowto register on the [facility] Patient Portal for access to your information. You can also access the [facility] Patient Portal on the [facility] aleksandra. Simply click on Patient Portal and then log into your account. If you would like to receive a full copy of your medical records, please contact the [facility] Medical Records Department by calling [phone], Tuesday through Tuesday between 8 a.m. and [...] Call your local pharmacy or go to [email or web address] to find one close to you.3.Make use of household items: Use cat litter or old coffee grounds to dispose medications if other options arenot available. Mix your drugs with these household products, seal them in an airtight container andthrow it into the garbage. Call [facility]: [phone] to be sure your drugs can be [...] aware that I should contact my doctor. 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 Signature: Date/Time: Relationship to Patient: Witness Name/Signature: Date/Time: [facility] [id number] Anesthesiology Consult note Patient: HEIDY CAMPA Age: [...] JOANA AGUERO MD on 11/05/2022 12:46 PM [facility] [id number] Anesthesiology Consult note Patient: HEIDY CAMPA Age: [...] Problem list: Medical Hypothyroidism / SNOMED CT 91060213 / Confirmed Intermittent palpitations / SNOMED CT 975375955 / Confirmed Hypertriglyceridemia / SNOMED CT 351477662 / Confirmed Well adult exam / SNOMED CT 930667835 / Confirmed Dietary counseling / SNOMED CT 373700459 / Confirmed Exercise counseling / SNOMED CT 903075233 / Confirmed Depression / SNOMED CT 89432360 / Confirmed Fungal infection of nail / SNOMED CT 9582625222 / Confirmed BMI 30.0-30.9,adult / SNOMED CT 816835443 / Confirmed Class 1 obesity / SNOMED CT 437687333452299 / Confirmed Multiple lipomas / SNOMED CT 040796900 / Confirmed Umbilical hernia / SNOMED CT 7283852723 / Confirmed Tinnitus / SNOMED CT 843529613 / Confirmed Seasonal allergy / SNOMED CT 3265783086 / Confirmed Sinus congestion / SNOMED CT 379904778 / Confirmed, Active Problems (15) BMI 30.0-30.9,adult Class 1 obesity Depression Dietary counseling Exercise counseling Fungal infection of nail Hypertriglyceridemia Hypothyroidism Intermittent palpitations Multiple lipomas Seasonal allergy Sinus congestion Tinnitus Umbilical hernia Well adult exam Histories Past Medical History: Resolved Clinical diagnosis of COVID-19 (8366191462): Onset in the month of 02/2022 at 36 years Resolved. Vitamin D deficiency (42951622): Resolved. Recurrent sinusitis (471689499): Resolved. Right ankle pain (255229770): Resolved. Foot pain (334117294): Resolved. Iron deficiency anemia (101182393): Resolved. Family History: Hypertension Father High blood pressure Mother Brother Grandparent Stroke Mother Grandparent Heart attack Grandparent Uterine cancer Maternal Grandmother Procedure history: Excision of lipoma (199782764) on 09/25/2017 at 32 Years. Comments: 10/22/2022 8:33 ROS Chávez upper buttock Balloon sinuplasty (8952166249) in 2018 at 32 Years. Other (497170424) on 02/14/2017 at 31 Years. Comments: 05/01/2018 9:12 Francisca Liu MA sinus surgery procedure section (70349514) in the month of 10/2014 at 29 Years. LASIK (5574196555) in 2011 at 26 Years. Extraction of impacted wisdom tooth (838329943) on 02/15/2008 at 22 Years. Social History [...] Resp Rate 16 br/min (NOV 05 08:50) PME237 mmHg (NOV 05 08:50) DBP72 mmHg (NOV 05 08:50) Measurements from flowsheet : Measurements 11/05/2022 8:50 EDT Height 157.5 cm Height in inches 62 inch(es) Admission Weight 78.1 kg Weight Lbs 171.8 lb Weight Method Actual [place] Body Weight 50.12 kg Type of Scale [...] evident Teaching Method Explanation Preferred Spoken Language Dominican Preferred Written Language Dominican Family/Caregiver Prefer Spoken Language Dominican Family/Caregiver Prefer Written Language Dominican Surgical Site Infection Prevention SSI FAQ provided, [...] Weight Lbs 171.8 lb Weight Method Actual [place] Body Weight 50.12 kg Type of Scale [...] no difficulties Skin Temperature Warm Skin Description [place], Dry Skin Integrity Intact Extremity Movement Equal [...] EDT Designated Person #1 We May Share PHI Kumar Campa ([phone]) Designated Person #1 Relationship Spouse Privacy Restrictions [...] after midnight, No makeup, No jewelry, Responsible Republican, Aware of surgery location, Pre-op education done, 1 bottle CHG wash with instructionsgiven, Instructed to take ordered medications SN - Preprocedure Comments Spoke with patient, Verbalizes/Nonverbally indicates understanding Barriers to Learning None evident Teaching Method Explanation, Printed materials Preferred Spoken Language Dominican Preferred Written Language Dominican Teaching Evaluation Verbalizes/Nonverbally indicates understanding Safety Brochure Information Reviewed Yes Derick Levine Video Viewed No Information Given by Patient [...] after midnight, No makeup, No jewelry, Responsible Republican, Aware of surgery location, Pre-op education done, 1 bottle CHG wash with instructionsgiven, Instructed to take ordered medications (Modified) SN - Preprocedure Comments Spoke with patient, Verbalizes/Nonverbally indicates understanding Admission Note-Nursing Patient History PreTest (Modified) . Assessment and Plan [place] Society of Anesthesiologists (ASA) physical status classification: Class II. Anesthetic Preoperative Plan Anesthetic technique: MAC. Induction: intravenously. Maintenance airway: Mask, with ETCO2 monitor. Postoperative pain management: Per surgeon. Risks discussed: nausea, vomiting, headache, sore throat, dental injury, hypotension, allergic reaction, serious complications. Informed consent: signed by patient. Notes: hypothyroid, BMI 31.48, depression. Digitally Signed by JOANA AGUERO MD on 11/05/2022 09:59 AM [facility] [id number] [facility] genetic counseling note Consultation has been requested [...] talked about the options for return to [facility] for echo vs Pediatric cardiology and they elected to have pediatric echo to be performed as soon as possible given our discussion today. They were offered genetic screening Vistara test and this test is designed to screen for 30 autosomal dominant or X-linked dominant conditions, some of which are associated with congenital heart disease such as Edwardo's. Follow Up The couple expressed understanding of the above information. 1. Declined invasive screening 2. Declined Vistara today 3. Await full clearance of cardiac anatomy, if normal further scans for growth can be performed in OB office in [place] or remote with [facility] in [place] 4. I discussed this finding is not [...] spent counseling and coordinating care. Sally Gill [facility] Future Appointments Appointment Date:09/16/2022 09:15:00 AM Scheduled Provider: Location:[facility] Appointment Type:PC Nurse Lab Appointment Date:09/16/2022 10:45:00 AM Scheduled Provider:RODO VALERO DO Location:[facility] Appointment Type:GS OV Check Up Appointment Date:07/18/2023 09:15:00 AM Scheduled Provider: Location:[facility] Appointment Type:PC Nurse Lab Appointment Date:07/25/2023 10:00:00 AM Scheduled Provider:DEJUAN GONZALEZ Location:[facility] Appointment Type:PC Wellness Annual w/Labs Future Scheduled Tests Laboratory* Thyroid Stimulating Hormone 09/16/22 * Thyroid Stimulating Hormone 07/23/23 * Complete Blood Count 07/23/23 * Lipid Profile 07/23/23 * Vitamin D Level 07/23/23 * Complete Metabolic Panel 07/23/23 [facility] evaluation + Plan note Future Appointments Appointment Date:07/18/2023 09:15:00 AM Scheduled Provider: Location:[facility] Appointment Type:PC Nurse Lab Appointment Date:07/25/2023 10:00:00 AM Scheduled Provider:DEJUAN GONZALEZ Location:[facility] Appointment Type:PC Wellness Annual w/Labs Future Scheduled Tests Laboratory* Thyroid Stimulating Hormone 07/23/23 * Complete Blood Count 07/23/23 * Lipid Profile 07/23/23 * Vitamin D Level 07/23/23 * Complete Metabolic Panel 07/23/23 [facility] evaluation note* Diagnosis Onset Date Resolution Status Depression [...] antepartum acute Supervision of other normal acute [facility] Work Phone: Evaluation note* Diagnosis Onset Date [...] antepartum acute Supervision of other normal acute [facility] Work Phone: Evaluation note* Diagnosis Onset Date Resolution Status Secondary oligomenorrhea acu te Encounter for routine gynecological examination noneactive [facility] Work Phone: Evaluation note* Diagnosis Onset Date Resolution Status Admit Date Secondary oligomenorrhea acute October 08, 2024 11:10am Stress incontinence acute Augus 2024 11:10am Encounter for routine gynecological examination noneactive October 08, 2024 11:10am [facility] Work Phone: Hospital course Narrative No data available for this section [facility] Hospital Discharge instructions No data available for this section [facility] Progress note No data available for this section [facility] Promejzp note Author Renetta Toribio [facility] Note Date/Time October 08, 2024 11 :45am [facility] [address], [address] [place] [address] OFFICE VISIT Date of Service: 10/08/24 MR#: [id number] Acct: [id number] Name: HEIDY CAMPA Rep #: [id number] : 1985 Provider: Dr. 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: No Is patient in pain?: No [...] menopausal: No Patient : No : [facility] Vaginal after Depression Lab test positive for detection of COVID-19 virus Nuchal fold thickening on ultrasound Chronic sinus infection Thyroid disorder Surgical History [place] teeth removed Hx of LASIK delivery delivered H/O rhinoplasty Family History Mother Hypertension Hyperlipidemia TIA (transient ischemic attack) Father Hypertension Grandmother Uterine cancer, Onset Age: 60 Grandfather Cancer stomach cancer (paternal) Social History (Updated 10/08/24 @ 11:17 by Christina Banda) household members: family housing: house number of children: 3 current occupational status: employed 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 Carrington 03/26/20 Low 38 live - full term 7lbs 1oz Male 11 hours epidural [facility] GP 08/18/21 [place] 39 live - full term Male [facility] Dr. Toribio Delivery Date: Last Updated by: [...] due Other preventative health care screenings: PCP Gonzalez ([facility]). Sees Edvin for progesterone Female Reproductive History Last Menstrual [...] acute distress, well developed and well groomed HENGA Head: normal to inspection and normocephalic Ears: [...] Cosigner Signature: Date (if applicable) CC: ~ [facility] Work Phone: Reason for referral (narrative)No reason for referral information availableKaiser [facility] Work Phone: Summary Purpose Family History No Family History Records Found Relationship Condition Age at Onset Recorded Date/T suleman mother Hypertension Unknown Hyperlipidemia Unknown Transient ischemic attack Unknown father Hypertension Unknown grandmother Malignant neoplasm of uterus 60 grandfather Malignant neoplasm Unknown Advance Directives No Advanced Directives Records Found Advance Directive Response Recorded Date/ Time Living Will No March 26 6:16am Power of It 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 No March 26, 2020 6:16am Advance Directive Response Recorded Date/ Time Living Will No August 18, 2021 5 :07am Power of It 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 No August 18, 2021 5:07am Chief Complaint [...] Supervision of other normal Chief 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, E-ORDER Reason for Visit Secondary oligomenor bryanna Encounter for routine gynecological examination Chief Complaint Admit Date 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 08, 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 11 :10am Reason for Visit Admit Date Secondary oligomenorrhea October 08 11:10am Stress incontinence October 08, 2024 11 :10am Encounter for routine gynecological exam ination October 08, 2024 11:10am Additional Source Comments INFORMATION SOURCE (unrecogn ized section and content) DATE CREATED AUTHOR 01/21/2018 [facility] DATE CREATED AUTHOR AUTHOR'S ORGANIZ ATION 01/23/2018 [facility] DATE CREATED AUTHOR AUTHOR'S ORGANIZ ATION 05/30/2018 [facility] DATE CREATED AUTHOR AUTHOR'S ORGANIZ ATION 07/20/2018 [facility] DATE CREATED AUTHOR AUTHOR'S ORGANIZ ATION 04/03/2021 [facility] DATE CREATED AUTHOR AUTHOR'S ORGANIZ ATION 07/19/2023 [facility] ([place] DATE CREATED AUTHOR AUTHOR'S ORGANIZ ATION 05/05/2024 [facility] DATE CREATED AUTHOR AUTHOR'S ORGANIZ ATION 07/28/2024 [facility] DATE CREATED AUTHOR AUTHOR'S ORGANIZ ATION 11/20/2024 [facility] Goals (unrecognized section and content) Type Care Experience TOLAC by 41 weeks RL TCS vs IOL at that GA based on vizcaino scorepatient counseled regarding risks/benefits of trial of labor versus repeat . ACOG/uptodate education given to patient. 67 % likelihood of success per calculatorTOLAC consent form signed: signed 01/27Labor Preferences-CB/BF classes: nolabor support person: Mattlabor intervention preferences: open to AROM, would like to avoid pitocin if possiblepain management options preferred: prefers natural but open to epiduralcut cord/dad catch: maybe cordbreastfeeding: []PP control planned: []discussed possible routes of delivery and associated risks: discussed possible delivery modalities and possible indications for each including R/B/A of , VAVD, FAVD and CS. questions answered.special requests: no Care Experience VBACpatient counsele d regarding risks/benefits of trial of labor versus repeat . ACOG/uptodate education given to patient. [] % likelihood of success per calculatorTOLAC consent form signed: []Labor Preferences-CB/BF classes: nolabor support person: Mattlabor intervention preferences: []pain management options preferred: epidural ok if neededcut cord/dad catch: cordbreastfeeding: yesPP control planned: discussed-vasectomy completeddiscussed possible routes of delivery and associated risks: []special requests: [] Patient Care team informatio n (unrecognized section [...] 2024 End: October 08, 2024 Team Status: Active Member Role/Relationship Status Dates DEJUAN GONZALEZ Primary care physician Active Team Status: Inactive Member Role/Relationship Status Dates Dr. Renetta Toribio MD Attending physician Active Start: October 08, 2024 End: October 08, 2024 Team Status: Inactive Member Role/Relationship Status Dates Dr. Renetta Toribio MD Attending physician Active Start: October 08, 2024 End: October 08, 2024 Dr. Renetta Toribio MD Referring Provider Active Start: October 08, 2024 End: October 08, 2024 Team Status: Inactive Member Role/Relationship Status Dates CLIFF HEALY Attending physician Active Start: November 07, 2024 End: November 07, 2024 CLIFF HEALY Referring Provider Active Start: November 07, 2024 End: November 07, 2024 CARLOS ZAIDI Primary care physician Active Sta rt: November 07, 2024 End: November 07, 2024 Source Comments (unrecognize d section and content) In the event this informatio n is protected by the Federal Confidentiality of Alcohol and Drug Abuse Patient Records regulations: The Federal rules restrict any use of the information to criminally investigate or prosecute any alcohol or drug abuse patient.[facility] FOR RECORDS PERTAINING TO PATIENTS WHO ARE [...] BE BASED ON THE PRIMARY CLINICAL RECORDS. [facility]. provides no warranty or guarantee of the accuracy or completeness of information in this document.
[2025-01-14 11:26] LABS: Ferritin 92 ng/mL (22-378)
== END | disposition home or self-care (01) ==
LOC: LAB 09:14
PROVIDERS: Referring Provider Internal Medicine Endocrinology, Diabetes & Metabolism; Visit Provider Internal Medicine Endocrinology, Diabetes & Metabolism
DX: E03.9 Hypothyroidism, unspecified (principal)
CPT/HCPCS: 36415; 82728; 84443; 86376

== ENCOUNTER → 2025-01-29 | Outpatient (CLI) | payer BC, SELFPAY ==
[2025-01-29 18:12] LABS: Free T3 2.5 pg/mL (2.18-3.98)
== END | disposition home or self-care (01) ==
LOC: MTLAB 16:11
PROVIDERS: Referring Provider Nurse Practitioner Women's Health; Visit Provider Nurse Practitioner Women's Health
DX: E03.8 Other specified hypothyroidism (principal)
CPT/HCPCS: 36415; 84439; 84443; 84481